=== PATIENT | male | born 1925 | race American Indian/Alaskan Native ===

== ENCOUNTER 2016-07-21 11:30 | Emergency (ER) | payer MEDICARE, OTHER ==
[2016-07-21 11:40] VITALS: BMI 17.3
[2016-07-21] MEDS ORDERED: Sodium Chloride 0.9% 500 ML IV STA (11:55)
[2016-07-21 11:59] VITALS: TEMP 97.5; O2SAT 100
[2016-07-21 12:26] LABS: ADD MANUAL DIFF? NO
[2016-07-21 12:43] LABS: INR 1.06 (0.93-1.08); PARTIAL THROMBOPLASTIN TIME 19.7 Seconds (23.7-30.8)
--- NOTE | 2016-07-21 13:00 | ED PDOC ---
Arrival/HPI - General Chief Complaint: Abdominal Pain Time Seen by Provider: 07/21/16 11:44 Historian: Patient - History of Present Illness Narrative History of Present Illness (Text): 07/21/16 12:32 A 89 year old male, whose past medical history includes hypertension, CHF, cholecystectomy, GI bleed, Hep C, and Renal insufficiency, presents to the emergency room with complaints of periumbilical pain for 2 weeks. Patient notes that this pain is similar to previous episodes in the past. Patient denies any nausea, vomiting, diarrhea, blood in stool, chest pain, shortness of breath, dyspnea on exertion, or any other complaints. Patient states that he has seen his PMD and [employer] for these symptoms. PMD: Dr. Roth Time/Duration: < month (2 weeks) Symptom Onset: Sudden Symptom Course: Unchanged Quality: Other ("Pain") Activities at Onset: Light Context: Home Past Medical History - Provider Review Nursing Documentation Reviewed: Yes - Infectious Disease Hx of Infectious Diseases: None - Tetanus Immunization Tetanus Immunization: Unknown - Cardiac Hx Cardiac Disorders: Yes Hx Hypertension: Yes - Pulmonary Hx Chronic Obstructive Pulmonary Disease (COPD): Yes - Neurological HX Cerebrovascular Accident: Yes - HEENT Hx HEENT Disorder: Yes (Wears glasses.) Hx Cataracts: Yes (Hx of bilateral cataract extractions.) - Renal Hx Renal Failure: Yes - Endocrine/Metabolic Hx Diabetes Mellitus Type 2: Yes - Hematological/Oncological Hx Blood Disorders: Yes Hx Anemia: Yes Hx Hepatitis C: Yes - Integumentary Hx Dermatological Disorder: No - Musculoskeletal/Rheumatological Hx Arthritis: Yes - Gastrointestinal Hx Gastrointestinal Disorders: Yes (GI BLEED) Hx Pancreatitis: Yes - Genitourinary/Gynecological Hx Genitourinary Disorders: Yes (RENAL INSUFFICIENCY,H/O URINARY RETENTION) Hx Reproductive Disorders: Yes (BPH) - Psychiatric Hx Psychophysiologic Disorder: No Hx Substance Use: No - Past Surgical History Past Surgical History: No Previous - Surgical History Hx Joint Replacement: Yes (Hx of Left Hip Replacement; Right Knee Replacement.) Hx Orthopedic Surgery: Yes - Anesthesia Hx Anesthesia: Yes Hx Anesthesia Reactions: No Hx Malignant Hyperthermia: No - Suicidal Assessment Feels Threatened In Home Enviroment: No Family/Social History - Physician Review Nursing Documentation Reviewed: Yes Family/Social History: No Known Family HX Smoking Status: Former Smoker Hx Alcohol Use: No Hx Substance Use: No Hx Substance Use Treatment: No Allergies/Home Meds Allergies/Adverse Reactions: Allergies No Known Allergies Allergy (Verified 07/21/16 11:40) Home Medications: Home Meds Medication Instructions Recorded Confirmed Finasteride 5 mg PO DAILY 07/27/11 07/21/16 Hydrochlorothiazide [HCTZ] 25 mg PO DAILY 10/25/13 07/21/16 Furosemide [Lasix] 40 mg PO DAILY 06/04/15 07/21/16 Lisinopril [Zestril] 5 mg PO DAILY 06/04/15 07/21/16 Physical Exam - Physical Exam Narrative Physical Exam (Text): 07/21/16 13:01 - Review of Systems Constitutional: Normal. absent: Fatigue, Weight Change, Fevers Eyes: Normal ENT: Normal Respiratory: Normal absent: SOB, Cough, Sputum Cardiovascular: Normal absent: Chest pain, Palpitations, Syncope Gastrointestinal: Periumbilical pain. absent: Diarrhea, Nausea, Vomiting Genitourinary: Normal. absent: Dysuria, Frequency, Hematuria Musculoskeletal: Normal. absent: Arthralgias, Back Pain, Neck Pain Skin: Normal Neurological: Normal absent: Focal Weakness Endocrine: Normal Hemo/Lymphatic: Normal Psychiatric: Normal - Physical exam Patient appears age appropriate, speaking full sentences without difficulty - Systems Exam Head: Present: Atraumatic, Normocephalic Pupils: Present: PERRL Extraocular Muscles: Present: EOMI Conjunctiva: Present: Normal Mouth: Present: Moist Mucous Membranes Neck: Present: Normal Range of Motion. No: MIDLINE TENDERNESS, Paraspinal Tenderness Respiratory/Chest: Present: Clear to Auscultation, Good Air Exchange. No: Respiratory Distress, Accessory Muscle Use, Tachypneic Cardiovascular: Present: Regular Rate and Rhythm, Normal S1, S2, Peripheral Pulses Present. No: Murmurs Abdomen: Present: Normal Bowel Sounds, No: Tenderness, Peritoneal Signs, Rebound, Guarding, Distention Back: Present: Normal Inspection. No: Midline Tenderness, Paraspinal Tenderness Upper Extremity: Present: Normal Inspection. No: Cyanosis, Edema Lower Extremity: Present: Normal Inspection. No: Edema Neurological: Present: GCS=15, Speech Normal, cranial nerves II through XII fully intact with no cerebellar abnormality, neuro-sensory fully intact. No focal neurological deficits. Skin: Present: Warm, Dry, Normal Color. No: Rashes Lymphatic: Present: OX3, NI, NC Psychiatric: Present: Alert, Oriented x 3, Normal Insight, Normal Concentration Vital Signs Reviewed: Yes Vital Signs Temp Pulse Resp BP Pulse Ox 07/21/16 13:46 67 17 143/92 H 100 07/21/16 11:30 97.5 F L 60 16 138/80 100 Temperature: Afebrile Blood Pressure: Normal Pulse: Regular Respiratory Rate: Normal Appearance: Positive for: Well-Appearing, Non-Toxic, Comfortable Pain Distress: None Mental Status: Positive for: Alert and Oriented X 3 Medical Decision Making ED Course and Treatment: 07/21/16 13:06 Impression: A 89 year old male with periumbilical pain. No acute findings on examination. Differential Diagnosis included but are not limited to: Dehydration vs. Non- specific abdominal pain vs. Gastritis Plan: -- Abdomen & Pelvis CT -- EKG -- Chest X-ray -- Labs/Urinalysis -- Protonix -- Reassess and disposition Prior Visits: Notes and results from previous visits were reviewed. Patient was in the Emergency department on 05/31/16 for abdominal pain. Patient was discharged home after negative CT scan. Progress Notes: EKG ED physician ordered, reviewed, and independently interpreted the EKG. Rate: 63 BPM Rhythm: NSR Interpretation: No ST elevations, normal axis, normal intervals. Comparison: No changes vs previous EKG on 05/31/16. 07/21/16 14:36 CXR Impression: As read by Dr. Menard, no active disease. Abdomen & Pelvis CT Impression: As read by Dr. Cadena; Markedly limited study due to lack of oral and IV contrast as well as paucity of intra-abdominal and intrapelvic fat Urinary bladder is distended. Mild hydronephrosis bilaterally. Innumerable bilateral renal cysts. Cholecystectomy. Left hip arthroplasty. Ill-defined sclerotic region involving the right femoral head ; avascular necrosis is not excluded. There is decreased mineralization of the bones, most likely representing osteoporosis. Rarely, underlying metabolic bone disease or infiltrative lesions can also have this appearance. This decreases the sensitivity for detection of acute fracture lines, and if this is of clinical concern, MRI should be considered. 07/21/16 15:[address] read noted and relayed to Dr. Roth. Pt denies any LE or hip pain. pt informed of hematuria and importance of f/u with PMD for further w/u On reevaluation, patient reports that she feels much better and would like to be discharged home. Patient's repeat abdominal exam is soft, nontender, non distended with positive bowel sounds in all 4 quadrants and no peritoneal signs. Patient is tolerating PO without any difficulty. Pt states he understands to return to the ER right away for new or worsening symptoms or for inability to f/u with PMD or specialist as instructed. Patient states that he fully agrees with and understands discharge instructions. States that he agrees with the plan and disposition. Verbalized and repeated discharge instructions and plan. I have given the patient opportunity to ask any additional questions. - Lab Interpretations Lab Results: 07/21/16 12:00 07/21/16 13:40 Lab Results 07/21/16 13:40: Urine Color Yellow, Urine Appearance Clear, Urine pH 6.5, Ur Specific [place] 1.010, Urine Protein Negative, Urine Glucose (UA) Negative, Urine Ketones Negative, Urine Blood Trace-lysed H, Urine Nitrate Negative, Urine Bilirubin Negative, Urine Urobilinogen 0.2, Ur Leukocyte Esterase Negative , Urine RBC 1 - 3, Urine WBC 1 - 3, Ur Epithelial Cells 3 - 4, Urine Bacteria Few 07/21/16 13:40: Sodium 139, Potassium 4.0, Chloride 107, Carbon Dioxide 22, Anion Gap 14, BUN 32 H, Creatinine 2.2 H, Est GFR ( Amer) 34, Est GFR ( Non-Af Amer) 28, Random Glucose 100, Calcium 11.0 H, Total Bilirubin 0.5, AST 27 , ALT 35, Alkaline Phosphatase 115, Lactate Dehydrogenase 579, Total Creatine Kinase 124, Troponin I 0.02 D, Total Protein 7.0, Albumin 3.6, Globulin 3.4, Albumin/Globulin Ratio 1.1, Lipase 219 07/21/16 12:00: PT 11.4, INR 1.06, APTT 19.7 L 07/21/16 12:00: WBC 2.4 L* D, RBC 4.30, Hgb 10.9 L, Hct 34.0 L, MCV 79.1 L, MCH 25.3, MCHC 32.1, RDW 18.8 H, Plt Count 181, MPV 10.8, Gran % 67.2, Lymph % (Auto ) 23.0, [place] % (Auto) 8.5 H, Eos % (Auto) 0.4 L, Baso % (Auto) 0.9, Gran # 1.58 , Lymph # 0.5 L, [place] # 0.2, Eos # 0.0, Baso # 0.02 - RAD Interpretation Radiology Orders: 07/21/16 11:55 ABD & PELVIS W/O PO OR IV CONT [CT] Stat CHEST PORTABLE [RAD] Stat - Medication Orders Current Medication Orders: Discontinued Medications Sodium Chloride (Sodium Chloride 0.9%) 500 mls @ 1,000 mls/hr IV .Q30M STA Stop: 07/21/16 12:24 Last Admin: 07/21/16 12:25 Dose: 1,000 mls/hr Pantoprazole Sodium (Protonix Inj) 40 mg IVP STAT STA Stop: 07/21/16 11:56 Last Admin: 07/21/16 12:25 Dose: 40 mg - Scribe Statement The provider has reviewed the documentation as recorded by the Priyank Barrett Provider Scribe Attestation: All medical record entries made by the Priyank were at my direction and personally dictated by me. I have reviewed the chart and agree that the record accurately reflects my personal performance of the history, physical exam, medical decision making, and the department course for this patient. I have also personally directed, reviewed, and agree with the discharge instructions and disposition. Disposition/Present on Arrival - Present on Arrival Any Indicators Present on Arrival: No History of DVT/PE: No History of Uncontrolled Diabetes: No Urinary Catheter: No History of Decub. Ulcer: No History Surgical Site Infection Following: None - Disposition Have Diagnosis and Disposition been Completed?: Yes Diagnosis: Abdominal pain Disposition: HOME/ ROUTINE Disposition Time: 15:18 Patient Plan: Discharge Condition: GOOD Discharge Instructions (ExitCare): Abdominal Pain (ED) Additional Instructions: PLEASE RETURN TO THE EMERGENCY DEPARTMENT FOR NEW OR WORSENING SYMPTOMS. RETURN RIGHT AWAY IF YOU CANNOT FOLLOW UP WITH YOUR PRIMARY CARE DOCTOR, CLINIC, OR SPECIALIST IN 1-2 DAYS. Referrals: Rickey Roth JD, MD [Primary Care Provider] - Follow up with primary
[2016-07-21 13:53] LABS: BASO # 0.02 K/mm3 (0.0-2.0); BASO % 0.9 % (0.0-3.0); EOS % 0.4 % (1.5-5.0); GRAN # 1.58 (1.4-6.5); GRAN % 67.2 % (50.0-68.0); LYMPH # 0.5 (1.2-3.4); MEAN CELL VOLUME 79.1 fL (80.0-105.0); MEAN CORPUSCULAR HEMOGLOBIN 25.3 pg (25.0-35.0); MEAN CORPUSCULAR HGB CONC 32.1 g/dl (31.0-37.0); MEAN PLATELET VOLUME 10.8 fl (7.0-11.0); MONO # 0.2 (0.1-0.6); MONO % 8.5 % (1.0-6.0); PLATELET COUNT 181 10^3/uL (120.0-450.0); RED CELL DISTRIBUTION WIDTH 18.8 % (11.5-14.5)
[2016-07-21 13:53] LABS: PH,URINE 6.5 (4.7-8.0); URINE BILIRUBIN NEGATIVE (NEGATIVE); URINE BLOOD TRACE-LYSED (NEGATIVE); URINE GLUCOSE (UA) NEGATIVE (NEGATIVE); URINE KETONE NEGATIVE (NEGATIVE); URINE LEUKOCYTE ESTERASE NEGATIVE Leu/uL (NEGATIVE); URINE PROTEIN NEGATIVE mg/dL (<30 mg/dL); URINE UROBILINOGEN 0.2 E.U./dL (<1 E.U./dL)
--- NOTE | 2016-07-21 13:53 | RAD ---
HISTORY: cough COMPARISON: 06/04/2015 FINDINGS: LUNGS: No active pulmonary disease. PLEURA: No significant pleural effusion identified, no pneumothorax apparent. CARDIOVASCULAR: Normal. OSSEOUS STRUCTURES: No significant abnormalities. VISUALIZED UPPER ABDOMEN: Normal. OTHER FINDINGS: None. IMPRESSION: No active disease.
[2016-07-21 13:58] LABS: URINE APPEARANCE CLEAR (CLEAR); URINE COLOR YELLOW (YELLOW)
[2016-07-21 14:02] LABS: ALB/GLOB RATIO 1.1 (1.1-1.8); BILIRUBIN,TOTAL 0.5 mg/dL (0.2-1.3)
[2016-07-21 14:02] LABS: WHITE BLOOD COUNT 2.4 10^3/ul (4.5-11.0)
--- NOTE | 2016-07-21 14:08 | CT ---
PROCEDURE: CT Abdomen and Pelvis without Oral or IV contrast. HISTORY: abd pain COMPARISON: CT abdomen and pelvis without IV contrast performed 05/31/16 TECHNIQUE: Contiguous axial images of the abdomen and pelvis. No oral or IV contrast administered. Coronal and Sagittal reformats generated. Radiation dose: Total exam DLP = 183.64 mGy-cm. This CT exam was performed using one or more of the following dose reduction techniques: Automated exposure control, adjustment of the mA and/or kV according to patient size, and/or use of iterative reconstruction technique. FINDINGS: Examination markedly limited due to paucity of intra-abdominal and intrapelvic fat as well as lack of oral or IV contrast. LOWER THORAX: Mild bibasilar atelectasis. There is no visible pleural effusion or pneumothorax. LIVER: Grossly unremarkable unenhanced appearance. GALLBLADDER AND BILE DUCTS: Cholecystectomy. PANCREAS: Not well-visualized; grossly unremarkable. SPLEEN: Unremarkable unenhanced appearance. ADRENALS: Not well-visualized. KIDNEYS AND URETERS: Mild bilateral hydronephrosis. No obstructing renal calculus. Innumerable low-density lesions bilaterally presumably cysts. BLADDER: Distended urinary bladder appears otherwise unremarkable. REPRODUCTIVE: Enlarged heterogeneous prostate gland partially obscured by streak artifact from hip arthroplasty. APPENDIX: Not definitively identified. No secondary signs of acute appendicitis identified. BOWEL: The stomach is nondistended ; evidence of partial gastrectomy. Lack of oral contrast limits evaluation for bowel pathology. No evidence of bowel obstruction. PERITONEUM: No significant free fluid. No definite free air. LYMPH NODES: No bulky lymphadenopathy identified. VASCULATURE: Extensive dense vascular calcifications. BONES: Left hip arthroplasty. Ill-defined sclerotic region involving the right femoral head ; a avascular necrosis is not excluded. There is decreased mineralization of the bones, most likely representing osteoporosis. Rarely, underlying metabolic bone disease or infiltrative lesions can also have this appearance. This decreases the sensitivity for detection of acute fracture lines, and if this is of clinical concern, MRI should be considered. OTHER FINDINGS: None. IMPRESSION: Markedly limited study due to lack of oral and IV contrast as well as paucity of intra-abdominal and intrapelvic fat Urinary bladder is distended. Mild hydronephrosis bilaterally. Innumerable bilateral renal cysts. Cholecystectomy. Left hip arthroplasty. Ill-defined sclerotic region involving the right femoral head ; avascular necrosis is not excluded. There is decreased mineralization of the bones, most likely representing osteoporosis. Rarely, underlying metabolic bone disease or infiltrative lesions can also have this appearance. This decreases the sensitivity for detection of acute fracture lines, and if this is of clinical concern, MRI should be considered. Additional findings as above.
[2016-07-21 14:13] LABS: TROPONIN I 0.02 ng/mL
[2016-07-21 14:27] LABS: URINE BACTERIA FEW (NEG)
--- NOTE | 2016-07-21 14:59 | CARD ---
APPROVED REPORT EKG Measurement Heart [id number] ME [id number] <Conclusion> Normal sinus rhythm Somatic Tremors/Artifact.
[2016-07-21 16:23] VITALS: BP 163/80; PULSE 79; RESP 16
== END 2016-07-21 16:27 | disposition home or self-care (01) ==
LOC: ED 11:30
DX: R10.9 Unspecified abdominal pain (principal)
CPT/HCPCS: 71010; 74176; 80053; 81001; 82550; 83615; 83690; 84484; 85025; 85610; 85730; 87040; 87086; 93005; 96374; 99284; C9113; J7040

== ENCOUNTER 2016-07-25 14:17 | Inpatient (IN) | payer MEDICARE, OTHER ==
[2016-07-25] MEDS ORDERED: Sodium Chloride 0.9% 500 ML IV STA (14:56)
--- NOTE | 2016-07-25 14:57 | ED PDOC ---
Arrival/HPI - General Chief Complaint: Abdominal Pain Time Seen by Provider: 07/25/16 14:19 Historian: Patient - History of Present Illness Narrative History of Present Illness (Text): 07/25/16 15:01 An 89 year old male, whose past medical history includes CHF, hypertension and cholecystectomy, presents to the emergency department complaining of periumbilical pain for the past two weeks. Patient reports similar pain in the past. Patient denies any other complaints at this time. Time/Duration: Other (2 weeks) Symptom Onset: Sudden Symptom Course: Unchanged Quality: Other (pain) Activities at Onset: Rest Context: Home Associated Symptoms (Text): none Past Medical History - Provider Review Nursing Documentation Reviewed: Yes - Infectious Disease Hx of Infectious Diseases: None - Tetanus Immunization Tetanus Immunization: Unknown - Cardiac Hx Cardiac Disorders: Yes Hx Hypertension: Yes - Pulmonary Hx Chronic Obstructive Pulmonary Disease (COPD): Yes - Neurological HX Cerebrovascular Accident: Yes - HEENT Hx HEENT Disorder: Yes (Wears glasses.) Hx Cataracts: Yes (Hx of bilateral cataract extractions.) - Renal Hx Renal Failure: Yes - Endocrine/Metabolic Hx Diabetes Mellitus Type 2: Yes - Hematological/Oncological Hx Blood Disorders: Yes Hx Anemia: Yes Hx Hepatitis C: Yes - Integumentary Hx Dermatological Disorder: No - Musculoskeletal/Rheumatological Hx Arthritis: Yes - Gastrointestinal Hx Gastrointestinal Disorders: Yes (GI BLEED) Hx Pancreatitis: Yes - Genitourinary/Gynecological Hx Genitourinary Disorders: Yes (RENAL INSUFFICIENCY,H/O URINARY RETENTION) Hx Reproductive Disorders: Yes (BPH) - Psychiatric Hx Psychophysiologic Disorder: No Hx Substance Use: No - Past Surgical History Past Surgical History: No Previous - Surgical History Hx Joint Replacement: Yes (Hx of Left Hip Replacement; Right Knee Replacement.) Hx Orthopedic Surgery: Yes - Anesthesia Hx Anesthesia: Yes Hx Anesthesia Reactions: No Hx Malignant Hyperthermia: No - Suicidal Assessment Feels Threatened In Home Enviroment: No Family/Social History - Physician Review Nursing Documentation Reviewed: Yes Family/Social History: No Known Family HX Smoking Status: Former Smoker Hx Alcohol Use: No Hx Substance Use: No Hx Substance Use Treatment: No Allergies/Home Meds Allergies/Adverse Reactions: Allergies No Known Allergies Allergy (Verified 07/25/16 14:37) Home Medications: Home Meds Medication Instructions Recorded Confirmed Finasteride 5 mg PO DAILY 07/27/11 07/21/16 Hydrochlorothiazide [HCTZ] 25 mg PO DAILY 10/25/13 07/21/16 Furosemide [Lasix] 40 mg PO DAILY 06/04/15 07/21/16 Lisinopril [Zestril] 5 mg PO DAILY 06/04/15 07/21/16 Review of Systems - Physician Review All systems were reviewed & negative as marked: Yes Physical Exam - Physical Exam Narrative Physical Exam (Text): 07/25/16 15:03- Review of Systems Constitutional: Normal. absent: Fatigue, Weight Change, Fevers Eyes: Normal ENT: Normal Respiratory: Normal absent: SOB, Cough, Sputum Cardiovascular: Normal absent: Chest pain, Palpitations, Syncope Gastrointestinal: Normal absent: Abdominal pain, Diarrhea, Nausea, Vomiting Genitourinary: Present: periumbilical pain absent: Dysuria, Frequency, Hematuria Musculoskeletal: Normal. absent: Arthralgias, Back Pain, Neck Pain Skin: Normal Neurological: Normal absent: Focal Weakness Endocrine: Normal Hemo/Lymphatic: Normal Psychiatric: Normal - Physical exam Patient appears age appropriate, speaking full sentences without difficulty - Systems Exam Head: Present: Atraumatic, Normocephalic Pupils: Present: PERRL Extraocular Muscles: Present: EOMI Conjunctiva: Present: Normal Mouth: Present: Moist Mucous Membranes Neck: Present: Normal Range of Motion. No: MIDLINE TENDERNESS, Paraspinal Tenderness Respiratory/Chest: Present: Clear to Auscultation, Good Air Exchange. No: Respiratory Distress, Accessory Muscle Use, Tachypneic Cardiovascular: Present: Regular Rate and Rhythm, Normal S1, S2, Peripheral Pulses Present. No: Murmurs Abdomen: Present: Normal Bowel Sounds, No: Tenderness, Peritoneal Signs, Rebound, Guarding, Distention Back: Present: Normal Inspection. No: Midline Tenderness, Paraspinal Tenderness Upper Extremity: Present: Normal Inspection. No: Cyanosis, Edema Lower Extremity: Present: Normal Inspection. No: Edema Neurological: Present: GCS=15, Speech Normal, cranial nerves II through XII fully intact with no cerebellar abnormality, neuro-sensory fully intact. No focal neurological deficits. Skin: Present: Warm, Dry, Normal Color. No: Rashes Lymphatic: Present: OX3, NI, NC Psychiatric: Present: Alert, Oriented x 3, Normal Insight, Normal Concentration Vital Signs Reviewed: Yes Vital Signs Temp Pulse Resp BP Pulse Ox 07/25/16 15:56 69 18 128/71 98 07/25/16 14:29 98.2 F 74 18 130/75 98 Temperature: Afebrile Blood Pressure: Normal Pulse: Regular Respiratory Rate: Normal Appearance: Positive for: Well-Appearing, Non-Toxic, Comfortable Pain Distress: None Mental Status: Positive for: Alert and Oriented X 3 Medical Decision Making ED Course and Treatment: Impression: An 89 year old male with periumbilical pain. On physical exam, patient had no acute findings. Differential Diagnosis include but are not limited to: nonspecific abdominal pain vs. gastritis vs. pancreatitis Plan: -- EKG -- chest xray -- labs -- Urinalysis -- Reassess and disposition Prior Visits: Notes and results from previous visits were reviewed. Patient was last seen in the emergency department on 07/21/16 for evaluation of similar periumbilical pain. Patient was stable and requested to be discharged home. Progress Notes: EKG: Ordered, reviewed, and independently interpreted the EKG. Rate : BPM Rhythm : NSR Interpretation : No ST-segment elevations or depressions, no T-wave inversions, normal intervals. Comparison : No previous EKG for comparison. Chest xray interpreted by ED physician shows no pneumothorax, no cardiomegaly, no infiltrates 07/25/16 16:[address] Rickey Roth in detail, he agrees to admit patient for acute pancreatitis and further workup. Patient aware of and agrees with plan. - Lab Interpretations Lab Results: 07/25/16 15:00 07/25/16 15:00 Lab Results 07/25/16 15:00: pO2 56 H, VBG pH 7.30 L, VBG pCO2 53.0, VBG HCO3 26.1, VBG Total CO2 27.7, VBG O2 Sat (Calc) 92.0 H, VBG Base Excess -1.1 L, VBG Potassium 5.4 H, Sodium 143.0, Chloride 113.0 H, Glucose 113 H, Lactate 2.0, FiO2 21.0, Venous Blood Potassium 5.4 H 07/25/16 15:00: Sodium 141, Chloride 105, Potassium 5.4 H, Carbon Dioxide 26, Anion Gap 15, BUN 45 H, Creatinine 2.7 H, Est GFR ( Amer) 27, Est GFR ( Non-Af Amer) 22, Random Glucose 101, Calcium 12.0 H, Total Bilirubin 0.8, AST 28 , ALT 39, Alkaline Phosphatase 102, Lactate Dehydrogenase 813 H, Total Creatine Kinase 140, Troponin I 0.03 D, Total Protein 7.7, Albumin 4.1, Globulin 3.6, Albumin/Globulin Ratio 1.1, Lipase 380 H 07/25/16 15:00: PT 11.3, INR 1.05, APTT 22.5 L 07/25/16 15:00: WBC 2.8 L*, RBC 4.78, Hgb 12.2 L, Hct 38.2 L, MCV 79.9 L, MCH 25.5, MCHC 31.9, RDW 18.9 H, Plt Count 222, MPV 10.8, Gran % 57.7, Lymph % (Auto ) 32.4, [place] % (Auto) 8.1 H, Eos % (Auto) 1.1 L, Baso % (Auto) 0.7, Gran # 1.64 , Lymph # 0.9 L, [place] # 0.2, Eos # 0.0, Baso # 0.02 I have reviewed the lab results: Yes - RAD Interpretation Radiology Orders: 07/25/16 14:55 CHEST PORTABLE [RAD] Stat - EKG Interpretation Interpreted by ED Physician: Yes Type: 12 lead EKG - Medication Orders Current Medication Orders: Discontinued Medications Sodium Chloride (Sodium Chloride 0.9%) 500 mls @ 1,000 mls/hr IV .Q30M STA Stop: 07/25/16 15:25 Last Admin: 07/25/16 15:15 Dose: 1,000 mls/hr Pantoprazole Sodium (Protonix Inj) 40 mg IVP STAT STA Stop: 07/25/16 14:57 Last Admin: 07/25/16 15:15 Dose: 40 mg - [place] Statement The provider has reviewed the documentation as recorded by the Priyank Wolff All medical record entries made by the Priyank were at my direction and personally dictated by me. I have reviewed the chart and agree that the record accurately reflects my personal performance of the history, physical exam, medical decision making, and the department course for this patient. I have also personally directed, reviewed, and agree with the discharge instructions and disposition. Disposition/Present on Arrival - Present on Arrival Any Indicators Present on Arrival: No History of DVT/PE: No History of Uncontrolled Diabetes: No Urinary Catheter: No History of Decub. Ulcer: No History Surgical Site Infection Following: None - Disposition Have Diagnosis and Disposition been Completed?: Yes Diagnosis: Acute pancreatitis Disposition: HOSPITALIZED Disposition Time: 16:04 Patient Plan: Admission Condition: FAIR
[2016-07-25 15:17] LABS: ADD MANUAL DIFF? NO
[2016-07-25 15:22] LABS: BASO # 0.02 [, K/mm3] (0.0-2.0); BASO % 0.7 % (0.0-3.0); EOS % 1.1 % (1.5-5.0); GRAN # 1.64 (1.4-6.5); GRAN % 57.7 % (50.0-68.0); HEMATOCRIT 38.2 % (42.0-52.0); LYMPH # 0.9 (1.2-3.4); LYMPH % 32.4 % (22.0-35.0); MEAN CELL VOLUME 79.9 fL (80.0-105.0); MEAN CORPUSCULAR HEMOGLOBIN 25.5 pg (25.0-35.0); MEAN CORPUSCULAR HGB CONC 31.9 g/dl (31.0-37.0); MEAN PLATELET VOLUME 10.8 fl (7.0-11.0); MONO # 0.2 (0.1-0.6); MONO % 8.1 % (1.0-6.0); PLATELET COUNT 222 [, 10^3/uL] (120.0-450.0); RED CELL DISTRIBUTION WIDTH 18.9 % (11.5-14.5)
[2016-07-25 15:30] LABS: VENOUS BLOOD GAS BASE EXCESS -1.1 mmol/L (0.0-2.0)
[2016-07-25 15:41] LABS: ALB/GLOB RATIO 1.1 (1.1-1.8); BILIRUBIN,TOTAL 0.8 mg/dL (0.2-1.3); TOTAL PROTEIN 7.7 g/dL (5.8-8.3)
[2016-07-25 15:42] LABS: POTASSIUM 5.4 mmol/L (3.6-5.0)
[2016-07-25 15:47] LABS: INR 1.05 (0.93-1.08); PARTIAL THROMBOPLASTIN TIME 22.5 Seconds (23.7-30.8)
[2016-07-25 15:52] LABS: TROPONIN I 0.03 ng/mL
[2016-07-25 15:53] LABS: WHITE BLOOD COUNT 2.8 [, 10^3/ul] (4.5-11.0)
[2016-07-25] MEDS ORDERED: Morphine 2 mg/ml ISec IVP STA (16:06)
[2016-07-25] MEDS: Sodium Chloride 0.9% 1,000 ML IV SCH (17:00)
[2016-07-25 20:19] LABS: VENOUS BLOOD PH 7.43 (7.32-7.43)
--- NOTE | 2016-07-25 20:54 | CARD ---
APPROVED REPORT EKG Measurement Heart [id number] <Conclusion> Sinus rhythm with premature atrial complexes Otherwise normal ECG
--- NOTE | 2016-07-26 10:28 | RAD ---
HISTORY: cough COMPARISON: 07/21/2016 FINDINGS: LUNGS: No active pulmonary disease. PLEURA: No significant pleural effusion identified, no pneumothorax apparent. CARDIOVASCULAR: Normal. OSSEOUS STRUCTURES: No significant abnormalities. VISUALIZED UPPER ABDOMEN: Normal. OTHER FINDINGS: None. IMPRESSION: No active disease.
--- NOTE | 2016-07-26 16:18 | HP ---
HISTORY OF PRESENT ILLNESS: The patient is an 89-year-old male admitted through the Emergency Room c omplaining of 1-2 days of increasing abdominal pain. No nausea, no vomiting, no diarrhea, no jaundic e, no fever, no chills, no dysuria. The patient has a history of recurrent pancreatitis in the past and was found to have an elevation of his lipase level at 380 and is admitted for further evaluation and treatment. 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 PAST SURGICAL HISTORY: Includes benign prostatic hypertrophy. CURRENT MEDICATIONS: Include finasteride 5 mg daily, Imdur 30 mg daily, Protonix 40 mg daily and Michael aLax p.r.n. He is also on hydrochlorothiazide 25 mg, Lasix 40 mg daily, and lisinopril 5 mg daily. ALLERGIES: The patient has no known drug allergies. SOCIAL HISTORY: The patient lives alone. He is independent with ADLs and needs some assistance with IADLs. He has a greater than 24-donj-lsct history of tobacco use. There is no history of alcohol u se. REVIEW OF SYSTEMS: Essentially negative other than above. The patient denies any chest pain or shor tness of breath. 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 He has had significant weight loss over the past several months. PHYSICAL EXAMINATION: GENERAL: The patient is a somewhat cachectic male in no acute distress. VITAL SIGNS: Blood pressure 130/82, pulse 59, temperature 97.5, respiratory rate 18. HEENT: Head is normocephalic, atraumatic. Pupils equal, round and reactive to light. Extraocular m ovements intact. NECK: Supple, with no thyromegaly, no carotid bruit. LUNGS: Clear. HEART: Regular rate and rhythm. ABDOMEN: Soft with mild epigastric tenderness to palpation with no guarding, no rebound. Bowel soun ds are normoactive. EXTREMITIES: Without cyanosis, clubbing or edema. There is some clubbing and generalized muscular a trophy of all 4 extremities bilaterally. NEUROLOGIC: The patient is awake and oriented x 3 without focal sensory or motor deficits. SKIN: Warm and dry. LABORATORY DATA: WBC is 2.8, hemoglobin 12.2, hematocrit 38.2. Sodium 141, potassium 5.4, chloride 105, CO2 of 26, BUN 45, creatinine 2.7. Calcium is slightly elevated at 12.0. LDH is 813. Lipase e levated at 380. IMPRESSION: 1. Acute pancreatitis. 2. Hyperkalemia, possibly secondary to angiotensin converting enzyme inhibitors. 3. Chronic obstructive pulmonary disease. 4. Hypertension. 5. Coronary artery disease. 6. Benign prostatic hypertrophy. PLAN: Will hold DAVID inhibitors, monitor blood pressure. Will obtain GI consult from Dr. Leon alvarado possible MRCP. Will maintain patient on liquid diet, n.p.o. except for meds and clear liquid diet. Monitor electrolytes and calcium level. Rickey L Gonzalez BOYKIN MD cc: 353 TT: 07/26/2016 16:17:17 mn
--- NOTE | 2016-07-26 18:24 | PN ---
DATE: 07/26/2016 Seen and examined at the bedside earlier today. He does complain of abdominal discomfort. No nausea or vomiting. Rates the pain at 10/10. He is on a full liquid diet and tolerated half of it. No reports of any fever, chills, shortness of breath or chest pain. VITAL SIGNS: Temperature is 97.5, blood pressure 130/82, pulse 59, respirations 18, 100% on room air. LABORATORY DATA: No new labs are noted for today. PHYSICAL EXAMINATION: HEENT: Sclerae anicteric. NECK: Supple. CARDIAC: S1, S2. LUNGS: Decreased breath sounds but good air entry. ABDOMEN: With bowel sounds. It is soft. He does have some tenderness, but no rebound or guarding. EXTREMITIES: No edema. NEUROLOGIC: Awake, alert, and oriented. ASSESSMENT: This is an 89-year-old male with a history of CHF, hypertension, cholecystectomy, complaining of periumbilical pain x 2 weeks. The patient is here with acute pancreatitis, history of coronary artery disease and diabetes mellitus. The patient with hyperkalemia, may be secondary to DAVID inhibitor. PLAN: I spoke with the patient, he agrees to have MRCP for further evaluation of the pancreas. This is going to be done without contrast. Keep him on a liquid diet. Monitor LFTs and enzymes. He is going to have repeat labs, monitor the potassium, continue IV fluids for hydration. The patient was seen and case discussed with Dr. Quintero. Nancy CASTANON cc: 451 TT: 07/26/2016 18:23:13 Confirmation # [id number] Dictation # [id number] nanci BAKER
[2016-07-26] MEDS: Sodium Chloride 0.9% 1,000 ML IV SCH (19:39)
[2016-07-27] MEDS ORDERED: Magnesium Hydroxide Susp 30 ml UD PO ONE (00:33)
--- NOTE | 2016-07-27 01:25 | CP.PCM.PN ---
Subjective - Date & Time of Evaluation Date of Evaluation: 07/27/16 Time of Evaluation: 01:24 - Subjective Subjective: S:Patient was seen at bedside . Complained of having no bowel movement in 2 days. States that he takes dulcolax at home sometimes. Has no other complaints. Pertinent medical record was reviewed. O:VSS. Not in distress. ABD:Soft , non tender. Bowel sounds + A:Constipation. P:MOM 30 CC PO stat. Objective - Vital Signs/Intake and Output Vital Signs (last 24 hours): Temp Pulse Resp BP Pulse Ox 97.6 F 60 18 120/80 100 07/26/16 16:00 07/26/16 16:00 07/26/16 16:00 07/26/16 16:00 07/26/16 16:00 Intake and Output: 07/26/16 07/27/16 18:59 06:59 Intake Total 120 420 Output Total 300 150 Balance -180 270 - Medications Medications: Current Medications Sodium Chloride (Sodium Chloride 0.9%) 1,000 mls @ 60 mls/hr IV .[id number] DENNIS Last Admin: 07/26/16 19:39 Dose: 60 mls/hr - Labs Labs: PT 11.3 Seconds (9.9-11.8) 07/25/16 15:00 INR 1.05 (0.93-1.08) 07/25/16 15:00 APTT 22.5 Seconds (23.7-30.8) L 07/25/16 15:00
[2016-07-27 07:16] LABS: ADD MANUAL DIFF? NO
[2016-07-27 07:19] LABS: BASO # 0.02 [, K/mm3] (0.0-2.0); BASO % 0.7 % (0.0-3.0); EOS # 0.1 (0.0-0.7); EOS % 3.7 % (1.5-5.0); GRAN # 1.65 (1.4-6.5); GRAN % 55.5 % (50.0-68.0); HEMATOCRIT 37.1 % (42.0-52.0); LYMPH # 0.9 (1.2-3.4); MEAN CELL VOLUME 79.4 fL (80.0-105.0); MEAN CORPUSCULAR HEMOGLOBIN 25.1 pg (25.0-35.0); MEAN CORPUSCULAR HGB CONC 31.5 g/dl (31.0-37.0); MEAN PLATELET VOLUME 11.4 fl (7.0-11.0); MONO # 0.3 (0.1-0.6); MONO % 9.1 % (1.0-6.0); PLATELET COUNT 227 [, 10^3/uL] (120.0-450.0); RED CELL DISTRIBUTION WIDTH 18.7 % (11.5-14.5)
[2016-07-27 07:52] LABS: BILIRUBIN,TOTAL 0.7 mg/dL (0.2-1.3); CALCIUM 11.2 mg/dL (8.4-10.5); POTASSIUM 5.2 mmol/L (3.6-5.0); TOTAL PROTEIN 6.8 g/dL (5.8-8.3)
--- NOTE | 2016-07-27 14:06 | MRI ---
PROCEDURE: Magnetic Resonance Cholangiopancreatography HISTORY: Acute pancreatitis COMPARISON: None available. TECHNIQUE: Multiplanar, multisequence MR images of the abdomen were obtained, including heavily T2 weighted MRCP images of the biliary system. Rotating maximum intensity projection images of the biliary system were generated. FINDINGS: MRCP: The gallbladder has been removed. There is secondary enlargement of the common bile duct which measures 10 mm in diameter. There is also tortuosity of the common duct. There are no intraductal stones. LIVER: Several liver lesions are still seen which are high in signal intensity and well-circumscribed. These probably represent cysts or hemangiomas. GALLBLADDER: Unremarkable. SPLEEN: Unremarkable. PANCREAS: There is dilatation of a portion of the pancreatic duct in the head of the pancreas. This probably represents a pancreatic divisum. The pancreatic duct in the body and tail of the pancreas is normal in caliber. Findings are best appreciated on axial image 13 series 3. There is no pancreatic swelling or edema ADRENALS: Unremarkable. KIDNEYS: Multiple simple cysts are seen in the kidneys. AORTA: No aneurysm. ASCITES: None. OTHER FINDINGS: The report concurs with the preliminary [facility] report IMPRESSION: Mildly dilated common bile duct most likely secondary to previous cholecystectomy. No evidence of common duct stone. Probable variation of pancreatic ducts. Pancreatic two-views Um. Dilated pancreatic duct in the pancreatic head Well-circumscribed lesions in the liver most likely cysts or hemangiomas
[2016-07-27] MEDS: Sodium Chloride 0.9% 1,000 ML IV SCH (14:45)
--- NOTE | 2016-07-27 15:18 | PN ---
DATE: 07/27/2016 SUBJECTIVE: The patient is lying in bed in no acute distress. He complains of some epigastric disco mfort. There is no nausea, no vomiting, no diarrhea, no jaundice, no chest pain or shortness of rodolfo th. PHYSICAL EXAMINATION: VITAL SIGNS: Blood pressure 146/87, temperature 97.5, pulse 59, respiratory rate 19. LUNGS: Clear. HEART: Regular rate and rhythm. ABDOMEN: Soft. There is mild epigastric tenderness with no guarding, no rebound. Bowel sounds are normoactive. EXTREMITIES: Without cyanosis, clubbing, or edema. NEUROLOGIC: The patient is awake and oriented x 3 without focal sensory or motor deficits. SKIN: Warm and dry. LABORATORY DATA: WBC is 3.0, hemoglobin 11.7, hematocrit 37.1. Sodium 143, potassium 5.2, chloride 109, CO2 of 29, BUN 28, creatinine 1.8, glucose 84. Calcium is elevated at 11.2. Amylase is 327. IMPRESSION: 1. Acute pancreatitis. 2. Hyperkalemia, possibly secondary to angiotensin-converting enzyme inhibitors, improving. 3. Hypercalcemia, rule out hyperparathyroidism versus secondary to occult malignancy. 4. Chronic obstructive pulmonary disease. 5. Hypertension. 6. Coronary artery disease. 7. Benign prostatic hypertrophy. PLAN: Await results of MRCP. Continue GI followup with Dr. Quintero. Continue liquid diet. Monito r electrolytes, calcium level. Check parathyroid hormone level as well as magnesium and phosphate. Continue GI followup with Dr. Quintero. Rickey Roth JD, MD cc: 353 TT: 07/27/2016 15:17:13 Confirmation # [id number] Dictation # [id number] sn
--- NOTE | 2016-07-27 16:12 | PN ---
DATE: 07/27/2016 Seen and examined at the bedside earlier today. This afternoon, the patient still has abdominal pain , but no acute distress. Denies any nausea or vomiting. He had a Dulcolax suppository. He has not had a bowel movement. So far, he is tolerating the clear liquids. He went for an MRCP yesterday and this shows a mildly dilated common bile duct, most likely secondary to previous cholecystectomy. No evidence of CBD stone. Pancreas shows a probable variation of pancreatic ducts. May represent a pa ncreatic divisum. The pancreatic duct and the body and tail of the pancreas is normal in caliber. N o pancreatic swelling or edema. He is noted to have simple cysts in the right kidney. There are wel l-circumcised lesions in the liver, mostly likely cysts or hemangiomas. PHYSICAL EXAMINATION: HEENT: Sclera is anicteric. NECK: Supple. CARDIAC: S1, S2. LUNGS: Sounds are clear. ABDOMEN: With bowel sounds, soft. He does have some mid epigastric tenderness. No rebound or guard ing. EXTREMITIES: No edema. NEUROLOGIC: He is awake, alert, and oriented. ASSESSMENT: The patient with abdominal pain, likely secondary to the acute pancreatitis. He has his tory of a cholecystectomy. The patient went for an MRCP, ____ dilation of pancreatic duct in the hea d of the pancreas, may likely be a pancreatic divisum. He is also noted to have liver lesions, repor ting that it could be cysts or hemangiomas. The patient in the past, back in 2014, had a liver biops y that was benign vascular proliferation consistent with hemangioma, constipation. PLAN: Continue a full liquid diet for now. If the patient's pain improves, maybe we can consider st arting on solid. We will start him on some MiraLax and continue the IV fluids for hydration. We kenzie l put him on some gastrointestinal prophylaxis as well. The patient was seen and case discussed with Dr. Quintero. Nancy Harrison LG cc: 451 TT: 07/27/2016 16:11:51 Confirmation # [id number] Dictation # [id number] sn
[2016-07-27 16:18] LABS: MAGNESIUM 2.5 mg/dL (1.7-2.2); PHOSPHOROUS 2.9 mg/dL (2.5-4.5)
[2016-07-27] MEDS: POLYETHYLENE GLYCOL 3350 17 GM/Dose PACKET PO SCH (16:51)
--- NOTE | 2016-07-28 09:31 | PN ---
DATE: 07/27/2016 This is an addendum to the GI progress report dictated by Nancy Harrison NP. The patient was seen and evaluated earlier. This 89-year-old patient admitted with pancreatitis, history of weight loss. The patient did have an MRCP which was reviewed. Status post cholecystectomy, no CBD stone. The patient has a renal insuff iciency. The MRI was done without a contrast. The patient had small lesions in the liver which were biopsied before, determined to be hemangioma. The MRI suggestive of variant pancreatic duct/head ar ea. We will review with the radiologist again with the previous studies. The common bile duct size of 8 mm in a patient with status post cholecystectomy and an 89-year-old may be ____. There is some mild tenderness on examination noticed in the epigastric area. His lipase level is near normalized. Amylase is mildly elevated still, 327. His other comorbidities include hypercalcemia, weight loss, chronic obstructive pulmonary disease, co ronary artery disease, chronic kidney disease and hyperkalemia. Thank you very much for allowing us to participate in the care of the patient. The etiology for this hypercalcemia is unclear. Rule out occult malignancy to be considered. Dedrick Quintero MD cc: [id number] TT: 07/28/2016 08:30:04 Confirmation # [id number] Dictation # [id number] ma 07/28/2016 08:30:01
[2016-07-28] MEDS: POLYETHYLENE GLYCOL 3350 17 GM/Dose PACKET PO SCH ×2 (09:34→17:39)
[2016-07-28 11:59] LABS: ADD MANUAL DIFF? NO
[2016-07-28 12:12] LABS: ALB/GLOB RATIO 0.9 (1.1-1.8); BASO # 0.01 [, K/mm3] (0.0-2.0); BASO % 0.3 % (0.0-3.0); BILIRUBIN,TOTAL 0.5 mg/dL (0.2-1.3); CALCIUM 10.9 mg/dL (8.4-10.5); EOS # 0.1 (0.0-0.7); GRAN # 1.84 (1.4-6.5); GRAN % 60.3 % (50.0-68.0); HEMATOCRIT 38.6 % (42.0-52.0); LYMPH # 0.8 (1.2-3.4); LYMPH % 27.2 % (22.0-35.0); MEAN CELL VOLUME 79.4 fL (80.0-105.0); MEAN CORPUSCULAR HEMOGLOBIN 25.3 pg (25.0-35.0); MEAN CORPUSCULAR HGB CONC 31.9 g/dl (31.0-37.0); MONO # 0.3 (0.1-0.6); MONO % 9.2 % (1.0-6.0); PLATELET COUNT 211 [, 10^3/uL] (120.0-450.0); POTASSIUM 4.6 mmol/L (3.6-5.0); RED CELL DISTRIBUTION WIDTH 18.6 % (11.5-14.5); TOTAL PROTEIN 6.8 g/dL (5.8-8.3); WHITE BLOOD COUNT 3.1 [, 10^3/ul] (4.5-11.0)
--- NOTE | 2016-07-28 14:29 | PN ---
DATE: 07/28/2016 SUBJECTIVE: The patient is lying in bed in no acute distress. He complains of some epigastric/abdom inal discomfort. There is no nausea, no vomiting, no diarrhea, no jaundice, no chest pain or shortne ss of breath. OBJECTIVE: VITAL SIGNS: Blood pressure 139/87, pulse 69, temperature 97.9, respiratory rate 18. LUNGS: Clear. HEART: Regular rate and rhythm. ABDOMEN: Soft. There is mild epigastric tenderness to palpation with no guarding, no rebound. Rui l sounds are normoactive. EXTREMITIES: Without cyanosis or edema. NEUROLOGIC: The patient is awake and oriented x 3 without focal sensory or motor deficits. SKIN: Warm and dry. LABORATORY DATA: WBC is 3.1, hemoglobin 12.3, hematocrit 38.6. Sodium 138, potassium 4.6, chloride 105, CO2 27, BUN 19, creatinine 1.4, glucose 84. Lipase is elevated at 409. Calcium remains slightl y elevated at 10.9. Parathyroid hormone is pending. IMPRESSION: 1. Acute pancreatitis, probably secondary to pancreatic divisum. 2. Hyperkalemia, resolved. 3. Mild hypercalcemia, rule out hyperparathyroidism. 4. Chronic obstructive pulmonary disease. 5. Hypertension. 6. Coronary artery disease. 7. Benign prostatic hypertrophy. PSA is within normal limits. PLAN: MRCP showed dilated common bile duct, most likely secondary to previous cholecystectomy with n o evidence of stones with a probable variation of the pancreatic ducts. No pancreatic tumor was demo nstrated. Continue GI followup with Dr. Quintero. Continue liquid diet. Monitor electrolytes, calc ium level and lipase. Parathyroid hormone level is pending. Physical therapy and social work for kody ha planning. Rickey Roth JD, MD cc: 353 TT: 07/28/2016 14:28:52 Confirmation # [id number] Dictation # [id number] marce
--- NOTE | 2016-07-28 16:18 | PN ---
DATE: 07/28/2016 HISTORY OF PRESENT ILLNESS: Seen and examined at the bedside earlier today. The patient is still grissom ving abdominal pain in the epigastric area. No reports of nausea or vomiting. The patient still not had a bowel movement, but he is passing flatus. No reports of shortness of breath or chest pain. VITAL SIGNS: Temperature is 97.9, blood pressure 139/87, pulse 69, respirations 18, 98 on room air. LABORATORY DATA: Sodium is 138, potassium 4.6, BUN is 19, creatinine is 1.4. LFTs are within normal limits. The lipase is 409. This is actually elevated compared to last lipase level at 264. WBC is 3.1, H is 12.3 and 38.6, platelets of 211. PHYSICAL EXAMINATION: HEENT: Sclera is anicteric. NECK: Supple. CARDIAC: S1, S2. LUNGS: Decreased breath sounds, no rales or wheeze. ABDOMEN: With bowel sounds, soft, with positive epigastric discomfort. No rebound, guarding, or org anomegaly. EXTREMITIES: No edema noted. NEUROLOGIC: Awake, alert, and oriented. ASSESSMENT: Acute pancreatitis, status post magnetic resonance cholangiopancreatography, report panc reatic divisum, improved, hyperkalemia, constipation, chronic obstructive pulmonary disease, coronary artery disease. The patient also has history of cholecystectomy. PLAN: The patient is on a full liquid diet. We will continue that for now, but request for, make solorio re it is low fat. Monitor his lipase levels. The patient will increase the MiraLAX from daily to b. i.d. The patient is on IV fluids of normal saline at 60. Continue GI prophylaxis. He is on Pepcid 20 IV daily. The patient also with hypercalcemia, which is slowly improving, and improve hyperkalemi a. The patient was seen and case discussed with Dr. Quintero. Nancy Harrison LG cc: 451 TT: 07/28/2016 16:18:01 Confirmation # [id number] Dictation # [id number] dn
[2016-07-29 07:51] LABS: ADD MANUAL DIFF? NO
[2016-07-29 08:00] LABS: BASO # 0.03 [, K/mm3] (0.0-2.0); BASO % 0.8 % (0.0-3.0); EOS # 0.1 (0.0-0.7); EOS % 3.1 % (1.5-5.0); GRAN % 52.9 % (50.0-68.0); HEMATOCRIT 37.1 % (42.0-52.0); LYMPH # 1.3 (1.2-3.4); LYMPH % 35.7 % (22.0-35.0); MEAN CELL VOLUME 78.9 fL (80.0-105.0); MEAN CORPUSCULAR HEMOGLOBIN 25.3 pg (25.0-35.0); MEAN CORPUSCULAR HGB CONC 32.1 g/dl (31.0-37.0); MEAN PLATELET VOLUME 10.8 fl (7.0-11.0); MONO # 0.3 (0.1-0.6); MONO % 7.5 % (1.0-6.0); PLATELET COUNT 192 [, 10^3/uL] (120.0-450.0); RED CELL DISTRIBUTION WIDTH 18.5 % (11.5-14.5); WHITE BLOOD COUNT 3.6 [, 10^3/ul] (4.5-11.0)
[2016-07-29 08:17] LABS: ALB/GLOB RATIO 0.9 (1.1-1.8); ALKALINE PHOSPHATASE 89 U/L (38-133); ALT/SGPT 33 U/L (7-56); AST/SGOT 28 U/L (15-59); BILIRUBIN,TOTAL 0.7 mg/dL (0.2-1.3); BLOOD UREA NITROGEN 16 mg/dL (7-21); CALCIUM 10.7 mg/dL (8.4-10.5); CARBON DIOXIDE 24 mmol/L (21-33); CHLORIDE 105 mmol/L (98-107); GFR AFRICAN-AMERICAN > 60; GLUCOSE,RANDOM 71 mg/dL (70-110); LIPASE 387 U/L (23-300); POTASSIUM 5.2 mmol/L (3.6-5.0); SODIUM 135 mmol/L (132-148); TOTAL PROTEIN 6.5 g/dL (5.8-8.3)
[2016-07-29] MEDS: POLYETHYLENE GLYCOL 3350 17 GM/Dose PACKET PO SCH ×2 (09:54→17:17)
--- NOTE | 2016-07-29 12:46 | PN ---
DATE: 07/29/2016 SUBJECTIVE: The patient is lying in bed in no acute distress. His epigastric/abdominal discomfort h as diminished. There is no nausea, no vomiting, no diarrhea, no jaundice, no chest pain or shortness of breath. OBJECTIVE: VITAL SIGNS: Blood pressure 131/85, temperature 98.3, pulse 70, respiratory rate 19. LUNGS: Clear. HEART: Regular rate and rhythm. ABDOMEN: Soft, mild epigastric tenderness to palpation. No guarding, no rebound. Bowel sounds are normoactive. EXTREMITIES: Without cyanosis or edema. NEUROLOGIC: The patient is awake and oriented x 3 without focal sensory or motor deficits. SKIN: Warm and dry. LABORATORY DATA: WBC is 3.6, hemoglobin 11.9, hematocrit 37.1, sodium 135, potassium 5.2, chloride 1 05, CO2 24, BUN 16, creatinine 1.3, glucose 71. Calcium slightly elevated at 10.7. Lipase is elevat ed at 387. IMPRESSION: 1. Acute pancreatitis, probably secondary to pancreatic divisum, status post MRCP. 2. Mild hyperkalemia. 3. Mild hypercalcemia, rule out hyperparathyroidism. PTH is pending. 4. Chronic obstructive pulmonary disease. 5. Hypertension. 6. Coronary artery disease. 7. Benign prostatic hypertrophy. PLAN: The patient has no IV access at the present time. Will hold IV fluids. We will monitor lipas e levels and clinical symptoms as well as serum calcium level. Will obtain a PICC line and restart I V fluids if patient does not improve. Physical therapy and social work for discharge planning. Rickey Roth JD, MD cc: 353 TT: 07/29/2016 12:45:56 Confirmation # [id number] Dictation # [id number] marce
[2016-07-30] MEDS: POLYETHYLENE GLYCOL 3350 17 GM/Dose PACKET PO SCH ×2 (09:31→17:02)
--- NOTE | 2016-07-30 13:33 | PN ---
DATE: 07/30/2016 SUBJECTIVE: The patient is lying in bed, in no acute distress. He is tolerating a regular diet. He has no abdominal pain. There is no nausea, no vomiting, no diarrhea or jaundice. He denies chest p ain or shortness of breath. OBJECTIVE: VITAL SIGNS: Blood pressure 123/76, temperature 98.7, pulse 72, respiratory rate 18. LUNGS: Clear. HEART: Regular rate and rhythm. ABDOMEN: Soft, nontender, bowel sounds are normoactive. No guarding, no rebound. EXTREMITIES: Without cyanosis or edema. NEUROLOGIC: The patient is awake and oriented x 3 without focal, sensory or motor deficits. SKIN: Warm and dry. IMPRESSION: 1. Acute pancreatitis, probably secondary to pancreatic divisum, status post magnetic resonance chol angiopancreatography. 2. Mild hyperkalemia. 3. Mild hypercalcemia, possibly secondary to hyperparathyroidism. 4. Chronic obstructive pulmonary disease. 5. Hypertension. 6. Coronary artery disease. 7. Benign prostatic hypertrophy. PLAN: Check labs, lipase, calcium level in a.m. Continue GI followup with Dr. Quintero. Physical t herapy and social work for discharge planning. Rickey Roth JD, MD cc: 353 TT: 07/30/2016 13:32:47 Confirmation # [id number] Dictation # [id number] en
--- NOTE | 2016-07-30 18:09 | PN ---
DATE: 07/30/2016 SUBJECTIVE: This patient was seen and evaluated earlier. This 89-year-old patient was admitted with abdominal pain, probably secondary to pancreatitis. Suspected pancreas divisum. Status post MRCP done, which was reviewed. On examination, the patient is still complaining of pain in the epigastric area and a history of loss of weight. The MRI was slightly limited with motion artifact. The MRI reported as mildly dilated CBD and pancreatic duct. The patient's previous records reviewed, has a cyst in the pancreas, uncinate process. The patient also had multiple lesions of the liver, suspected of a cyst or a hemangioma on exam. The patient's concern is he is still losing weight and epigastric pain, history of ulcerated gastric polyps in the past, which pathology was hyperplastic polyp. The reasonable thing is to consider upper GI endoscopy to further evaluate. Will continue to closely follow up his care and suggest further management based on the clinical course. Dedrick Quintero MD cc: 416 TT: 07/30/2016 18:08:36 Confirmation # [id number] Dictation # [id number] corona BAKER
--- NOTE | 2016-07-30 18:51 | PN ---
DATE: 07/30/2016 SUBJECTIVE: This patient was seen and evaluated earlier today. The patient still complains of some discomfort in the epigastric area. PHYSICAL EXAMINATION: VITAL SIGNS: Temperature is 98.7, pulse 72, blood pressure is 123/76, respirations 18. HEENT: Atraumatic, anicteric. NECK: Supple. HEART: S1, S2 heard. LUNGS: Bilateral air entry present. ABDOMEN: Soft. There is tenderness present in the epigastric area. EXTREMITIES: No edema. No cyanosis. LABORATORY DATA: Lipase yesterday was 387. The patient has hypercalcemia 10.7 . IMPRESSION/PLAN: This 89-year-old patient is admitted with abdominal pain, has hypercalcemia, history of dilated pancreatic duct and cystic lesions in the pancreas. 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 History of gastric polyps in the past. It is reasonable to consider upper GI endoscopy to further evaluate. Thank you very much for allowing us to participate in the care of the patient. Dedrick Quintero MD cc: 416 TT: 07/30/2016 18:50:15 Confirmation # [id number] Dictation # [id number] nanci BAKER
[2016-07-31 07:43] LABS: BASO # 0.01 [, K/mm3] (0.0-2.0); BASO % 0.4 % (0.0-3.0); EOS # 0.1 (0.0-0.7); EOS % 3.3 % (1.5-5.0); GRAN # 1.42 (1.4-6.5); GRAN % 51.3 % (50.0-68.0); HEMATOCRIT 36.4 % (42.0-52.0); LYMPH # 0.9 (1.2-3.4); LYMPH % 34.1 % (22.0-35.0); MEAN CORPUSCULAR HEMOGLOBIN 25.6 pg (25.0-35.0); MEAN CORPUSCULAR HGB CONC 32.4 g/dl (31.0-37.0); MEAN PLATELET VOLUME 10.7 fl (7.0-11.0); MONO # 0.3 (0.1-0.6); MONO % 10.9 % (1.0-6.0); PLATELET COUNT 194 [, 10^3/uL] (120.0-450.0); RED CELL DISTRIBUTION WIDTH 18.6 % (11.5-14.5)
[2016-07-31 07:47] LABS: ALB/GLOB RATIO 0.9 (1.1-1.8); BILIRUBIN,TOTAL 0.4 mg/dL (0.2-1.3); CALCIUM 10.7 mg/dL (8.4-10.5); POTASSIUM 4.5 mmol/L (3.6-5.0); TOTAL PROTEIN 6.4 g/dL (5.8-8.3)
[2016-07-31 08:30] LABS: ADD MANUAL DIFF? NO; WHITE BLOOD COUNT 2.8 [, 10^3/ul] (4.5-11.0)
[2016-07-31] MEDS: POLYETHYLENE GLYCOL 3350 17 GM/Dose PACKET PO SCH ×2 (09:06→18:38)
[2016-07-31] MEDS ORDERED: Midazolam 2 MG/2 ML VIAL ONE (17:20)
[2016-07-31] MEDS ORDERED: Lidocaine 2% Inj (20ml) ONE (17:28)
[2016-07-31] MEDS ORDERED: Phenylephrine 10 mg/ml Inj ONE (17:40)
[2016-07-31] MEDS ORDERED: Lactated Ringer's 1,000 ML IV SCH (18:03)
[2016-07-31 18:10] VITALS: TEMP 98.1; O2SAT 95
[2016-07-31 18:23] VITALS: RESP 18
--- NOTE | 2016-07-31 20:06 | DS ---
HOSPITAL COURSE: The patient is an 89-year-old male admitted through the Emergency Department on 04/2016 with abdominal pain. He was found to have an elevated lipase level of 388 and was admitted f or further evaluation and treatment. He was started on a clear liquid diet with IV fluids. He also was noted to have hypercalcemia with a calcium level of 12.0. The patient was seen in consultation jesus MORFIN, Dr. Quintero. An MRCP was performed on 07/26/2016 which was consistent with pancreatic divisum . The patient's abdominal pain has abated. There is no nausea, no vomiting, no diarrhea, no jaundic e. The lipase level remains slightly elevated; however, the patient is medically stable for discharg e and wishes to go home at the present time. There is no fever, no chills, no melena, no bright red blood per rectum. PHYSICAL EXAMINATION: VITAL SIGNS: Blood pressure 127/78, temperature 97.8, pulse 62, respiratory rate 18. LUNGS: Clear. HEART: Regular rate and rhythm. ABDOMEN: Soft, nontender, bowel sounds are normoactive. EXTREMITIES: Without cyanosis or edema. NEUROLOGIC: The patient is awake and oriented x 3 without focal sensory or motor deficits. SKIN: Warm and dry. IMPRESSION: 1. 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 2. Mild hypercalcemia probably secondary to hyperparathyroidism. 3. Chronic obstructive pulmonary disease. 4. Hypertension. 5. Coronary artery disease. 6. Benign prostatic hypertrophy, on finasteride. PLAN: The patient will be discharged to home in stable condition on the following medications: Zant ac 150 mg twice daily and Proscar 5 mg daily. He will be maintained on a regular diet, activities ad libitum. He will be seen as an outpatient in the office in the next 1-2 weeks and will follow up [facility], Dr. Quintero, for continued GI workup. Rickey Roth JD, MD cc: 353 TT: 07/31/2016 20:05:34 nanci
[2016-07-31 20:26] VITALS: BP 122/69; PULSE 66
--- NOTE | 2016-07-31 21:00 | PN ---
DATE: 07/31/2016 ADDENDUM This is an addendum to the GI progress report. This patient was seen and evaluated earlier. The patient still continues to complain of some epigastric discomfort. PHYSICAL EXAMINATION: VITAL SIGNS: Stable. ABDOMEN: Soft. There is no mass palpable. IMPRESSION: This 89-year-old patient was admitted with epigastric pain, mildly elevated pancreatic enzymes. MRI was suggestive of pancreatic divisum. Ct scan was reviewed, suggestive of possible IPMN. The reasonable thing to do for this patient would to do a repeat EGD to further evaluate. The patient is scheduled for discharge today. I have discussed with Dr. Roth. An informed consent was obtained from the patient and proceeded with EGD/EUSexamination. PROCEDURE FINDINGS: This patient had an upper GI endoscopy up with the use of endoscopic ultrasound examination done today. Per the endoscopy there was Billroth II partial gastrectomy with significant erythema diffuse in the stomach component. Anastomosis appears otherwise patent and no ulcerations noticed. A biopsy was taken from the gastric mucosa. The patient then proceeded with the endoscopic ultrasound. Endoscopic ultrasound revealed a dilated proximal pancreatic duct in the genu extending to the neck genu, extending to the head up to 6 mm. Unfortunately, the evaluation in the ampullary area was incomplete because of the Billroth II gastrectomy. The common bile duct could not be evaluated for the same reason. In the body of the pancreatic duct also was dilated measuring up to 4 mm. Clearly, endoscopic appearance is more suggestive of IPMN because of the diffuse dilated; however, we cannot rule out any ampullary lesions in that area. No obvious lesions noticed in the MRI evaluation. However, the MRI was slightly limited with the motion artifact. Clinically, this is not suggestive of pancreatic divisum, more suggestive of an IPMN type. However, there is limitation of the study because of the Billroth II gastrectomy. The reasonable approach for this patient is to manage conservatively. Thank you very much for allowing us to participate in the care of the patient. Dedrick Quintero MD cc: [id number] TT: 07/31/2016 20:59:48 Confirmation # [id number] Dictation # [id number] [facility]
== END 2016-07-31 20:15 | disposition home or self-care (01) | DRG 439 ==
LOC: ED 14:17 → ERH 16:04 → 3RNO 18:47
PROVIDERS: ADMIT Internal Medicine; ATTEND Internal Medicine
PROC: BF47ZZZ Ultrasonography of Pancreas (ICD-10-PCS; 2016-07-31)
PROC: 0DB68ZX Excision of Stomach, Via Natural or Artificial Opening Endoscopic, Diagnostic (ICD-10-PCS; principal; 2016-07-31 15:15)
PROC: BF4CZZZ Ultrasonography of Hepatobiliary System, All (ICD-10-PCS; 2016-07-31 15:15)
DX: K85.90 Acute pancreatitis without necrosis or infection, unspecified (principal); I13.0 Hypertensive heart and chronic kidney disease with heart failure and stage 1 through stage 4 chronic kidney disease, or unspecified chronic kidney disease; E11.22 Type 2 diabetes mellitus with diabetic chronic kidney disease; I50.9 Heart failure, unspecified; K83.8 Other specified diseases of biliary tract; E87.5 Hyperkalemia; T46.4X5A Adverse effect of angiotensin-converting-enzyme inhibitors, initial encounter; J44.9 Chronic obstructive pulmonary disease, unspecified; I25.10 Atherosclerotic heart disease of native coronary artery without angina pectoris; E21.3 Hyperparathyroidism, unspecified; N40.0 Benign prostatic hyperplasia without lower urinary tract symptoms; K86.1 Other chronic pancreatitis; N18.9 Chronic kidney disease, unspecified; K59.00 Constipation, unspecified; D18.03 Hemangioma of intra-abdominal structures; N28.1 Cyst of kidney, acquired; M19.90 Unspecified osteoarthritis, unspecified site; E78.00 Pure hypercholesterolemia, unspecified; K86.89 Other specified diseases of pancreas; Z90.49 Acquired absence of other specified parts of digestive tract; Z87.891 Personal history of nicotine dependence; Z90.3 Acquired absence of stomach [part of]; Z98.41 Cataract extraction status, right eye; Z98.42 Cataract extraction status, left eye

== ENCOUNTER 2016-08-12 14:10 | Observation (INO) | payer MEDICARE, OTHER ==
--- NOTE | 2016-08-12 14:40 | ED PDOC ---
Arrival/HPI - General Chief Complaint: Chest Pain Time Seen by Provider: 08/12/16 14:12 Historian: Patient - History of Present Illness Narrative History of Present Illness (Text): 08/12/16 14:34 A 89 year old male presents to the emergency department complaining of constant left sided chest pain since this morning approximately at 6:00. Patient describes the pain as a sharp sensation and denies any relieving or exacerbating factors. Patient denies any fever, chills, nausea, vomiting, diarrhea, abdominal pain, urinary symptoms, shortness of breath or any other complaints. PMD: Dr. Rickey Roth Time/Duration: Other (This morning at 06:00) Symptom Course: Unchanged Quality: Other Context: Other Past Medical History - Provider Review Nursing Documentation Reviewed: Yes - Infectious Disease Hx of Infectious Diseases: None - Tetanus Immunization Tetanus Immunization: Unknown - Cardiac Hx Cardiac Disorders: Yes Hx Hypertension: Yes - Pulmonary Hx Chronic Obstructive Pulmonary Disease (COPD): Yes - Neurological Hx Seizures: Yes - HEENT Hx Cataracts: Yes - Renal Hx Renal Failure: Yes - Endocrine/Metabolic Hx Diabetes Mellitus Type 2: Yes - Hematological/Oncological Hx Blood Transfusions: No Hx Blood Transfusion Reaction: No - Integumentary Hx Dermatological Disorder: No - Musculoskeletal/Rheumatological Hx Arthritis: Yes - Gastrointestinal Hx Pancreatitis: Yes - Genitourinary/Gynecological Hx Prostate Problems: Yes - Psychiatric Hx Psychophysiologic Disorder: No Hx Substance Use: No - Past Surgical History Past Surgical History: No Previous - Surgical History Hx Cholecystectomy: Yes - Anesthesia Hx Anesthesia Reactions: No Hx Malignant Hyperthermia: No - Suicidal Assessment Feels Threatened In Home Enviroment: No Family/Social History - Physician Review Nursing Documentation Reviewed: Yes Family/Social History: No Known Family HX Smoking Status: Former Smoker Hx Alcohol Use: No Hx Substance Use: No Hx Substance Use Treatment: No Allergies/Home Meds Allergies/Adverse Reactions: Allergies No Known Allergies Allergy (Verified 08/12/16 14:28) Review of Systems - Physician Review All systems were reviewed & negative as marked: Yes - Review of Systems Constitutional: absent: Fevers, Night Sweats Respiratory: absent: SOB Cardiovascular: Chest Pain Gastrointestinal: absent: Abdominal Pain, Diarrhea, Nausea, Vomiting Genitourinary Male: absent: Dysuria, Frequency, Hematuria, Urinary Output Changes Physical Exam - Physical Exam Narrative Physical Exam (Text): Constitutional: No acute distress. Elderly, thin male. Head: Normocephalic. Atraumatic. Eyes: PERRL. ENT: Moist mucous membranes. Neck: Supple. Cardiovascular: Regular rate. Chest: No tenderness. No reproducible chest tenderness. Respiratory: Clear to auscultation bilaterally. GI: Soft. Nontender. Nondistended. Back: No CVA tenderness. Musculoskeletal: No tenderness of extremities. Bilateral lower extremity pitting edema, left greater than right. Skin: No rash. Neurologic: Alert, no focal deficit. Vital Signs Reviewed: Yes Vital Signs Temp Pulse Resp BP Pulse Ox 08/12/16 16:30 79 16 144/79 100 08/12/16 14:13 97.9 F 60 16 143/89 100 Temperature: Afebrile Blood Pressure: Normal Pulse: Regular Respiratory Rate: Normal Appearance: Positive for: Well-Appearing, Non-Toxic, Comfortable Pain Distress: None Mental Status: Positive for: Alert and Oriented X 3 Finger Stick Blood Glucose: 120 Medical Decision Making ED Course and Treatment: 08/12/16 14:34 Impression: A 89 year old male with left sided chest pain. Patient denies any nausea, vomiting or shortness of breath. Bilateral pitting edema and no chest tenderness on exam. Plan: -- Chest xray -- Duplex lower extremity ultrasound -- Labs -- Aspirin -- Reassess and disposition Progress Notes: EKG shows NSR at [address]/T wave changes. Interpreted by me. 08/12/16 16:34 Doppler negative for DVT. 08/12/16 16:40 CXR no acute disease. Dr. Roth accepts patient to his service for tele observation. - Lab Interpretations Lab Results: 08/12/16 14:45 08/12/16 14:45 Lab Results 08/12/16 14:45: Amylase 408 H, Lipase 491 H 08/12/16 14:45: Sodium 134, Potassium 4.4, Chloride 105, Carbon Dioxide 21, Anion Gap 12, BUN 19, Creatinine 1.5 H, Est GFR ( Amer) 53, Est GFR (Non- Af Amer) 44, Random Glucose 88, Calcium 11.3 H, Total Bilirubin 0.5, AST 28, ALT 37, Alkaline Phosphatase 106, Total Creatine Kinase 112, Troponin I 0.01 D , Total Protein 7.2, Albumin 3.8, Globulin 3.5, Albumin/Globulin Ratio 1.1 08/12/16 14:45: PT 11.2, INR 1.04, APTT 21.0 L 08/12/16 14:45: WBC 3.2 L, RBC 3.98, Hgb 10.3 L, Hct 31.5 L, MCV 79.1 L, MCH 25.9, MCHC 32.7, RDW 18.6 H, Plt Count 278, MPV 9.6, Gran % 64.4, Lymph % (Auto ) 25.6, Christian % (Auto) 8.5 H, Eos % (Auto) 0.9 L, Baso % (Auto) 0.6, Gran # 2.03 , Lymph # 0.8 L, Christian # 0.3, Eos # 0.0, Baso # 0.02 I have reviewed the lab results: Yes - RAD Interpretation Radiology Orders: 08/12/16 14:34 CHEST ONE VIEW [RAD] Stat DUPLEX LOWER EXTRM VEIN BILAT [US] Stat - Medication Orders Current Medication Orders: Discontinued Medications Aspirin (Aspirin) 325 mg PO STAT STA Stop: 08/12/16 14:35 Last Admin: 08/12/16 14:40 Dose: 325 mg - Scribe Statement The provider has reviewed the documentation as recorded by the Priyank Bales Provider Scribe Attestation: All medical record entries made by the Chichiibabby were at my direction and personally dictated by me. I have reviewed the chart and agree that the record accurately reflects my personal performance of the history, physical exam, medical decision making, and the department course for this patient. I have also personally directed, reviewed, and agree with the discharge instructions and disposition. Disposition/Present on Arrival - Present on Arrival Any Indicators Present on Arrival: Yes History of DVT/PE: No History of Uncontrolled Diabetes: Yes Urinary Catheter: No History of Decub. Ulcer: No History Surgical Site Infection Following: None - Disposition Have Diagnosis and Disposition been Completed?: Yes Diagnosis: Chest pain Disposition: HOSPITALIZED Disposition Time: 16:40 Patient Plan: Observation, Telemetry Condition: FAIR
[2016-08-12 15:09] LABS: ADD MANUAL DIFF? NO
[2016-08-12 15:13] LABS: BASO # 0.02 K/mm3 (0.0-2.0); BASO % 0.6 % (0.0-3.0); EOS % 0.9 % (1.5-5.0); GRAN # 2.03 (1.4-6.5); GRAN % 64.4 % (50.0-68.0); HEMATOCRIT 31.5 % (42.0-52.0); LYMPH # 0.8 (1.2-3.4); LYMPH % 25.6 % (22.0-35.0); MEAN CELL VOLUME 79.1 fL (80.0-105.0); MEAN CORPUSCULAR HEMOGLOBIN 25.9 pg (25.0-35.0); MEAN CORPUSCULAR HGB CONC 32.7 g/dl (31.0-37.0); MEAN PLATELET VOLUME 9.6 fl (7.0-11.0); MONO # 0.3 (0.1-0.6); MONO % 8.5 % (1.0-6.0); PLATELET COUNT 278 10^3/uL (120.0-450.0); RED CELL DISTRIBUTION WIDTH 18.6 % (11.5-14.5); WHITE BLOOD COUNT 3.2 10^3/ul (4.5-11.0)
[2016-08-12 15:44] LABS: INR 1.04 (0.93-1.08)
[2016-08-12 16:07] LABS: ALB/GLOB RATIO 1.1 (1.1-1.8); BILIRUBIN,TOTAL 0.5 mg/dL (0.2-1.3); CALCIUM 11.3 mg/dL (8.4-10.5); TOTAL PROTEIN 7.2 g/dL (5.8-8.3)
[2016-08-12 16:14] LABS: POTASSIUM 4.4 mmol/L (3.6-5.0)
[2016-08-12 16:19] LABS: TROPONIN I 0.01 ng/mL
--- NOTE | 2016-08-12 17:23 | RAD ---
PROCEDURE: CHEST RADIOGRAPH, 1 VIEW HISTORY: chest pain COMPARISON: 07/25/2016 FINDINGS: LUNGS: Clear. PLEURA: No pneumothorax or pleural fluid seen. CARDIOVASCULAR: Normal. OSSEOUS STRUCTURES: No significant abnormalities. VISUALIZED UPPER ABDOMEN: Normal. OTHER FINDINGS: None. IMPRESSION: No active disease.
[2016-08-12 17:35] LABS: AMYLASE 408 U/L (35-125); LIPASE 491 U/L (23-300)
[2016-08-12 18:13] VITALS: BMI 19.5
[2016-08-12] MEDS ORDERED: Pneumococcal 23-Valent Vaccine IM ONE (18:14)
--- NOTE | 2016-08-13 13:30 | US ---
HISTORY: Leg pain and swelling. Evaluate for DVT PHYSICIAN(S): Dustin Matute MD. TECHNIQUE: Duplex sonography and color-flow Doppler with graded compression were used to evaluate the deep venous systems of both lower extremities. FINDINGS: The visualized deep venous systems of both lower extremities are sonographically normal and compressible. Normal wave forms and augmentation are seen. There is no sonographic evidence for deep venous thrombosis in the visualized segments of both lower extremities. IMPRESSION: No sonographic evidence for deep venous thrombosis in the visualized segments of both lower extremities.
--- NOTE | 2016-08-13 15:56 | HP ---
HISTORY OF PRESENT ILLNESS: The patient is an 89-year-old male who presents to the Emergency Room co mplaining of epigastric and substernal chest discomfort of 1-2 days' duration. There is no nausea, n o vomiting, no diaphoresis, no fever, no chills. The patient has had recurrent admissions for pancre atitis and was found to have an elevated amylase of 408 and lipase of 491, and is admitted for [facility] evaluation and treatment. 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 PAST SURGICAL HISTORY: Includes benign prostatic hypertrophy. CURRENT MEDICATIONS: Include finasteride 5 mg daily, Imdur 30 mg daily, Protonix 40 mg daily, MiraLa x p.r.n. ALLERGIES: The patient has no known drug allergies. SOCIAL HISTORY: The patient lives alone. He is independent with ADLs. Needs some assistance with I ADLs. He has a greater than [id number] history of tobacco use. There is no history of alcohol use . REVIEW OF SYSTEMS: Essentially negative other than above. The patient has no jaundice, no diarrhea, no melena, no bright red blood per rectum, no rash. PHYSICAL EXAMINATION: GENERAL: The patient is a somewhat cachectic male, in no acute distress. VITAL SIGNS: Blood pressure 148/85, temperature 97.9, pulse 69, respiratory rate 20. HEENT: Head is normocephalic, atraumatic. Pupils equal, round and reactive to light. Extraocular m ovements intact. NECK: Supple, with no thyromegaly, no carotid bruit. LUNGS: Clear. HEART: Regular rate and rhythm. ABDOMEN: Soft with mild epigastric tenderness to palpation with no guarding, no rebound. Bowel soun ds are normoactive. EXTREMITIES: Without cyanosis or edema. There is some clubbing of the fingernails. There is genera lized muscular wasting and atrophy of all 4 extremities bilaterally, which is mild to moderate. NEUROLOGIC: The patient is awake and oriented x 3 without focal, sensory or motor deficits. SKIN: Warm and dry. LABORATORY DATA: WBCs 3.2, hemoglobin 10.3, hematocrit 31.5, platelets 278. Sodium 134, potassium 4 .4, chloride 105, CO2 21, BUN 19, creatinine 1.5, glucose 88, calcium level is 11.3, amylase is 408, lipase is 491. IMPRESSION: 1. 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 2. Hypercalcemia, probable hyperparathyroidism, secondary to vitamin D deficiency. 3. Chronic obstructive pulmonary disease. 4. Hypertension. 5. Coronary artery disease. 6. Benign prostatic hypertrophy. PLAN: The patient is admitted to the telemetry unit. Troponin is negative at less than 0.01. We wi ll start IV fluids, clear liquid diet. Obtain GI consult with Dr. Quintero. Start vitamin D supplem entation, monitor calcium levels and amylase, lipase and electrolytes. Rickey Roth JD, MD cc: [id number] TT: 08/13/2016 15:55:37 en
[2016-08-13] MEDS ORDERED: POLYETHYLENE GLYCOL 3350 17 GM/Dose PACKET PO ONE (20:27)
--- NOTE | 2016-08-13 23:38 | CON ---
DATE: 08/13/2016 REASON FOR CONSULTATION: Pancreatitis. HISTORY OF PRESENT ILLNESS: This 89-year-old patient was recently in the hospital with the pancreatitis, discharged home. Was readmitted, presented to the Emergency Room again with complaining of left-sided chest pain and also some mild epigastric discomfort. The patient was found to have elevated liver enzymes, elevated pancreatic enzymes. GI consult was requested to further evaluate. The patient was recently in the hospital. At that time, patient did have an extensive workup done including MRI, CT and also endoscopic ultrasound done. The CAT scan done initially was unremarkable. Status post cholecystectomy. The patient did have an MRCP done on 07/26/2016. At that time, the MRCP show mildly dilated common bile duct, probably thought to be secondary to the previous cholecystectomy and also the questionable dilated pancreatic duct, suspected pancreatic divisum. The patient was also found to have a dilated pancreatic duct. Underwent an EGD on 08/02. It reported gastrectomy with diffuse gastritis, esophagus was normal. Pancreatic duct appeared to be dilated. The body was also mildly prominent. The head of the pancreas could not be optimally visualized because of the partial gastrectomy. The patient was tolerating diet and was discharged home. The patient was doing well until he had another episode atypical chest pain, epigastric pain and chest pain. The patient came back to the Emergency Room. PAST MEDICAL HISTORY: Other past medical history positive as above. COPD, dyslipidemia, type 2 diabetes. ALLERGIES: No known drug allergies. SOCIAL HISTORY: History of smoking before. Denies alcohol use. REVIEW OF SYSTEMS: Positive as above. Other systems reviewed and negative. PHYSICAL EXAMINATION: GENERAL: The patient is lying on the bed, not in acute distress. VITAL SIGNS: Pulse 69, temperature is 97.7, blood pressure 148/85, respirations 20. HEENT: Atraumatic, anicteric. NECK: Supple. HEART: S1, S2 heard. LUNGS: Bilateral air entry present. ABDOMEN: Soft. There is a mild tenderness in the epigastric area EXTREMITIES: No edema. No cyanosis. LABORATORY DATA: Hemoglobin 10.3, hematocrit 31.5, WBC 3.2, platelets 278. Chemistry: LFTs essentially unremarkable. Creatinine 1.5. The patient's calcium is elevated to 11.3. Amylase 408. Lipase is 491. IMPRESSION: This 89-year-old patient with status post Billroth II gastrectomy, recent hospitalization. Was admitted again with complaints of epigastric and left-sided chest pain, appeared to have mildly elevated pancreatic enzymes. The EUS suggested possible divisum but however, the CAT scan suggested possible ____; however, the ____ did not mention ____. Lipase level was 491. Amylase 408. This 89-year-old patient now with Billroth II gastrectomy, admitted with abdominal pain, atypical chest pain, appeared to have elevated pancreatic enzymes. Questionable divisum, dilated common pancreatic duct. The differential diagnosis intraductal papillary mucinous neoplasm also. The patient had hypercalcemia. Other comorbidities including chronic obstructive pulmonary disease, hypertension, prostate hypertrophy, chronic kidney disease. Would recommend: 1. The patient does have status post Billroth II gastrectomy. The differential diagnosis of pancreatitis should include intraductal papillary mucinous neoplasm. Pancreatic neoplasm also should be considered though it is not obvious in the previous imaging study clearly, but the EUS was limited because of the Billroth II gastrectomy and patient's kidney function is chronic kidney disease. Creatinine was 1.4. We will defer doing a pancreatic protocol CT for him at the present time. The patient's hyperkalemia also partially could contribute to the pancreatitis. We will continue to closely follow up her care and suggest further management based on the clinical course. We will continue to closely follow up his care and suggest further management based on the clinical course. Dedrick Quintero MD cc: [id number] TT: 08/13/2016 17:27:17 Confirmation # [id number] Dictation # [id number] BAKER
--- NOTE | 2016-08-14 01:40 | CARD ---
APPROVED REPORT EKG Measurement Heart [id number] IN [id number] [id number] <Conclusion> Normal sinus rhythm Normal ECG
--- NOTE | 2016-08-14 12:07 | PN ---
DATE: 08/14/2016 SUBJECTIVE: The patient is lying in bed in no acute distress. He complains of some abdominal discom fort, decreased from previous. There is no nausea, no vomiting, no diarrhea, no jaundice. OBJECTIVE: VITAL SIGNS: Blood pressure 134/70, temperature 97.9, pulse 71, respiratory rate 20. LUNGS: Clear. HEART: Regular rate and rhythm. ABDOMEN: Soft. There is mild epigastric tenderness to palpation with no guarding, no rebound. Rui l sounds are normoactive. EXTREMITIES: Without cyanosis or edema. NEUROLOGIC: The patient is awake and oriented x 3 without focal sensory or motor deficits. SKIN: Warm and dry. IMPRESSION: 1. 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 2. Hypercalcemia, probably secondary to hyperparathyroidism due to vitamin D deficiency. Rule out o ccult malignancy. 3. Chronic obstructive pulmonary disease. 4. Hypertension. 5. Coronary artery disease. 6. Benign prostatic hypertrophy. PLAN: Continue IV fluids, liquid diet, GI followup with Dr. Quintero, vitamin D supplementation. Mo nitor electrolytes and calcium levels and lipase. Social work for discharge planning. Rickey Roth JD, MD cc: [id number] TT: 08/14/2016 11:41:46 Confirmation # [id number] Dictation # [id number] mn
--- NOTE | 2016-08-14 12:17 | PN ---
DATE: 08/14/2016 Seen and examined at the bedside earlier this morning. Denies any nausea, vomiting. Not much abdomi nal pain. No reports of acute overnight events. VITAL SIGNS: Temperature is 97.9, blood pressure 134/76, pulse 71, respirations 20, 100% on room air . LABORATORY DATA: No new labs are noted for today. PHYSICAL EXAMINATION: HEENT: Sclerae are anicteric. NECK: Supple. CARDIAC: S1, S2. CHEST: Lung sounds are clear. ABDOMEN: With bowel sounds. Soft. Mild epigastric tenderness. No rebound or guarding. EXTREMITIES: No edema. NEUROLOGIC: Awake, alert, and oriented. ASSESSMENT: An 89-year-old male with history of Billroth II gastrectomy admitted with epigastric dis comfort and left-sided chest pain. The patient is noted to have elevated pancreatic enzymes, history of pancreatitis in the past. He did have status post esophagogastroduodenoscopy/endoscopic ultrasou nd a few weeks ago and head of the pancreas could not be optimally visualized because of the partial gastrectomy. Questionable divisum with dilated pancreatic duct. Differential diagnosis intraductal papillary mucinous neoplasm. History of hypertension, chronic kidney disease, and chronic obstructiv e pulmonary disease. The patient also with hypercalcemia. PLAN: We will request for CMP this morning and lipase. Currently on clear liquids. May consider ad vancing the diet to low fat puree. Will check after the labs. The patient is on IV fluids with pota ssium at 70 mL an hour. Consider repeating CAT scan with thin sections of the pancreas. The patient was seen and case discussed with Dr. Quintero. Nancy CASTANON cc: [id number] TT: 08/14/2016 12:16:25 Confirmation # [id number] Dictation # [id number] mn
[2016-08-14 12:42] LABS: ALKALINE PHOSPHATASE 89 U/L (38-133); ALT/SGPT 34 U/L (7-56); AST/SGOT 21 U/L (15-59); BILIRUBIN,TOTAL 0.4 mg/dL (0.2-1.3); BLOOD UREA NITROGEN 11 mg/dL (7-21); CALCIUM 10.5 mg/dL (8.4-10.5); CARBON DIOXIDE 26 mmol/L (21-33); CHLORIDE 104 mmol/L (95-110); GFR AFRICAN-AMERICAN > 60; GLUCOSE,RANDOM 84 mg/dL (70-110); LIPASE 207 U/L (23-300); POTASSIUM 5.1 mmol/L (3.6-5.0); SODIUM 135 mmol/L (132-148); TOTAL PROTEIN 5.9 g/dL (5.8-8.3)
[2016-08-14] MEDS: POLYETHYLENE GLYCOL 3350 17 GM/Dose PACKET PO SCH (17:13)
--- NOTE | 2016-08-15 00:32 | PN ---
DATE: 08/14/2016 SUBJECTIVE: This patient was seen and evaluated earlier today. LABORATORY DATA: Imaging studies were all reviewed with Dr. Menard, radiologist. The patient does h ave mild tenderness on deep palpation in the epigastric area. LFTs showing a downward trend. The pa tient does have dilated pancreatic duct. The limited study of the pancreatic head was limited becaus e of the gas buildup due to gastric surgery. PLAN: The reasonable thing is now to consider repeating the CT with oral contrast. The patient does have chronic kidney disease. Dedrick Quintero MD cc: [id number] TT: 08/15/2016 00:31:31 Confirmation # [id number] Dictation # [id number] mn
[2016-08-15 07:41] LABS: ADD MANUAL DIFF? NO
[2016-08-15 07:44] LABS: BASO # 0.02 K/mm3 (0.0-2.0); BASO % 0.7 % (0.0-3.0); EOS # 0.1 (0.0-0.7); EOS % 2.4 % (1.5-5.0); GRAN % 47.1 % (50.0-68.0); HEMATOCRIT 36.9 % (42.0-52.0); LYMPH # 1.1 (1.2-3.4); LYMPH % 35.7 % (22.0-35.0); MEAN CELL VOLUME 78.8 fL (80.0-105.0); MEAN CORPUSCULAR HEMOGLOBIN 25.4 pg (25.0-35.0); MEAN CORPUSCULAR HGB CONC 32.2 g/dl (31.0-37.0); MEAN PLATELET VOLUME 9.6 fl (7.0-11.0); MONO # 0.4 (0.1-0.6); MONO % 14.1 % (1.0-6.0); PLATELET COUNT 285 10^3/uL (120.0-450.0); RED CELL DISTRIBUTION WIDTH 18.3 % (11.5-14.5)
[2016-08-15 07:54] LABS: ALKALINE PHOSPHATASE 91 U/L (38-133); ALT/SGPT 31 U/L (7-56); AST/SGOT 24 U/L (15-59); BILIRUBIN,TOTAL 0.6 mg/dL (0.2-1.3); BLOOD UREA NITROGEN 10 mg/dL (7-21); CALCIUM 10.3 mg/dL (8.4-10.5); CARBON DIOXIDE 22 mmol/L (21-33); CHLORIDE 106 mmol/L (95-110); GFR AFRICAN-AMERICAN > 60; GLUCOSE,RANDOM 72 mg/dL (70-110); LIPASE 246 U/L (23-300); POTASSIUM 4.8 mmol/L (3.6-5.0); SODIUM 132 mmol/L (132-148)
[2016-08-15 08:16] VITALS: RESP 20
[2016-08-15] MEDS: POLYETHYLENE GLYCOL 3350 17 GM/Dose PACKET PO SCH ×2 (09:36→17:46)
--- NOTE | 2016-08-15 13:05 | PN ---
DATE: 08/15/2016 Seen and examined at the bedside this afternoon. He is tolerating his diet. No nausea, vomiting. Denies abdominal pain. He reported having a bowel movement. No reports of any bleeding that he is aware of. VITAL SIGNS: Temperature is 97.8, blood pressure 141/85, pulse 58, respirations 20, 97% room air. LABORATORIES: WBC is 3.0, H and H is 11.9 and 36.9, platelets of 285. Sodium 132, K 4.8, BUN is 10, creatinine is 1.1. LFTs are within normal limits. Lipase is 246. PHYSICAL EXAMINATION: HEENT: Sclera is anicteric. NECK: Supple. CARDIAC: S1, S2. LUNG SOUNDS: Clear. ABDOMEN: With bowel sounds, soft, not tender. No rebound, guarding. ASSESSMENT: An 89-year-old with history of Billroth II gastrectomy, came with epigastric discomfort and left-sided chest pain. This is improved. No more abdominal pain. He does have history of pancreatitis in the past, underwent an endoscopic ultrasound and head of the pancreas could not be optimally visualized secondary to partial gastrectomy, question of divisum with dilated pancreatic duct. Also, consider intraductal papillary mucinous neoplasm. The patient also with hypercalcemia, chronic obstructive pulmonary disease, hypertension. PLAN: Continue low fat pureed diet. He is on stool softeners, on MiraLax. Monitor for any diarrhea. May repeat radiological studies with a CT scan with oral contrast. The patient was seen and case discussed with Dr. Quintero. Nancy CASTANON cc: 451 TT: 08/15/2016 13:05:27 Confirmation # [id number] Dictation # [id number] MTDD
--- NOTE | 2016-08-15 14:58 | PN ---
DATE: 08/15/2016 SUBJECTIVE: The patient is lying in bed in no acute distress. He denies abdominal pain. There is n o nausea, no vomiting, no diarrhea. PHYSICAL EXAMINATION: VITAL SIGNS: Blood pressure 141/85, temperature 97.8, pulse 58, respiratory rate 20. LUNGS: Clear. HEART: Regular rate and rhythm. ABDOMEN: Soft, nontender. Bowel sounds are normoactive. EXTREMITIES: Without cyanosis or edema. NEUROLOGIC: The patient is awake and oriented x 3 without focal sensory or motor deficits. SKIN: Warm and dry. LABORATORY DATA: WBC is 3.0, hemoglobin 11.9, hematocrit 36.9. Sodium 132, potassium 4.8, chloride 106, CO2 of 22, BUN 10, creatinine 1.1, glucose 72. Calcium is 10.3, lipase 246. IMPRESSION: 1. 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 2. Hypercalcemia secondary to hyperparathyroidism from vitamin D deficiency, improved. 3. Chronic obstructive pulmonary disease. 4. Hypertension. 5. Coronary artery disease. 6. Benign prostatic hypertrophy. PLAN: Continue IV fluids, advance diet as tolerated. GI followup with Dr. Quintero, vitamin D suppl ementation. Monitor electrolytes, calcium levels, and lipase. Social work for discharge planning. Rickey Roth JD, MD cc: [id number] TT: 08/15/2016 14:57:30 Confirmation # [id number] Dictation # [id number]
[2016-08-15 17:47] VITALS: O2SAT 98
--- NOTE | 2016-08-16 08:46 | PN ---
DATE: 08/15/2016 ADDENDUM This patient was seen and evaluated earlier today. This is an addendum to the GI progress report dictated by Nancy Harrison NP. The patient admitted with recurrent pancreatitis. 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 Duct was close to 6 mm dilated. The concern is the head of the pancreas could not be optimally visualized. The patient's previous MRI and CAT scans were reviewed with the radiologist, Dr. Menard. PHYSICAL EXAMINATION: GENERAL: The patient is feeling better, discomfort has significantly improved. The reasonable thing at this point is to do a repeat CT with oral contrast. We are concerned about getting IV contrast in view of the patient's renal function. Even though patient's BUN and creatinine are normal, his initial creatinine was 1.5 when he came in. We will discuss with Dr. Roth regarding the CAT scan with pancreatic protocol IV and then we can consider his IV hydration. That is one option to get a pancreatic protocol CT to further evaluate the pancreas. The patient would also benefit from tertiary care evaluation. Meanwhile, we will continue the IV hydration. Thank you very much for allowing us to participate in the care of the patient. Dedrick Quintero MD cc: [id number] TT: 08/16/2016 08:45:23 Confirmation # [id number] Dictation # [id number] en MTDD
[2016-08-16 09:10] VITALS: BP 140/79; PULSE 59; TEMP 98
[2016-08-16] MEDS: POLYETHYLENE GLYCOL 3350 17 GM/Dose PACKET PO SCH (09:28)
--- NOTE | 2016-08-16 10:47 | PN ---
DATE: 08/16/2016 Seen and examined at the bedside this morning. Tolerating oral intake. He did complain of some disc omfort in the epigastric area this morning. No acute distress. Denies any fever, chills. No shortn ess of breath or chest pains. VITAL SIGNS: Temperature is 98, his blood pressure is 140/79, pulse rate 59, respirations 20, 98% on room air. No new labs are noted for today. PHYSICAL EXAMINATION: HEENT: Sclera is anicteric. NECK: Supple. CARDIAC: S1, S2. LUNG SOUNDS: With decreased breath sounds, but good air entry, no rales or wheeze. ABDOMEN: With bowel sounds, soft, positive epigastric tenderness. No rebound, guarding, or organome mt. EXTREMITIES: No edema. ASSESSMENT: Recurrent pancreatitis, history of Billroth II gastric surgery. The patient has a dilat ed pancreatic body and duct, history of chronic obstructive pulmonary disease, hypertension, hypercal cemia. PLAN: Detailed discussion with patient regarding repeating CT scan of abdomen and pelvis with pancre at protocol and getting evaluated at [facility]. The patient was unsure regarding transportation t o [facility]. We did discuss that it may be reasonable to repeat the CT scan with pancreatic protoco l since his renal functions are within normal limits. He is currently receiving IV hydration. We wo uld recommend to continue that if CT scan is going to be done, if Dr. Roth is agreeable. The patient was seen and case discussed with Dr. Quintero. Nancy CASTANON cc: [id number] TT: 08/16/2016 10:46:20 Confirmation # [id number] Dictation # [id number] en
--- NOTE | 2016-08-16 13:03 | DS ---
HOSPITAL COURSE: The patient is an 89-year-old male admitted through the Emergency Department on 07/25 with abdominal pain, found to have an elevated amylase and lipase consistent with recurrent pa ncreatitis. The patient was placed on clear liquids and given IV fluids with improvement of his symp toms. The patient at the present time denies any abdominal pain. There is no nausea, no vomiting, n o diarrhea, no jaundice, no melena, no bright red blood per rectum. The patient is medically stable for discharge. The patient was seen in consultation by GI, Dr. Quintero. It was felt that due to e patient's anatomy, status post Billroth surgery in the remote past, that an EGD and possible cholan giography would not be possible and the patient will be referred to a tertiary care center for contin ued evaluation. PHYSICAL EXAMINATION: VITAL SIGNS: Blood pressure 140/79, pulse 59, temperature 98, respiratory rate 20. LUNGS: Clear. HEART: Regular rate and rhythm. ABDOMEN: Soft, nontender, bowel sounds are normoactive. EXTREMITIES: Without cyanosis, clubbing, or edema. NEUROLOGIC: The patient is awake and oriented x 3 without focal sensory or motor deficits. SKIN: Warm and dry. IMPRESSION: 1. 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 2. Hypercalcemia secondary to hyperparathyroidism from vitamin D deficiency, improved. 3. Chronic obstructive pulmonary disease. 4. Hypertension. 5. Coronary artery disease. 6. Benign prostatic hypertrophy. PLAN: The patient will be discharged to home in stable condition on the following medications: Finas teride 5 mg daily and ranitidine 150 mg daily. He will be maintained on a heart-healthy diet, activi ties ad libitum. He will be seen in the office within the next 1-2 weeks and will be followed as an outpatient by [facility], Dr. Quintero, for referral to a tertiary care center that can perform possible ramirez scutaneous endoscopy and cholangiography. Rickey Roth JD, MD cc: [id number] TT: 08/16/2016 13:03:00 marce
== END 2016-08-16 17:41 | disposition home health service (06) ==
LOC: ED 14:10 → ERH 16:46 → 2RSO 18:56 → INTOOBSV 08-14 11:32 → OBSVTOIN 08-14 11:32 → 5RSO 08-14 17:03
PROVIDERS: ADMIT Internal Medicine; ATTEND Internal Medicine
DX: K86.1 Other chronic pancreatitis (principal); K86.89 Other specified diseases of pancreas; I12.9 Hypertensive chronic kidney disease with stage 1 through stage 4 chronic kidney disease, or unspecified chronic kidney disease; E11.22 Type 2 diabetes mellitus with diabetic chronic kidney disease; N18.9 Chronic kidney disease, unspecified; E87.5 Hyperkalemia; J44.9 Chronic obstructive pulmonary disease, unspecified; E21.1 Secondary hyperparathyroidism, not elsewhere classified; E55.9 Vitamin D deficiency, unspecified; I25.10 Atherosclerotic heart disease of native coronary artery without angina pectoris; N40.0 Benign prostatic hyperplasia without lower urinary tract symptoms; E78.00 Pure hypercholesterolemia, unspecified; M19.90 Unspecified osteoarthritis, unspecified site; F17.210 Nicotine dependence, cigarettes, uncomplicated; Z90.3 Acquired absence of stomach [part of]
CPT/HCPCS: 36415; 71010; 80053; 82150; 82550; 82948; 83690; 84484; 85025; 85610; 85730; 93005; 93970; 99285; G0378; J7040

== ENCOUNTER 2016-08-18 11:46 | Inpatient (IN) | payer MEDICARE, OTHER ==
[2016-08-18 11:55] VITALS: BMI 16.0
--- NOTE | 2016-08-18 12:44 | ED PDOC ---
Arrival/HPI - General Chief Complaint: Altered Mental Status Time Seen by Provider: 08/18/16 12:19 Historian: EMS - History of Present Illness Narrative History of Present Illness (Text): 08/18/16 12:41 89 year old male presents to the emergency department for hypoglycemia as per EMS prior to arrival. EMS states they were called for altered mental status and patient was found with blood sugar of 30. Patient was given oral glucose and arrived in the ED with blood sugar of 120. Currently patient denies any complaints. Time/Duration: Prior to Arrival Symptom Onset: Sudden Symptom Course: Unchanged Context: Home Associated Symptoms (Text): None Past Medical History - Provider Review Nursing Documentation Reviewed: Yes - Infectious Disease Hx of Infectious Diseases: None - Tetanus Immunization Tetanus Immunization: Unknown - Cardiac Hx Cardiac Disorders: Yes (chest pain/cad) Hx Hypertension: Yes Hx Peripheral Edema: Yes (ble and feet) - Pulmonary Hx Asthma: Yes Hx Bronchitis: Yes Hx Chronic Obstructive Pulmonary Disease (COPD): Yes - Neurological Hx Seizures: Yes - HEENT Hx HEENT Disorder: Yes (eyeglases) Hx Cataracts: Yes (r eye sx) - Renal Hx Renal Disorder: Yes (retention) Hx Renal Failure: Yes - Endocrine/Metabolic Hx Diabetes Mellitus Type 2: Yes - Hematological/Oncological Hx Anemia: Yes Hx Hepatitis C: Yes - Integumentary Hx Dermatological Disorder: Yes - Musculoskeletal/Rheumatological Hx Falls: No - Gastrointestinal Hx Gastrointestinal Disorders: Yes (gi bleed) Hx Gastroesophageal Reflux: Yes Hx Pancreatitis: Yes - Genitourinary/Gynecological Hx Prostate Problems: Yes - Psychiatric Hx Psychophysiologic Disorder: No Hx Substance Use: No - Past Surgical History Past Surgical History: No Previous - Surgical History Hx Cholecystectomy: Yes - Anesthesia Hx Anesthesia Reactions: No Hx Malignant Hyperthermia: No - Suicidal Assessment Feels Threatened In Home Enviroment: No Family/Social History - Physician Review Nursing Documentation Reviewed: Yes Family/Social History: Unknown Family HX Smoking Status: Former Smoker Hx Alcohol Use: No Hx Substance Use: No Hx Substance Use Treatment: No Allergies/Home Meds Allergies/Adverse Reactions: Allergies No Known Allergies Allergy (Verified 08/12/16 14:28) Review of Systems - Physician Review All systems were reviewed & negative as marked: Yes - Review of Systems Respiratory: absent: SOB Cardiovascular: absent: Chest Pain Gastrointestinal: absent: Abdominal Pain Physical Exam - Physical Exam Narrative Physical Exam (Text): Constitutional: No acute distress. Head: Normocephalic. Atraumatic. Eyes: PERRL. ENT: Moist mucous membranes. Neck: Supple. Cardiovascular: Regular rate. Chest: No tenderness. Respiratory: Clear to auscultation bilaterally. GI: Soft. Nontender. Nondistended. Back: No CVA tenderness. Musculoskeletal: No tenderness or swelling of extremities. Skin: No rash. Neurologic: Alert, no focal deficit. Oriented x 3. Vital Signs Reviewed: Yes Vital Signs Temp Pulse Resp BP 08/18/16 15:19 97.6 F 74 08/18/16 12:03 93.2 F L 76 16 137/81 Temperature: Hypothermic Blood Pressure: Normal Pulse: Regular Respiratory Rate: Normal Appearance: Positive for: Non-Toxic, Comfortable, Other (Elderly thin gentleman) Pain Distress: None Mental Status: Positive for: Alert and Oriented X 3 Finger Stick Blood Glucose: 126 Medical Decision Making ED Course and Treatment: Impression: 89 year old male presents to the emergency department for hypoglycemia as per EMS prior to arrival. Differential Diagnosis included but are not limited to: Plan: -- Chest X-ray -- Labs -- Reassess and disposition Prior Visits: Notes and results from previous visits were reviewed. Patient last seen in the ED on 08/14/16 for chest pain and admitted for chest pain. Progress Notes: EKG shows sinus rhythm at [address] elevations or depressions. Poor baseline. Interpreted by me. Chest X-ray Account General Manager: Catarino Washburn MD IMPRESSION: No active disease Patient rewarmed with bairhugger, with improvement of temperature. Patient with bicarb of 18, sodium 130, hypoglycemia without known cause. Dr. Roth accepts patient to his service for further evaluation, hydration. - Lab Interpretations Lab Results: 08/18/16 12:30 08/18/16 12:30 Lab Results 08/18/16 13:20: Urine Color Yellow, Urine Appearance Clear, Urine pH 6.0, Ur Specific [place] 1.020, Urine Protein 30 H, Urine Glucose (UA) Negative, Urine Ketones Trace H, Urine Blood Moderate H, Urine Nitrate Negative, Urine Bilirubin Negative, Urine Urobilinogen 0.2, Ur Leukocyte Esterase Negative, Urine RBC 0 - 2, Urine WBC 0 - 2, Urine Bacteria Small 08/18/16 12:30: Sodium 130 L, Potassium 4.0, Chloride 101, Carbon Dioxide 18 L, Anion Gap 15, BUN 35 H, Creatinine 1.4, Est GFR ( Amer) 58, Est GFR (Non- Af Amer) 48, Random Glucose 110, Calcium 10.7 H, Total Bilirubin 0.8, AST 385 H , ALT 116 H, Alkaline Phosphatase 100, Total Protein 5.9, Albumin 3.0, Globulin 2.8, Albumin/Globulin Ratio 1.1, Lipase 15 L 08/18/16 12:30: WBC 4.6 D, RBC 4.08, Hgb 10.5 L, Hct 30.8 L, MCV 75.5 L, MCH 25.7, MCHC 34.1, RDW 17.3 H, Plt Count 253, MPV 9.5, Gran % 86.7 H, Lymph % ( Auto) 6.3 L, [place] % (Auto) 7.0 H, Eos % (Auto) 0.0 L, Baso % (Auto) 0.0, Gran # 3.98, Lymph # 0.3 L, [place] # 0.3, Eos # 0.0, Baso # 0.00 - RAD Interpretation Radiology Orders: 08/18/16 12:41 CHEST PORTABLE [RAD] Stat Hall Manager: Radiologist - Scribe Statement The provider has reviewed the documentation as recorded by the Priyank Au Provider Scribe Attestation: All medical record entries made by the Scribe were at my direction and personally dictated by me. I have reviewed the chart and agree that the record accurately reflects my personal performance of the history, physical exam, medical decision making, and the department course for this patient. I have also personally directed, reviewed, and agree with the discharge instructions and disposition. Disposition/Present on Arrival - Present on Arrival Any Indicators Present on Arrival: No History of DVT/PE: No History of Uncontrolled Diabetes: No Urinary Catheter: No History of Decub. Ulcer: No History Surgical Site Infection Following: None - Disposition Have Diagnosis and Disposition been Completed?: Yes Diagnosis: Hypoglycemia, Failure to thrive Disposition: HOSPITALIZED Disposition Time: 14:40 Patient Plan: Admission Condition: GUARDED Referrals: [facility], [Primary Care Provider] - Follow up with primary
[2016-08-18 12:47] LABS: ADD MANUAL DIFF? NO
[2016-08-18 12:50] LABS: GRAN # 3.98 (1.4-6.5); GRAN % 86.7 % (50.0-68.0); HEMATOCRIT 30.8 % (42.0-52.0); LYMPH # 0.3 (1.2-3.4); LYMPH % 6.3 % (22.0-35.0); MEAN CELL VOLUME 75.5 fL (80.0-105.0); MEAN CORPUSCULAR HEMOGLOBIN 25.7 pg (25.0-35.0); MEAN CORPUSCULAR HGB CONC 34.1 g/dl (31.0-37.0); MEAN PLATELET VOLUME 9.5 fl (7.0-11.0); MONO # 0.3 (0.1-0.6); PLATELET COUNT 253 10^3/uL (120.0-450.0); RED CELL DISTRIBUTION WIDTH 17.3 % (11.5-14.5); WHITE BLOOD COUNT 4.6 10^3/ul (4.5-11.0)
[2016-08-18 13:00] LABS: ALB/GLOB RATIO 1.1 (1.1-1.8); BILIRUBIN,TOTAL 0.8 mg/dL (0.2-1.3); CALCIUM 10.7 mg/dL (8.4-10.5); TOTAL PROTEIN 5.9 g/dL (5.8-8.3)
--- NOTE | 2016-08-18 13:19 | RAD ---
HISTORY: hypoglycemia COMPARISON: 08/12/2016 FINDINGS: LUNGS: No active pulmonary disease. PLEURA: No significant pleural effusion identified, no pneumothorax apparent. CARDIOVASCULAR: Normal. OSSEOUS STRUCTURES: No significant abnormalities. VISUALIZED UPPER ABDOMEN: Normal. OTHER FINDINGS: None. IMPRESSION: No active disease.
[2016-08-18 13:32] LABS: URINE BILIRUBIN NEGATIVE (NEGATIVE); URINE BLOOD MODERATE (NEGATIVE); URINE GLUCOSE (UA) NEGATIVE (NEGATIVE); URINE KETONE TRACE mg/dL (NEGATIVE); URINE LEUKOCYTE ESTERASE NEGATIVE Leu/uL (NEGATIVE); URINE PROTEIN 30 mg/dL (<30 mg/dL); URINE UROBILINOGEN 0.2 E.U./dL (<1 E.U./dL)
[2016-08-18 13:38] LABS: URINE APPEARANCE CLEAR (CLEAR); URINE COLOR YELLOW (YELLOW)
[2016-08-18 13:46] LABS: URINE BACTERIA SMALL (NEG); URINE RBC 0 - 2 /hpf (0-2); URINE WBC 0 - 2 /hpf (0-6)
--- NOTE | 2016-08-18 15:13 | CARD ---
APPROVED REPORT EKG Measurement Heart [id number] <Conclusion> NSR, base line artefact. Pl repeat ECG
[2016-08-18 19:20] LABS: TROPONIN I 0.05 ng/mL
--- NOTE | 2016-08-18 21:36 | HP ---
HISTORY OF PRESENT ILLNESS: The patient is an 89-year-old male who presents to the Emergency Departm ent for an episode of hypoglycemia. He was found at home with altered mental status and was found to have a blood sugar of 30. He was administered glucose in the field with improvement of his symptoms . He is now admitted to the hospital for further evaluation and management. PAST MEDICAL HISTORY: The patient was recently admitted for recurrent pancreatitis, presumed seconda ry to pancreatic divisum. 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 PAST SURGICAL HISTORY: Includes benign prostatic hypertrophy. The patient may have had Billroth II gastric surgery in the remote past for peptic ulcer disease. CURRENT MEDICATIONS: Include finasteride 5 mg daily, Imdur 30 mg daily, Protonix 40 mg daily and Michael aLax p.r.n. ALLERGIES: The patient has no known drug allergies. SOCIAL HISTORY: The patient lives alone. He is independent with ADLs and needs some assistance with IADLs. He has a greater than 16-mbfg-wnac history of tobacco use. There is no history of alcohol u se. REVIEW OF SYSTEMS: Essentially negative other than above. The patient denies any chest pain, no jaime rtness of breath, no abdominal pain, no nausea, no vomiting, no melena, no bright red blood per rectu m, no fever, no chills. PHYSICAL EXAMINATION: GENERAL: The patient is a cachectic male in no acute distress. VITAL SIGNS: Blood pressure 116/48, temperature 97.9, pulse 78, respiratory rate 20. HEENT: Head is normocephalic, atraumatic. Pupils equal, round, reactive to light. Extraocular move ments are intact. There is some bilateral temporal wasting. NECK: Supple, with no thyromegaly and no carotid bruit. LUNGS: Clear. HEART: Regular rate and rhythm. ABDOMEN: Soft, nontender. Bowel sounds are normoactive. EXTREMITIES: Without cyanosis or edema. There is some clubbing of the fingernails. There is genera lized muscular wasting and atrophy of all 4 extremities bilaterally. NEUROLOGIC: The patient is awake, slightly lethargic and confused without focal sensory or motor def icits. SKIN: Warm and dry. LABORATORY DATA: WBC is 4.6, hemoglobin 10.5, hematocrit 30.8. Sodium 130, potassium 4.0, chloride 101, CO2 of 18, BUN 35, creatinine 1.4, calcium is 10.7. AST is 385, ALT 116, lipase is 15. IMPRESSION: 1. Acute hypoglycemia. 2. Failure to thrive syndrome. 3. Recurrent pancreatitis, possibly secondary to pancreatic divisum, rule out pancreatic head tumor. 4. Coronary artery disease. 5. History of type 2 diabetes mellitus. 6. Benign prostatic hypertrophy. 7. Chronic obstructive pulmonary disease. 8. Degenerative disk disease. PLAN: The patient will be admitted. Will give IV fluids, obtain a GI consult with Dr. Quintero, soc ial work for discharge planning. The patient appears to be unable to take care of himself at home. According to shipping clerk packing his apartment is in disarray and he is probably unable to take care of himself. So cial work for possible placement. Rickey Roth JD, MD cc: [id number] TT: 08/18/2016 21:35:46 corona
[2016-08-18] MEDS ORDERED: Pneumococcal 23-Valent Vaccine IM ONE (22:20)
--- NOTE | 2016-08-19 07:28 | CON ---
DATE: 08/18/2016 This 89-year-old patient was recently discharged from the hospital, presented to the Emergency Room with complaints of hypoglycemia, altered mental status. The patient has a history of recent admission for pancreatitis. The patient did have a dilated pancreatic duct. There is no obvious mass or lesion. However, the study was limited because of the history of previous Billroth II gastric surgery. The head of the pancreas could not be evaluated. The CAT scan done without contrast was a limited study. The patient did have a chronic kidney disease. The patient did have a mildly elevated creatinine and also BUN at the time of previous admission. Chronic kidney disease. The CT with IV contrast was deferred at that time. OTHER PAST MEDICAL HISTORY: Significant for Q5aauhlac, prostatic hypertrophy. COPD, recurrent pancreatitis, questionable divisum, but the CT was reviewed with radiology. The MR was reviewed, noncontributory. ALLERGIES: No known drug allergy. SOCIAL HISTORY: Positive for smoking before. Denies alcohol use. REVIEW OF SYSTEMS: Positive as above. All other systems reviewed and negative. PHYSICAL EXAMINATION: GENERAL: The patient is lying on the bed, not in acute distress. VITAL SIGNS: Pulse 97-78 blood pressure 116/48, respirations 16, O2 sat is 95, temperature is 97.9. HEENT: Atraumatic, anicteric. NECK: Supple. HEART: S1, S2 heard. LUNGS: Bilateral air entry present. ABDOMEN: Soft. There is a mild tenderness on deep palpation in the epigastric region. EXTREMITIES: No edema. No cyanosis. NEUROLOGIC: Alert at this time, oriented. LABORATORY DATA: Hemoglobin 10.5, hematocrit 30.8, WBC 4.6, platelets 256. BUN 35, creatinine 1.4, GFR calculated is 58. Total creatine kinase is elevated at 9276. IMPRESSION: This 89-year-old patient is admitted with altered mental status, hypoglycemia. The patient is found to have rhabdomyolysis with increased total creatine kinase of 9276 the patient's creatinine is also 1.4. The patient does have a history of recurrent pancreatitis with a dilated pancreatic duct. Limited evaluation of the pancreatic head could be done only. Would recommend at this point IV hydration to optimize renal function and if the prerenal function is completely recovered and improved, we will consider CT with pancreatic protocol, but will discuss with Dr. Roth regarding the renal evaluation to optimize the function. Thank you very much for allowing us to participate in the care of the patient. Dedrick Quintero MD cc: [id number] TT: 08/19/2016 07:28:03 Confirmation # [id number] Dictation # [id number] tn MTDDenae
[2016-08-19 07:38] LABS: ADD MANUAL DIFF? NO
[2016-08-19 07:48] LABS: GRAN # 3.56 (1.4-6.5); HEMATOCRIT 27.9 % (42.0-52.0); LYMPH # 0.4 (1.2-3.4); LYMPH % 8.3 % (22.0-35.0); MEAN CELL VOLUME 75.4 fL (80.0-105.0); MEAN CORPUSCULAR HEMOGLOBIN 25.7 pg (25.0-35.0); MEAN CORPUSCULAR HGB CONC 34.1 g/dl (31.0-37.0); MEAN PLATELET VOLUME 9.7 fl (7.0-11.0); MONO # 0.5 (0.1-0.6); MONO % 11.7 % (1.0-6.0); PLATELET COUNT 243 10^3/uL (120.0-450.0); RED CELL DISTRIBUTION WIDTH 17.7 % (11.5-14.5); WHITE BLOOD COUNT 4.5 10^3/ul (4.5-11.0)
[2016-08-19 08:23] LABS: BILIRUBIN,TOTAL 0.6 mg/dL (0.2-1.3); CALCIUM 10.1 mg/dL (8.4-10.5); POTASSIUM 4.1 mmol/L (3.6-5.0); TOTAL PROTEIN 5.2 g/dL (5.8-8.3)
--- NOTE | 2016-08-19 13:48 | PN ---
DATE: 08/19/2016 SUBJECTIVE: The patient is lying in bed in no acute distress. He denies chest pain or shortness of breath. OBJECTIVE: VITAL SIGNS: Blood pressure 136/64, temperature 98.8, pulse 60, respiratory rate 20. LUNGS: Clear. HEART: Regular rate and rhythm. ABDOMEN: Soft, nontender, bowel sounds are normoactive. EXTREMITIES: Without cyanosis, clubbing, or edema. NEUROLOGIC: The patient is awake and oriented x 3 without focal sensory or motor deficits. SKIN: Warm and dry. LABORATORY DATA: WBC is 4.5, hemoglobin 9.5, hematocrit 27.9. Sodium 133, potassium 4.5, chloride 1 07, CO2 20, BUN 37, creatinine 1.4, glucose 78. CPK is markedly elevated at 9276. IMPRESSION: 1. Acute rhabdomyolysis of undetermined etiology. 2. Status post acute hypoglycemia. 3. Failure to thrive syndrome, rule out occult malignancy. 4. 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 5. Coronary artery disease. 6. Type 2 diabetes mellitus. 7. Benign prostatic hypertrophy. 8. Chronic obstructive pulmonary disease. 9. Degenerative disk disease. PLAN: Continue IV fluids. We will add bicarbonate to the infusion to alkalinize the urine in light of the elevated CPK. GI consult, Dr. Quintero, is appreciated. Monitor electrolytes, CPK level and g lucose levels. Social work for discharge planning. Rickey Roth JD, MD cc: [id number] TT: 08/19/2016 13:47:30 Confirmation # [id number] Dictation # [id number] marce
[2016-08-20 07:51] LABS: ADD MANUAL DIFF? NO
[2016-08-20 08:02] LABS: EOS # 0.1 (0.0-0.7); EOS % 1.2 % (1.5-5.0); GRAN # 2.72 (1.4-6.5); GRAN % 67.8 % (50.0-68.0); HEMATOCRIT 27.7 % (42.0-52.0); LYMPH # 0.8 (1.2-3.4); LYMPH % 20.6 % (22.0-35.0); MEAN CELL VOLUME 75.3 fL (80.0-105.0); MEAN CORPUSCULAR HEMOGLOBIN 25.5 pg (25.0-35.0); MEAN CORPUSCULAR HGB CONC 33.9 g/dl (31.0-37.0); MEAN PLATELET VOLUME 9.9 fl (7.0-11.0); MONO # 0.4 (0.1-0.6); MONO % 10.4 % (1.0-6.0); PLATELET COUNT 236 10^3/uL (120.0-450.0); RED CELL DISTRIBUTION WIDTH 17.8 % (11.5-14.5)
[2016-08-20 08:19] LABS: ALKALINE PHOSPHATASE 80 U/L (38-133); ALT/SGPT 99 U/L (7-56); AST/SGOT 163 U/L (15-59); BILIRUBIN,TOTAL 0.6 mg/dL (0.2-1.3); BLOOD UREA NITROGEN 25 mg/dL (7-21); CALCIUM 9.8 mg/dL (8.4-10.5); CARBON DIOXIDE 25 mmol/L (21-33); CHLORIDE 105 mmol/L (98-107); GFR AFRICAN-AMERICAN > 60; GLUCOSE,RANDOM 74 mg/dL (70-110); POTASSIUM 3.2 mmol/L (3.6-5.0); SODIUM 134 mmol/L (132-148); TOTAL PROTEIN 5.1 g/dL (5.8-8.3)
[2016-08-20] MEDS ORDERED: Potassium Chloride 20 mEq ER Tab PO ONE (08:55)
--- NOTE | 2016-08-20 14:04 | CP.PCM.PN ---
<Johny Calzada - Last Filed: 08/20/16 13:58> Subjective - Date & Time of Evaluation Date of Evaluation: 08/20/16 Time of Evaluation: 13:59 - Subjective Subjective: GI for Dr. Quintero Pt s&e w attending. NAEON. [place] resting. Tolerating po. Denies F/C/N/V/D/CP/SOB/ weakness/dizzienss. AAO x3. Objective - Vital Signs/Intake and Output Vital Signs (last 24 hours): Temp Pulse Resp BP Pulse Ox 98 F 78 18 126/80 95 08/20/16 11:25 08/20/16 13:47 08/20/16 11:25 08/20/16 11:25 08/20/16 06:00 Intake and Output: 08/20/16 08/20/16 06:59 18:59 Intake Total 240 Balance 240 - Medications Medications: Current Medications Cholecalciferol (Vitamin D) 2,000 iu PO DAILY [facility] Last Admin: 08/20/16 09:01 Dose: 2,000 iu Sodium Bicarbonate 50 ml/ (Sodium Chloride) 1,050 mls @ 125 mls/hr IV .[id number] [facility] Last Admin: 08/20/16 09:09 Dose: 125 mls/hr - Labs Labs: 08/20/16 07:30 08/20/16 07:30 - Constitutional Appears: No Acute Distress - Head Exam Head Exam: ATRAUMATIC, NORMAL INSPECTION, NORMOCEPHALIC - Eye Exam Eye Exam: EOMI, Normal appearance, PERRL Pupil Exam: NORMAL ACCOMODATION, PERRL - ENT Exam ENT Exam: Mucous Membranes Moist, Normal Exam - Neck Exam Neck Exam: Full ROM, Normal Inspection. absent: Lymphadenopathy - Respiratory Exam Respiratory Exam: Clear to Ausculation Bilateral, NORMAL BREATHING PATTERN - Cardiovascular Exam Cardiovascular Exam: REGULAR RHYTHM, +S1, +S2. absent: Murmur - GI/Abdominal Exam GI & Abdominal Exam: Soft, Normal Bowel Sounds. absent: Distended, Tenderness - Extremities Exam Extremities Exam: Full ROM, Normal Capillary Refill, Normal Inspection. absent : Joint Swelling, Pedal Edema - Back Exam Back Exam: NORMAL INSPECTION - Neurological Exam Neurological Exam: Alert, Awake, CN II-XII Intact, Normal Gait, Oriented x3 - Psychiatric Exam Psychiatric exam: Normal Affect, Normal Mood - Skin Skin Exam: Dry, Intact, Normal Color, Warm Assessment and Plan - Assessment and Plan (Free Text) Assessment: 89 w [facility] of recurrent pancreatitis , billroth II came w rhabdomyolysis and AMS: improving BUN, Cr: wnl CK: trending down -Possible CT pancreatic protocol w contrast -MOnitor kidney function/labs DW Dr. Quintero <Leon,Kovil V - Last Filed: 10/05/16 17:22> Objective - Vital Signs/Intake and Output Vital Signs (last 24 hours): Temp Pulse Resp BP Pulse Ox 99.3 F 107 H 20 150/83 100 08/25/16 16:00 08/25/16 16:00 08/25/16 16:00 08/25/16 16:00 08/25/16 16:49 - Labs Labs: 08/23/16 07:50 08/23/16 07:50 - GI/Abdominal Exam GI & Abdominal Exam: Soft, Normal Bowel Sounds Additional comments: nontender Assessment and Plan - Assessment and Plan (Free Text) Assessment: This is an addendum to the dictation note of Dr. Calzada. Patient was seen and examined, chart was reviewed and agree with the assessment and plan.
--- NOTE | 2016-08-20 14:16 | PN ---
DATE: 08/20/2016 SUBJECTIVE: The patient is lying in bed, in no acute distress. He denies chest pain or shortness of breath. OBJECTIVE: VITAL SIGNS: Blood pressure 126/80, temperature 98, pulse 70, respiratory rate 18. LUNGS: Clear. HEART: Regular rate and rhythm. ABDOMEN: Soft, nontender, bowel sounds are normoactive. EXTREMITIES: Without cyanosis or edema. NEUROLOGIC: The patient is awake and oriented x 3 without focal, sensory or motor deficits. SKIN: Warm and dry. LABORATORY DATA: WBCs 4.0, hemoglobin 9.4, hematocrit 27.7. Sodium 134, potassium 3.2, chloride 105 , CO2 25, BUN 25, creatinine 1.1, glucose 160. CPK is 1524. Calcium level is 9.8. IMPRESSION: 1. Acute rhabdomyolysis of undetermined etiology. 2. Status post acute hypoglycemia. 3. Failure to thrive syndrome, rule out occult malignancy. 4. 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 5. Coronary artery disease. 6. Type 2 diabetes mellitus. 7. Benign prostatic hypertrophy. 8. Chronic obstructive pulmonary disease. 9. Degenerative joint disease. PLAN: Continue IV fluids. Monitor CPK. We will check troponin levels. Continue GI followup with Denae Quintero. Physical therapy and social work for discharge planning. Rickey Roth JD, MD cc: [id number] TT: 08/20/2016 14:15:49 Confirmation # [id number] Dictation # [id number] en
[2016-08-21 07:53] LABS: ADD MANUAL DIFF? NO
[2016-08-21 08:01] LABS: BASO # 0.01 K/mm3 (0.0-2.0); BASO % 0.2 % (0.0-3.0); EOS # 0.1 (0.0-0.7); EOS % 1.6 % (1.5-5.0); GRAN # 3.09 (1.4-6.5); HEMATOCRIT 30.8 % (42.0-52.0); LYMPH # 0.7 (1.2-3.4); LYMPH % 15.9 % (22.0-35.0); MEAN CELL VOLUME 76.4 fL (80.0-105.0); MEAN CORPUSCULAR HEMOGLOBIN 25.3 pg (25.0-35.0); MEAN CORPUSCULAR HGB CONC 33.1 g/dl (31.0-37.0); MEAN PLATELET VOLUME 9.5 fl (7.0-11.0); MONO # 0.5 (0.1-0.6); MONO % 11.3 % (1.0-6.0); PLATELET COUNT 203 10^3/uL (120.0-450.0); RED CELL DISTRIBUTION WIDTH 17.9 % (11.5-14.5); WHITE BLOOD COUNT 4.4 10^3/ul (4.5-11.0)
[2016-08-21 08:16] LABS: ALB/GLOB RATIO 0.9 (1.1-1.8); ALKALINE PHOSPHATASE 80 U/L (38-133); ALT/SGPT 95 U/L (7-56); AST/SGOT 122 U/L (15-59); BILIRUBIN,TOTAL 0.6 mg/dL (0.2-1.3); BLOOD UREA NITROGEN 19 mg/dL (7-21); CALCIUM 9.6 mg/dL (8.4-10.5); CARBON DIOXIDE 30 mmol/L (21-33); CHLORIDE 101 mmol/L (98-107); GFR AFRICAN-AMERICAN > 60; GLUCOSE,RANDOM 78 mg/dL (70-110); LIPASE 170 U/L (23-300); POTASSIUM 3.7 mmol/L (3.6-5.0); SODIUM 133 mmol/L (132-148); TOTAL PROTEIN 5.4 g/dL (5.8-8.3)
[2016-08-21 08:20] LABS: TROPONIN I 0.05 ng/mL
--- NOTE | 2016-08-21 15:31 | PN ---
DATE: 08/21/2016 SUBJECTIVE: The patient is lying in bed, in no acute distress. He denies chest pain or shortness of breath. Nursing staff reports some intermittent tachycardia when the patient is ambulated. He derik es chest pain, shortness of breath or palpitations. PHYSICAL EXAMINATION: VITAL SIGNS: Blood pressure 153/84, temperature 97, pulse 109, respiratory rate 20. LUNGS: Clear. HEART: Regular rate and rhythm. ABDOMEN: Soft, nontender, bowel sounds are normoactive. EXTREMITIES: Without cyanosis, clubbing, or edema. NEUROLOGIC: The patient is awake and oriented x 3 without focal, sensory or motor deficits. SKIN: Warm and dry. LABORATORY DATA: WBCs 4.4, hemoglobin 10.2, hematocrit 30.8. Sodium 133, potassium 3.7, chloride 10 1, CO2 30, BUN 19, creatinine 0.9, glucose 78. CPK is 892. Lipase 170. IMPRESSION: 1. Acute rhabdomyolysis of undetermined etiology. 2. Status post hypoglycemia. 3. Failure to thrive syndrome, rule out occult malignancy. 4. 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 5. Coronary artery disease. 6. Type 2 diabetes mellitus. 7. Benign prostatic hypertrophy. 8. Chronic obstructive pulmonary disease. 9. Degenerative joint disease. PLAN: Continue IV fluids. Monitor electrolytes and CPK. Continue GI followup with Dr. Quintero. P hysical therapy and social work for discharge planning. Rickey Roth JD, MD cc: [id number] TT: 08/21/2016 15:30:37 Confirmation # [id number] Dictation # [id number] en
--- NOTE | 2016-08-21 23:59 | PN ---
DATE: 08/21/2016 SUBJECTIVE: This patient was seen and evaluated. Not in acute distress, tolerating diet. PHYSICAL EXAMINATION: VITAL SIGNS: Temperature is 98.1, pulse 91, blood pressure is 135/86. HEENT: Atraumatic, anicteric. NECK: Supple. HEART: S1, S2 heard. LUNGS: Bilateral air entry present. ABDOMEN: Soft. There is no mass palpable. No tenderness. EXTREMITIES: No edema. No cyanosis. GENERAL: The patient overall appears very cachectic. LABORATORY DATA: Hemoglobin 10.2, hematocrit 30.8, WBC is 4.4, platelets 201. BUN 19, creatinine 0. 9. IMPRESSION: This 89-year-old patient admitted in the past with acute recurrent pancreatitis. Etiolo gy is unclear. The patient had some mildly dilated pancreatic duct. Further of the head of th e pancreas is unclear. One of the options was a CT with IV contrast. However, the patient is now ad mitted with rhabdomyolysis, but he is improving. His renal function has significantly improved. The options to be considered is repeating a CT with IV contrast to evaluate the pancreas. In view of th e recent rhabdomyolysis, the concern is to consider risking the balance of the risks and benefits. T his was explained to the patient at length in the past and also the patient's son who was visiting [facility] from [place]. I will discuss with Dr. Roth again regarding this patient. Thank you very much for allowing us to participate in the care of the patient. Dedrick Quintero MD cc: [id number] TT: 08/21/2016 23:59:06 Confirmation # [id number] Dictation # [id number] corona
--- NOTE | 2016-08-22 08:39 | PN ---
DATE: 08/19/2016 This patient was seen and evaluated earlier today. The patient's son was at bedside, who has come from [place]. PHYSICAL EXAMINATION: VITAL SIGNS: Temperature 98.7, blood pressure 124/74, respirations 18. HEENT: Atraumatic, anicteric. NECK: Supple. HEART: S1, S2 heard. LUNGS: Bilateral air entry present. ABDOMEN: Soft. There is no tenderness. Mild tenderness in the epigastric area on deep palpation, otherwise unremarkable. LABORATORY DATA: Hemoglobin 9.5, hematocrit 27.5, WBCs 4.5, platelets 243. BUN 37, creatinine . Lipase is 44. IMPRESSION: This 89-year-old patient admitted with following hypoglycemia and unresponsiveness. The patient has a history of recurrent pancreatitis. The patient has chronic kidney disease. IV contrast could not be done. The previous MRI, CT and ultrasound done. Could not evaluate well the head of the pancreas area. PLAN: I did have a detailed discussion. Other comorbidities of the patient include diabetes mellitus, enlarged prostate, chronic obstructive pulmonary disease, recurrent pancreatitis, rhabdomyolysis, acute kidney injury on the top of chronic kidney disease. RECOMMENDATIONS: Continue the IV hydration and close followup of the patient. 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 I did discuss with the patient 's son at length. He was very concerned, his father living alone. He wanted psychiatric social worker to be looked into that. Meanwhile, I did explain to him that the patient has gastric sugery, Bilroth and there were limitations on the previous workup and will consider the CAT scan with contrast once the renal function improves. He does not want his father to undergo any major decision making. Reasonable thing is to consider the IV hydration, optimize the renal function. The patient also followed by psychiatric social worker to review son concerns about living alone. Thank you very much for allowing us to participate in the care of the patient. Dedrick Quintero MD cc: [id number] TT: 08/20/2016 09:13:01 Confirmation # [id number] Dictation # [id number] en MTDD
--- NOTE | 2016-08-22 10:18 | PN ---
DATE: 08/22/2016 SUBJECTIVE: The patient is lying in bed in no acute distress. There is no chest pain, no shortness of breath, no abdominal pain. PHYSICAL EXAMINATION: VITAL SIGNS: Blood pressure 146/94, pulse 102, temperature 98.6, respiratory rate 19. LUNGS: Clear. HEART: Regular rate and rhythm. ABDOMEN: Soft, nontender, bowel sounds are normoactive. EXTREMITIES: Without cyanosis, clubbing, or edema. NEUROLOGIC: The patient is awake and oriented x 3 without focal sensory or motor deficits. SKIN: Warm and dry. IMPRESSION: 1. Acute rhabdomyolysis, probably secondary to immobility. 2. Status post hypoglycemia. 3. Failure to thrive syndrome, rule out occult malignancy. 4. Recurrent pancreatitis, possibly secondary to pancreatic divisum, rule out pancreatic head tumor. 5. Coronary artery disease. 6. Type 2 diabetes mellitus. 7. Benign prostatic hypertrophy. 8. Chronic obstructive pulmonary disease. 9. Degenerative joint disease. PLAN: We will discontinue IV fluids. The patient appears to be taking p.o. well. Monitor electroly xochilt and CPK. Continue GI followup with Dr. Quintero, physical therapy and social work for discharge planning. Rickey Roth JD, MD cc: [id number] TT: 08/22/2016 10:17:49 Confirmation # [id number] Dictation # [id number] marce
--- NOTE | 2016-08-22 12:56 | CP.PCM.PN ---
Subjective - Date & Time of Evaluation Date of Evaluation: 08/22/16 Time of Evaluation: 12:45 - Subjective Subjective: Seen and examined at bedside this afternoon, no abdominal pain, N/V, having BM, no acute overnight events. Objective - Vital Signs/Intake and Output Vital Signs (last 24 hours): Temp Pulse Resp BP Pulse Ox 98.6 F 98 H 19 146/94 H 99 08/22/16 05:48 08/22/16 10:00 08/22/16 05:48 08/22/16 05:48 08/22/16 05:48 Intake and Output: 08/22/16 08/22/16 06:59 18:59 Intake Total 1640 100 Output Total 575 575 Balance 1065 -475 - Medications Medications: Current Medications Cholecalciferol (Vitamin D) 2,000 iu PO DAILY [facility] Last Admin: 08/22/16 09:42 Dose: 2,000 iu - Labs Labs: 08/21/16 06:30 08/21/16 06:30 - Constitutional Appears: No Acute Distress - Head Exam Head Exam: NORMAL INSPECTION - Eye Exam Eye Exam: Normal appearance. absent: Scleral icterus - ENT Exam ENT Exam: Mucous Membranes Moist - Neck Exam Neck Exam: Normal Inspection - Respiratory Exam Respiratory Exam: Clear to Ausculation Bilateral. absent: Respiratory Distress , NORMAL BREATHING PATTERN - Cardiovascular Exam Cardiovascular Exam: +S1, +S2 - GI/Abdominal Exam GI & Abdominal Exam: Soft, Normal Bowel Sounds. absent: Guarding, Tenderness, Organomegaly, Rebound - Extremities Exam Extremities Exam: absent: Calf Tenderness, Pedal Edema - Neurological Exam Neurological Exam: Alert, Awake, Oriented x3 - Skin Skin Exam: Dry, Warm Assessment and Plan - Assessment and Plan (Free Text) Assessment: ASSESSMENT: Syncope Rhabdomyelosis Recurrent Pancreatitis, pancreatic dilation, unknown etiolgy h/o Bilroth II gastrectomy DM Type II Hypoglycemia PLAN: diet as tolerated Ct scan with pancreatic protocol when optimal as per neurology Seen and discussed with Dr. Quintero.
[2016-08-22] MEDS: Insulin Reg-LOW-Coverage SC SCH (21:48)
[2016-08-23] MEDS: Insulin Reg-LOW-Coverage SC SCH ×4 (07:40→21:52)
--- NOTE | 2016-08-23 08:05 | PN ---
DATE: 08/22/2016 ADDENDUM This patient was seen and evaluated earlier. This is an addendum to the GI progress report dictated by Nancy Harrison APN. The patient is . The patient's renal function has improved. The patient admitted with hypoglycemia. The patient also found to be in rhabdomyolysis with acute kidney injury on the top of chronic kidney disease. The patient has been well-hydrated with an improvement of the liver function, renal function. PHYSICAL EXAMINATION: ABDOMEN: Soft. There is no tenderness. This patient was admitted a few times with recurrent pancreatitis. His etiology is unclear. The CT MRI done without contrast in the previous admission was reviewed with the radiologist. The exact etiology of this pancreatitis is unclear. Differential diagnosis should include pancreatic mass lesion. There was no obvious mass identified; however, the view of the pancreatic head was limited. Would recommend at this point, considering the CT with pancreatic protocol, both IV and contrast p.o. contrast. In view of the recent acute kidney injury and rhabdomyolysis, we will wait for a few more days for this scan to be done. I did discuss with the patient's son in the past, who is fully aware of the diagnosis and concern regarding the pancreas; however, he also prefers the patient to have the CT scan done at a later date. The risk of kidney injury has also been explained, benefits explained. The patient is also waiting for placement and the exact timing of the CAT scan can be determined after the clinical course, after following up. The timing will be based on the clinical course. At this time, we will hold off repeating the pancreatic protocol CT in view of this rhabdomyolysis and acute kidney injury. Thank you very much for allowing me to participate in the care of the patient. Dedrick Quintero MD cc: [id number] TT: 08/23/2016 03:57:33 Confirmation # [id number] Dictation # [id number] dara BAKER
[2016-08-23 08:11] LABS: ADD MANUAL DIFF? NO
[2016-08-23 08:17] LABS: BASO # 0.01 K/mm3 (0.0-2.0); BASO % 0.1 % (0.0-3.0); EOS # 0.1 (0.0-0.7); EOS % 0.7 % (1.5-5.0); GRAN # 5.31 (1.4-6.5); GRAN % 77.6 % (50.0-68.0); HEMATOCRIT 27.8 % (42.0-52.0); LYMPH # 0.6 (1.2-3.4); LYMPH % 9.2 % (22.0-35.0); MEAN CORPUSCULAR HEMOGLOBIN 25.5 pg (25.0-35.0); MEAN CORPUSCULAR HGB CONC 33.1 g/dl (31.0-37.0); MONO # 0.9 (0.1-0.6); MONO % 12.4 % (1.0-6.0); PLATELET COUNT 204 10^3/uL (120.0-450.0); RED CELL DISTRIBUTION WIDTH 17.6 % (11.5-14.5); WHITE BLOOD COUNT 6.9 10^3/ul (4.5-11.0)
[2016-08-23 08:23] LABS: ALB/GLOB RATIO 0.9 (1.1-1.8); ALKALINE PHOSPHATASE 76 U/L (38-133); ALT/SGPT 75 U/L (7-56); AST/SGOT 58 U/L (15-59); BILIRUBIN,TOTAL 0.6 mg/dL (0.2-1.3); BLOOD UREA NITROGEN 18 mg/dL (7-21); CALCIUM 9.8 mg/dL (8.4-10.5); CARBON DIOXIDE 31 mmol/L (21-33); CHLORIDE 100 mmol/L (98-107); GFR AFRICAN-AMERICAN > 60; GLUCOSE,RANDOM 81 mg/dL (70-110); LIPASE 127 U/L (23-300); POTASSIUM 3.6 mmol/L (3.6-5.0); SODIUM 132 mmol/L (132-148); TOTAL PROTEIN 5.6 g/dL (5.8-8.3)
--- NOTE | 2016-08-23 13:23 | CP.PCM.PN ---
<Johny Calzada - Last Filed: 08/23/16 13:20> Subjective - Date & Time of Evaluation Date of Evaluation: 08/23/16 Time of Evaluation: 13:21 - Subjective Subjective: GI for Dr. Quintero Pt s&e. Pt is ambulating with help. DOing fine. Denies abd pain/f/c/v/n/d/cp/ sob. Tolerating diet. Objective - Vital Signs/Intake and Output Vital Signs (last 24 hours): Temp Pulse Resp BP Pulse Ox 98.5 F 98 H 16 136/75 100 08/23/16 12:00 08/23/16 12:00 08/23/16 12:00 08/23/16 12:00 08/23/16 05:38 Intake and Output: 08/23/16 08/23/16 06:59 18:59 Intake Total 743 Output Total 750 Balance -7 - Medications Medications: Current Medications Cholecalciferol (Vitamin D) 2,000 iu PO DAILY [facility] Last Admin: 08/23/16 09:51 Dose: 2,000 iu Insulin Human Regular (Humulin R Low) 0 units SC ACHS [facility] PRN Reason: Protocol Last Admin: 08/23/16 07:40 Dose: Not Given - Labs Labs: 08/23/16 07:50 08/23/16 07:50 - Constitutional Appears: No Acute Distress - Head Exam Head Exam: ATRAUMATIC, NORMAL INSPECTION, NORMOCEPHALIC - Eye Exam Eye Exam: EOMI, Normal appearance, PERRL Pupil Exam: NORMAL ACCOMODATION, PERRL - ENT Exam ENT Exam: Mucous Membranes Moist, Normal Exam - Neck Exam Neck Exam: Full ROM, Normal Inspection. absent: Lymphadenopathy - Respiratory Exam Respiratory Exam: Clear to Ausculation Bilateral, NORMAL BREATHING PATTERN - Cardiovascular Exam Cardiovascular Exam: REGULAR RHYTHM, +S1, +S2. absent: Murmur - GI/Abdominal Exam GI & Abdominal Exam: Soft, Normal Bowel Sounds. absent: Distended, Tenderness - Extremities Exam Extremities Exam: Full ROM, Normal Capillary Refill, Normal Inspection. absent : Joint Swelling, Pedal Edema - Neurological Exam Neurological Exam: Alert, Awake, CN II-XII Intact, Normal Gait, Oriented x3 - Psychiatric Exam Psychiatric exam: Normal Affect, Normal Mood - Skin Skin Exam: Dry, Intact, Normal Color, Warm Assessment and Plan - Assessment and Plan (Free Text) Assessment: Syncope Rhabdomyelosis Recurrent Pancreatitis, pancreatic dilation, unknown etiolgy h/o Bilroth II gastrectomy DM Type II Hypoglycemia PLAN: diet as tolerated Ct scan with pancreatic protocol when optimal as per neurology Glucose control Will D with Dr. Quintero. <Dedrick Quintero V - Last Filed: 10/05/16 21:27> Objective - Vital Signs/Intake and Output Vital Signs (last 24 hours): Temp Pulse Resp BP Pulse Ox 99.3 F 107 H 20 150/83 100 08/25/16 16:00 08/25/16 16:00 08/25/16 16:00 08/25/16 16:00 08/25/16 16:49 - Labs Labs: 08/23/16 07:50 08/23/16 07:50 Assessment and Plan - Assessment and Plan (Free Text) Assessment: Addendum to the GI progress note of Dr. Calzada. Patient was seen, examined, and chart reviewed, agree with, consider ct scan w/ pancreatic protocol when optimal , history of recurrent pancreatitis.
--- NOTE | 2016-08-23 17:20 | PN ---
DATE: 08/23/2016 SUBJECTIVE: The patient is lying in bed in no acute distress. She denies chest pain or shortness of breath. There is no abdominal pain. OBJECTIVE: VITAL SIGNS: Blood pressure 136/75, temperature 98.5, pulse 98, respiratory rate 16. LUNGS: Clear. HEART: Regular rate and rhythm. ABDOMEN: Soft, nontender, bowel sounds are normoactive. EXTREMITIES: Without cyanosis, clubbing, or edema. NEUROLOGIC: The patient is awake and oriented x 3 without focal sensory or motor deficits. SKIN: Warm and dry. IMPRESSION: 1. Acute rhabdomyolysis, probably secondary to immobility, clinically improved. 2. Status post hypoglycemia. 3. Failure to thrive syndrome, rule out occult malignancy. 4. 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 5. Coronary artery disease. 6. Type 2 diabetes mellitus. 7. Benign prostatic hypertrophy. 8. Chronic obstructive pulmonary disease. 9. Degenerative joint disease. PLAN: Continue to monitor the patient. Continue GI followup with Dr. Quintero. Physical therapy an d social work for discharge planning. Rickey Roth JD, MD cc: [id number] TT: 08/23/2016 17:20:09 Confirmation # [id number] Dictation # [id number] mn
[2016-08-23 20:09] VITALS: RESP 20
[2016-08-24] MEDS: Insulin Reg-LOW-Coverage SC SCH ×4 (08:16→21:52)
--- NOTE | 2016-08-24 12:11 | PN ---
DATE: 08/24/2016 Seen and examined at the bedside earlier today. The patient denies any abdominal pain, nausea or vom iting. He is moving his bowels. No reports of any bleeding. VITAL SIGNS: Temperature is 98.1, blood pressure 147/77, pulse 78, respirations 20, 99% on room air. No new labs are noted for today. PHYSICAL EXAMINATION: HEENT: Sclera is anicteric. NECK: Supple. CARDIAC: S1, S2. LUNG SOUNDS: With decreased breath sounds, but good air entry. ABDOMEN: With bowel sounds, soft, nontender. No rebound or guarding. EXTREMITIES: No edema. ASSESSMENT: Syncope, status post rhabdomyolysis, history of recurrent pancreatitis with pancreatic d ilatation of unknown etiology. He has history of a Billroth II gastrectomy, diabetes type 2 and came with hypoglycemia, which is resolved. PLAN: The patient may benefit from doing a CT scan with pancreatic protocol which required IV and or al contrast, but in view of recent acute kidney injury and rhabdomyolysis, we are holding off now. W abby discussed this with Dr. Roth this morning. The patient is improving. We will consider this at a later date, make sure patient's renal functions are stable. It is better. Continue current treatmen t. The patient was seen and this was discussed with the patient. Also, patient was seen and case di scussed with PMD. Nancy CASTANON cc: [id number] TT: 08/24/2016 12:11:17 Confirmation # [id number] Dictation # [id number] en
--- NOTE | 2016-08-24 13:31 | PN ---
DATE: 08/24/2016 SUBJECTIVE: The patient is lying in bed, in no acute distress. He denies chest pain or shortness br eath. There is no abdominal pain. OBJECTIVE: VITAL SIGNS: Blood pressure 139/82, pulse 92, temperature 98.5, respiratory rate 20. LUNGS: Clear. HEART: Regular rate and rhythm. ABDOMEN: Soft, nontender, bowel sounds are normoactive. EXTREMITIES: Without cyanosis, clubbing, or edema. NEUROLOGIC: The patient is awake and oriented x 3 without focal, sensory or motor deficits. SKIN: Warm and dry. IMPRESSION: 1. Acute rhabdomyolysis, secondary to immobility, clinically improved. 2. Status post hypoglycemia. 3. Failure to thrive syndrome, rule out occult malignancy. 4. History of recurrent pancreatitis, secondary to pancreatic divisum, rule out pancreatic head tumo r. 5. Coronary artery disease. 6. Type 2 diabetes mellitus. 7. Benign prostatic hypertrophy. 8. Chronic obstructive pulmonary disease. 9. Degenerative joint disease. PLAN: Continue physical therapy and social work for discharge planning. The patient will need eithe r long-term placement or referral to subacute rehab as he is unsafe for discharge to home at the pres ent time due to ADL and IADL dependence. He requires 24-hour supervision. Rickey Roth JD, MD cc: 353 TT: 08/24/2016 13:30:15 Confirmation # [id number] Dictation # [id number] en
[2016-08-25] MEDS: Insulin Reg-LOW-Coverage SC SCH ×3 (08:00→17:03)
--- NOTE | 2016-08-25 11:00 | PN ---
DATE: 08/25/2016 SUBJECTIVE: The patient is lying in bed in no acute distress. He denies chest pain or shortness of breath. There is no abdominal pain. OBJECTIVE: VITAL SIGNS: Blood pressure 130/85, temperature 98.3, pulse 94, respiratory rate 20. LUNGS: Clear. HEART: Regular rate and rhythm. ABDOMEN: Soft, nontender, bowel sounds are normoactive. EXTREMITIES: Without cyanosis, clubbing, or edema. NEUROLOGIC: The patient is awake and oriented x 3 without focal sensory or motor deficits. SKIN: Warm and dry. IMPRESSION: 1. Acute rhabdomyolysis secondary to immobility, clinically improved. 2. Status post acute hypoglycemia. 3. Failure to thrive syndrome, rule out occult malignancy. 4. History of recurrent pancreatitis secondary pancreatic divisum, rule out pancreatic head tumor. 5. Coronary artery disease. 6. Type 2 diabetes mellitus. 7. Benign prostatic hypertrophy. 8. Chronic obstructive pulmonary disease. 9. Degenerative joint disease. PLAN: Continue physical therapy, and social work for discharge planning. Rickey Roth JD, MD cc: 353 TT: 08/25/2016 10:59:38 Confirmation # [id number] Dictation # [id number] nanci
--- NOTE | 2016-08-25 14:14 | PN ---
DATE: 08/25/2016 Seen and examined at the bedside earlier today. The patient denies any nausea, vomiting, or abdomina l pain. He had a bowel movement yesterday. No reports of any overt GI bleeding. No complaints of a bdominal pain and tolerating oral intake. VITAL SIGNS: Temperature is 98.3, blood pressure is 130/83, pulse is 94, respirations 20, 98 on room air. No new labs are noted for today. PHYSICAL EXAMINATION: HEENT: Sclerae are anicteric. NECK: Supple. CARDIAC: S1, S2. LUNGS: Sounds are clear. ABDOMEN: With bowel sounds, soft, not distended, no tenderness on palpation. No organomegaly. EXTREMITIES: No edema. NEUROLOGIC: Awake, alert, and oriented. ASSESSMENT: The patient is status post hypoglycemic event. He came in with rhabdomyolysis, which is improving. He has history of recurrent pancreatitis and noted to have a pancreatic divisum, history of diabetes mellitus type 2, chronic obstructive pulmonary disease. PLAN: Continue current medical regimen. Continue with current medical treatment. CT scan with panc reatic protocol on hold now, which requires IV and oral contrast in view of acute kidney injury and r habdomyolysis. The patient was seen and case discussed with Dr. Quintero. Nancy CASTANON cc: [id number] TT: 08/25/2016 14:13:59 Confirmation # [id number] Dictation # [id number] marce
[2016-08-25 16:43] VITALS: BP 150/83; PULSE 107; TEMP 99.3; O2SAT 100
--- NOTE | 2016-08-27 13:44 | DS ---
HOSPITAL COURSE: The patient is an 89-year-old male admitted through the Emergency Department on 07/25 with acute hypoglycemia. The patient was found to be in acute rhabdomyolysis, was treated wit h IV fluids. He has had an uneventful hospital course and was discharged to the transitional care it on 08/25/2016 for further rehabilitation and discharge planning. Physical examination including vit al signs on discharge are documented on the progress note of 08/25/2016. The patient was discharged to the transitional care unit on finasteride 5 mg daily and vitamin D 2000 units daily. He was trans ferred on a heart healthy diet. Activity: Per the rehabilitation unit. IMPRESSION: 1. Status post acute rhabdomyolysis, clinically improved. 2. Status post hypoglycemia. 3. Failure to thrive syndrome, rule out occult malignancy. Rickey Roth JD, MD cc: 353 TT: 08/27/2016 13:43:47 fl
== END 2016-08-25 19:48 | DRG 558 ==
LOC: ED 11:46 → ERH 15:33 → 2RSO 17:48 → 5RSO 08-24 14:42
PROVIDERS: ADMIT Internal Medicine; ATTEND Internal Medicine
DX: M62.82 Rhabdomyolysis (principal); N17.9 Acute kidney failure, unspecified; E11.649 Type 2 diabetes mellitus with hypoglycemia without coma; E11.22 Type 2 diabetes mellitus with diabetic chronic kidney disease; N18.9 Chronic kidney disease, unspecified; R62.7 Adult failure to thrive; K86.1 Other chronic pancreatitis; J44.9 Chronic obstructive pulmonary disease, unspecified; I25.10 Atherosclerotic heart disease of native coronary artery without angina pectoris; E78.00 Pure hypercholesterolemia, unspecified; N40.0 Benign prostatic hyperplasia without lower urinary tract symptoms; M19.90 Unspecified osteoarthritis, unspecified site; Z87.891 Personal history of nicotine dependence

== ENCOUNTER 2016-08-25 19:48 | Inpatient (IN) | payer MEDICARE, OTHER ==
[2016-08-25 20:16] VITALS: BMI 21.6
[2016-08-25] MEDS ORDERED: Pneumococcal 23-Valent Vaccine IM ONE (22:04)
[2016-08-25] MEDS: Insulin Reg-LOW-Coverage SC SCH (22:07)
[2016-08-26] MEDS: Insulin Reg-LOW-Coverage SC SCH ×4 (08:36→21:38)
--- NOTE | 2016-08-26 14:47 | HP ---
HISTORY OF PRESENT ILLNESS: The patient is an 89-year-old male who was transferred to the transition [place]n care unit for rehabilitation status post hospital admission for acute rhabdomyolysis. The patient received IV hydration with improvement and is medically stable. He denies any chest pain or shortne ss of breath. There is no abdominal pain, no nausea, no vomiting, no fever, no chills. PAST MEDICAL HISTORY: Includes a recent admission for hypoglycemia where he was found at home unresp onsive. He has a history of type 2 diabetes mellitus, which is essentially diet controlled. 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 PAST SURGICAL HISTORY: Includes BPH. The patient may have had a Billroth II gastric surgery in the remote past for peptic ulcer disease. CURRENT MEDICATIONS: Include vitamin D 2000 units daily. He is on regular insulin coverage, low dos e protocol. ALLERGIES: The patient has no known drug allergies. SOCIAL HISTORY: The patient lives alone. He was previously independent with ADLs and required some assistance with IADLs, but now has some ADL dependence. He needs assistance with transferring. He i s dependent with IADLs. REVIEW OF SYSTEMS: Essentially negative. PHYSICAL EXAMINATION: GENERAL: The patient is a well-developed, slightly cachectic male in no acute distress. VITAL SIGNS: Blood pressure 131/76, temperature 97, pulse 97, respiratory rate 16. HEENT: Head is normocephalic, atraumatic. Pupils equal, round, reactive to light. Extraocular move ments intact. There is some bilateral temporal wasting. NECK: Supple, with no thyromegaly, no carotid bruit. LUNGS: Clear. HEART: Regular rate and rhythm. ABDOMEN: Soft, nontender, bowel sounds are normoactive. EXTREMITIES: Without cyanosis or edema. There is some clubbing of the fingernails bilaterally. The re is generalized muscle wasting and atrophy of all 4 extremities. NEUROLOGIC: The patient is awake and alert without focal, sensory or motor deficits. SKIN: Warm and dry. IMPRESSION: 1. Status post acute rhabdomyolysis, probably secondary to immobility. 2. Status post acute hypoglycemia. 3. Failure to thrive syndrome, rule out underlying occult malignancy. 4. History of recurrent pancreatitis, possibly secondary to pancreatic divisum. Rule out pancreatic head tumor. 5. Coronary artery disease. 6. Type 2 diabetes mellitus, diet controlled. 7. Benign prostatic hypertrophy. 8. Chronic obstructive pulmonary disease. 9. Degenerative joint disease. PLAN: The patient is for subacute rehabilitation. Social work for discharge planning in conjunction with family. Rickey Roth JD, MD cc: [id number] TT: 08/26/2016 14:46:09 rn
--- NOTE | 2016-08-26 19:47 | PN ---
DATE: 08/26/2016 SUBJECTIVE: This patient was seen and evaluated earlier today. The patient now is in the transition al care unit. The patient was recently admitted to the med/surg floor with rhabdomyolysis with acute kidney injury. The patient is slowly improving. History of recurrent pancreatitis. The patient grissom s Billroth II gastrectomy with a limited evaluation of the pancreatic head. The patient did have a d ilated pancreatic duct. PHYSICAL EXAMINATION: VITAL SIGNS: Afebrile, blood pressure 131/76, pulse 97, respirations 16. HEENT: Atraumatic, anicteric. NECK: Supple. HEART: S1, S2 heard. LUNGS: Bilateral air entry present. ABDOMEN: Soft. There is no tenderness. EXTREMITIES: No edema, no cyanosis. IMPRESSION: Status post rhabdomyolysis, acute kidney injury on top of chronic kidney disease improvi ng, history of recurrent pancreatitis etiology is unclear. Limited evaluation of the pancreatic head , coronary artery disease, diabetes mellitus, chronic obstructive pulmonary disease. RECOMMENDATIONS: We would recommend continue the present management. Depending on the clinical cour se, we may consider a CT of the pancreas with pancreatic protocol while in the transitional car e unit. We will repeat the labs in a.m. Thank you very much for allowing us to participate in the care of the patient. Dedrick Quintero MD cc: [id number] TT: 08/26/2016 19:46:29 Confirmation # [id number] Dictation # [id number] awilda
[2016-08-27] MEDS: Insulin Reg-LOW-Coverage SC SCH ×4 (06:44→21:44)
[2016-08-27 12:02] LABS: ALB/GLOB RATIO 0.8 (1.1-1.8); ALKALINE PHOSPHATASE 76 U/L (38-133); ALT/SGPT 61 U/L (7-56); AST/SGOT 52 U/L (15-59); BILIRUBIN,TOTAL 0.3 mg/dL (0.2-1.3); BLOOD UREA NITROGEN 29 mg/dL (7-21); CALCIUM 10.2 mg/dL (8.4-10.5); CARBON DIOXIDE 30 mmol/L (21-33); CHLORIDE 100 mmol/L (98-107); GFR AFRICAN-AMERICAN > 60; GLUCOSE,RANDOM 114 mg/dL (70-110); POTASSIUM 4.7 mmol/L (3.6-5.0); SODIUM 132 mmol/L (132-148); TOTAL PROTEIN 5.9 g/dL (5.8-8.3)
[2016-08-27 12:15] LABS: HEMATOCRIT 25.3 % (42.0-52.0); MEAN CELL VOLUME 77.8 fL (80.0-105.0); MEAN CORPUSCULAR HEMOGLOBIN 25.2 pg (25.0-35.0); MEAN CORPUSCULAR HGB CONC 32.4 g/dl (31.0-37.0); MEAN PLATELET VOLUME 9.5 fl (7.0-11.0); RED CELL DISTRIBUTION WIDTH 17.7 % (11.5-14.5); WHITE BLOOD COUNT 6.4 10^3/ul (4.5-11.0)
--- NOTE | 2016-08-27 13:32 | PN ---
DATE: 08/27/2016 SUBJECTIVE: The patient is lying in bed in no acute distress. OBJECTIVE: VITAL SIGNS: Blood pressure 131/76, temperature 97, pulse 110, respiratory rate 16. LUNGS: Clear. HEART: Regular rate and rhythm. Slightly tachycardic. ABDOMEN: Soft, nontender. Bowel sounds are normoactive. EXTREMITIES: Without cyanosis or edema. There is some clubbing of the fingernails bilaterally. NEUROLOGIC: The patient is awake and alert without focal, sensory or motor deficits. SKIN: Warm and dry. IMPRESSION: 1. Status post acute rhabdomyolysis secondary to mobility. 2. Failure to thrive syndrome, rule out underlying occult malignancy. 3. 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 4. Coronary artery disease. 5. Type 2 diabetes mellitus, diet controlled. 6. Benign prostatic hypertrophy. 7. Chronic obstructive pulmonary disease. 8. Degenerative joint disease. PLAN: Continue physical therapy for ambulation. Social work for discharge planning in conjunction w ith the family. We will check hemoglobin, hematocrit and stool for occult blood, secondary to decrea se in hemoglobin and hematocrit. Start empiric Protonix 40 mg daily. Continue GI followup with Dr. Quintero. Rickey Roth JD, MD cc: 353 TT: 08/27/2016 13:31:17 Confirmation # [id number] Dictation # [id number] mn
[2016-08-28] MEDS: Pantoprazole 40 mg EC Tab PO SCH (05:46)
[2016-08-28 06:53] LABS: ADD MANUAL DIFF? NO
[2016-08-28] MEDS: Insulin Reg-LOW-Coverage SC SCH ×4 (06:53→22:22)
[2016-08-28 07:09] LABS: BASO # 0.02 K/mm3 (0.0-2.0); BASO % 0.3 % (0.0-3.0); EOS # 0.1 (0.0-0.7); EOS % 0.7 % (1.5-5.0); GRAN # 5.53 (1.4-6.5); GRAN % 79.7 % (50.0-68.0); HEMATOCRIT 26.2 % (42.0-52.0); LYMPH # 0.7 (1.2-3.4); LYMPH % 10.7 % (22.0-35.0); MEAN CELL VOLUME 77.5 fL (80.0-105.0); MEAN CORPUSCULAR HGB CONC 33.6 g/dl (31.0-37.0); MEAN PLATELET VOLUME 9.6 fl (7.0-11.0); MONO # 0.6 (0.1-0.6); MONO % 8.6 % (1.0-6.0); PLATELET COUNT 404 10^3/uL (120.0-450.0); RED CELL DISTRIBUTION WIDTH 17.6 % (11.5-14.5); WHITE BLOOD COUNT 6.9 10^3/ul (4.5-11.0)
[2016-08-28 07:26] LABS: ALB/GLOB RATIO 0.8 (1.1-1.8); ALKALINE PHOSPHATASE 87 U/L (38-133); ALT/SGPT 63 U/L (7-56); AST/SGOT 48 U/L (15-59); BILIRUBIN,TOTAL 0.4 mg/dL (0.2-1.3); BLOOD UREA NITROGEN 26 mg/dL (7-21); CALCIUM 10.5 mg/dL (8.4-10.5); CARBON DIOXIDE 30 mmol/L (21-33); CHLORIDE 101 mmol/L (98-107); GFR AFRICAN-AMERICAN > 60; GLUCOSE,RANDOM 85 mg/dL (70-110); SODIUM 133 mmol/L (132-148); TOTAL PROTEIN 6.2 g/dL (5.8-8.3)
--- NOTE | 2016-08-28 11:46 | PN ---
DATE: 08/28/2016 GI FOLLOWUP NOTE Seen and examined at the bedside this morning. The patient is going to have physical therapy. He de nies any nausea, vomiting, or abdominal pain. Complains of right knee pain. He is moving his bowels . No reports of any diarrhea or any bleeding. VITAL SIGNS: Temperature is 97. His blood pressure is 131/76, respirations 16, 98 on room air. LABORATORY DATA: WBC 6.9. H and H are 8.8 and 26.2, platelets of 404. Sodium 133. K is 5.0. BUN 26. Creatinine is 1.1. Total bilirubin is 0.4, AST 48, ALT 63. Alk phos is 87. PHYSICAL EXAMINATION: HEENT: Sclerae are anicteric. NECK: Supple. CARDIAC: S1, S2. LUNGS: Lung sounds are clear. ABDOMEN: With bowel sounds, soft, not tender. No rebound or guarding. NEUROLOGIC: Awake, alert, and oriented. ASSESSMENT: Status post rhabdomyolysis. 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 Also, the patient with acute on chronic kidney disease. PLAN: Continue current treatment and consider CAT scan with pancreatic protocol when optimal. He is in TCU, and we will see his clinical course. Discussed with Dr. Quintero. Nancy CASTANON cc: 451 TT: 08/28/2016 11:45:25 Confirmation # [id number] Dictation # [id number] awilda
--- NOTE | 2016-08-28 13:12 | PN ---
DATE: 08/28/2016 SUBJECTIVE: The patient is lying in bed in no acute distress. OBJECTIVE: VITAL SIGNS: Blood pressure 131/76, temperature 97, pulse 97, respiratory rate 16. LUNGS: Clear. HEART: Regular rate and rhythm. ABDOMEN: Soft, nontender, bowel sounds are normoactive. EXTREMITIES: Without cyanosis or edema. NEUROLOGIC: The patient is awake and alert without focal, sensory or motor deficits. SKIN: Warm and dry. LABORATORY DATA: WBC 6.9, hemoglobin 8.8, hematocrit 26.2, sodium 133, potassium 5.0, chloride 102, CO2 30, BUN 26, creatinine 1.1, glucose 85. IMPRESSION: 1. Microcytic anemia, rule out gastrointestinal blood loss. 2. Status post acute rhabdomyolysis secondary to immobility. 3. Failure to thrive syndrome, rule out occult malignancy. 4. 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 5. Coronary artery disease. 6. Type 2 diabetes mellitus, diet controlled. 7. Benign prostatic hypertrophy. 8. Chronic obstructive pulmonary disease. 9. Degenerative joint disease. PLAN: Continue physical therapy for ambulation. Social work for discharge planning. Monitor hemogl obin and hematocrit. Check stool for occult blood. Continue empiric Protonix 40 mg daily and GI fol lowup with Dr. Quintero. Rickey Roth JD, MD cc: 353 TT: 08/28/2016 13:11:27 Confirmation # [id number] Dictation # [id number] nanci
[2016-08-29] MEDS: Pantoprazole 40 mg EC Tab PO SCH (05:43)
[2016-08-29] MEDS: Insulin Reg-LOW-Coverage SC SCH ×4 (09:11→21:18)
--- NOTE | 2016-08-29 18:33 | PN ---
DATE: 08/29/2016 SUBJECTIVE: The patient is lying in bed in no acute distress. He denies abdominal pain. There is n o melena, no bright red blood per rectum. No nausea, no vomiting, no diarrhea. OBJECTIVE: VITAL SIGNS: Blood pressure 135/77, temperature 98.3, pulse 71, respiratory rate 16. LUNGS: Clear. HEART: Regular rate and rhythm. ABDOMEN: Soft, nontender, bowel sounds are normoactive. EXTREMITIES: Without cyanosis or edema. NEUROLOGIC: The patient is awake and alert without focal, sensory or motor deficits. SKIN: Warm and dry. IMPRESSION: 1. Microcytic anemia, rule out gastrointestinal blood loss. 2. Status post acute rhabdomyolysis secondary to immobility. 3. Failure to thrive syndrome, rule out occult malignancy. 4. 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 5. Coronary artery disease. 6. Type 2 diabetes mellitus/diet controlled. 7. Benign prostatic hypertrophy. 8. Chronic obstructive pulmonary disease. 9. Degenerative joint disease. PLAN: Continue physical therapy for ambulation and social work for discharge planning. Monitor hemo globin and hematocrit. Check stool for occult blood. Continue empiric Protonix 40 mg daily. Follow up with GI, Dr. Quintero. Rickey Roth JD, MD cc: 353 TT: 08/29/2016 18:32:27 Confirmation # [id number] Dictation # [id number] corona
[2016-08-30] MEDS: Pantoprazole 40 mg EC Tab PO SCH (05:55)
[2016-08-30] MEDS: Insulin Reg-LOW-Coverage SC SCH ×4 (07:01→21:59)
--- NOTE | 2016-08-30 09:52 | PN ---
DATE: 08/30/2016 Seen and examined at the bedside earlier this morning. The patient with no new complaints. Denies n ausea, vomiting, or abdominal pain. No acute overnight events reported. The patient had a large bow el movement 2 days ago. No complaints of abdominal pain. LABORATORY DATA: No new labs noted except for POC glucose 111. PHYSICAL EXAMINATION: HEENT: Sclerae are anicteric. NECK: Supple. CARDIAC: S1, S2. LUNGS: With decreased breath sounds, but good aeration, no rales or wheeze. ABDOMEN: With bowel sounds, soft, nontender, no rebound, no guarding. EXTREMITIES: No edema. NEUROLOGIC: Awake, alert, and oriented. ASSESSMENT: The patient is status post rhabdomyolysis, history of recurrent pancreatitis, likely may be secondary to pancreatic divisum, history of Billroth II gastric surgery, anemia, history of diabe xochilt mellitus type 2, chronic obstructive pulmonary disease. PLAN: We are considering CT scan with pancreatic protocol. It was discussed previously with the son . We will contact him again if CT scan with pancreatic protocol to be done. We will consider hydrat ing patient with IV fluids prior to and post. In review of anemia, we will check iron studies, check B12 and folate. He is pending stool for guaiac. The patient did have an endoscopy done recently wi th EUS and that was on 08/02/2016 and esophagus and duodenum were endoscopically normal. There was so me mild inflammation in the stomach. Biopsies were obtained and the gastric biopsies were negative f or H. pylori and did show some mild chronic active inflammation. Continue PPI and diet. The patient was seen and discussed with Dr. Quintero. Nancy CASTANON cc: 451 TT: 08/30/2016 09:51:47 Confirmation # [id number] Dictation # [id number] dara
--- NOTE | 2016-08-30 14:18 | PN ---
DATE: 08/30/2016 SUBJECTIVE: The patient is lying in bed in no acute distress. He denies abdominal pain. There is n o nausea, no vomiting, no diarrhea, no melena, no bright red blood per rectum. OBJECTIVE: VITAL SIGNS: Blood pressure 135/77, temperature 98.3, pulse 71, respiratory rate 16. LUNGS: Clear. HEART: Regular rate and rhythm. ABDOMEN: Soft, nontender, bowel sounds are normoactive. EXTREMITIES: Without cyanosis, clubbing, or edema. NEUROLOGIC: The patient is awake and alert without focal, sensory or motor deficits. SKIN: Warm and dry. IMPRESSION: 1. Microcytic anemia, rule out gastrointestinal blood loss. 2. Status post acute rhabdomyolysis secondary to immobility. 3. Failure to thrive syndrome, rule out occult malignancy. 4. 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 5. Coronary artery disease. 6. Type 2 diabetes mellitus/diet controlled. 7. Benign prostatic hypertrophy. 8. Chronic obstructive pulmonary disease. 9. Degenerative joint disease. PLAN: Continue physical therapy for ambulation and social work for discharge planning. Continue GI followup with Dr. Quintero. Continue empiric Protonix 40 mg daily. Rickey Roth JD, MD cc: 353 TT: 08/30/2016 14:17:32 Confirmation # [id number] Dictation # [id number] marce
--- NOTE | 2016-08-30 19:04 | PN ---
DATE: 08/30/2016 ADDENDUM This is an addendum to the GI progress report dictated by Nancy Harrison APN. The patient is tolerating the diet. He still has ____ tolerating. Denies any abdominal discomfort a t the present time. This patient has a history of recurrent pancreatitis. Status post Billroth II g astrectomy. In the optimal ____ of the pancreas was patient would benefit from the CT of the abdomen with pancreatic protocol to further evaluate the pancreatic head. But, this decision was deferred i n view of this renal dysfunction. The patient's renal function has improved now, status post recent rhabdomyolysis. The patient has been ____. We will repeat the labs in a.m. and if the blood work sh ows GFR is optimum, then we will discuss with Dr. Roth again and consider CT with pancreatic protoco l with further hydration. Thank you very much for allowing us to participate in the care of the patient. Dedrick Quintero MD cc: 416 TT: 08/30/2016 19:03:29 Confirmation # [id number] Dictation # [id number] sn
[2016-08-31] MEDS: Pantoprazole 40 mg EC Tab PO SCH (06:14)
[2016-08-31] MEDS: Insulin Reg-LOW-Coverage SC SCH ×4 (06:41→22:42)
[2016-08-31 10:45] LABS: ADD MANUAL DIFF? NO
[2016-08-31 10:52] LABS: BASO # 0.02 K/mm3 (0.0-2.0); BASO % 0.4 % (0.0-3.0); EOS # 0.1 (0.0-0.7); EOS % 2.2 % (1.5-5.0); GRAN # 3.35 (1.4-6.5); GRAN % 72.1 % (50.0-68.0); LYMPH # 0.9 (1.2-3.4); LYMPH % 19.1 % (22.0-35.0); MEAN CELL VOLUME 80.6 fL (80.0-105.0); MEAN CORPUSCULAR HEMOGLOBIN 25.1 pg (25.0-35.0); MEAN CORPUSCULAR HGB CONC 31.1 g/dl (31.0-37.0); MEAN PLATELET VOLUME 8.8 fl (7.0-11.0); MONO # 0.3 (0.1-0.6); MONO % 6.2 % (1.0-6.0); PLATELET COUNT 566 10^3/uL (120.0-450.0); RED CELL DISTRIBUTION WIDTH 17.3 % (11.5-14.5); RETIC% 1.25 % (0.5-1.5); WHITE BLOOD COUNT 4.7 10^3/ul (4.5-11.0)
[2016-08-31 11:07] LABS: BLOOD UREA NITROGEN 28 mg/dL (7-21); CALCIUM 10.2 mg/dL (8.4-10.5); CARBON DIOXIDE 28 mmol/L (21-33); CHLORIDE 104 mmol/L (95-110); GFR AFRICAN-AMERICAN > 60; GLUCOSE,RANDOM 102 mg/dL (70-110); SODIUM 134 mmol/L (132-148)
[2016-08-31 11:26] LABS: IRON 14 ug/dL (45-180)
--- NOTE | 2016-08-31 16:01 | PN ---
DATE: 08/31/2016 SUBJECTIVE: The patient is lying in bed, in no acute distress. He denies any abdominal pain. There is no nausea, no vomiting, no diarrhea, no melena, no bright red blood per rectum. OBJECTIVE: VITAL SIGNS: Blood pressure 135/87, temperature 98.1, pulse 73, respiratory rate 16. LUNGS: Clear. HEART: Regular rate and rhythm. ABDOMEN: Soft, nontender, bowel sounds are normoactive. EXTREMITIES: Without cyanosis or edema. NEUROLOGIC: The patient is awake and oriented x 3 without focal, sensory or motor deficits. SKIN: Warm and dry. LABORATORY DATA: WBCs 4.7, hemoglobin 8.4, hematocrit 27.0. Sodium 134, potassium 5.0, chloride 102 , CO2 18, BUN 28, creatinine 1.3, glucose 102. IMPRESSION: 1. Microcytic anemia, rule out gastrointestinal blood loss. Hemoglobin and hematocrit are stable. 2. Status post acute rhabdomyolysis, secondary to immobility. 3. Failure to thrive syndrome, rule out occult malignancy. 4. 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 5. Coronary artery disease. 6. Type 2 diabetes mellitus/diet controlled. 7. Benign prostatic hypertrophy. 8. Chronic obstructive pulmonary disease. 9. Degenerative joint disease. PLAN: Continue physical therapy for ambulation and social work for discharge planning. Continue GI followup with Dr. Quintero. Rickey Roth JD, MD cc: 353 TT: 08/31/2016 16:01:14 Confirmation # [id number] Dictation # [id number] en
--- NOTE | 2016-08-31 16:02 | CP.PCM.PN ---
Subjective - Date & Time of Evaluation Date of Evaluation: 08/31/16 Time of Evaluation: 09:50 - Subjective Subjective: Seen and examined earlier today. No N/V ,abdominal pain. No new complaints. Tolerating oral intake. No reports of acute overnight events. Objective - Vital Signs/Intake and Output Vital Signs (last 24 hours): Temp Pulse Resp BP Pulse Ox 98.1 F 73 16 135/81 96 08/31/16 10:00 08/31/16 10:00 08/31/16 10:00 08/31/16 10:00 08/31/16 10:00 Intake and Output: 08/31/16 08/31/16 06:59 18:59 Intake Total 240 Output Total 250 Balance -10 - Medications Medications: Current Medications Cholecalciferol (Vitamin D) 2,000 iu PO DAILY [facility] Last Admin: 08/31/16 09:54 Dose: 2,000 iu Indomethacin (Indocin) 25 mg PO TID [facility] Last Admin: 08/31/16 09:53 Dose: 25 mg Insulin Human Regular (Humulin R Low) 0 units SC ACHS [facility] PRN Reason: Protocol Last Admin: 08/31/16 06:41 Dose: Not Given Pantoprazole Sodium (Protonix Ec Tab) 40 mg PO 0630 [facility] Last Admin: 08/31/16 06:14 Dose: 40 mg - Labs Labs: 08/31/16 10:44 08/31/16 10:44 - Constitutional Appears: No Acute Distress - Head Exam Head Exam: NORMOCEPHALIC - Eye Exam Eye Exam: Normal appearance. absent: Scleral icterus - ENT Exam ENT Exam: Mucous Membranes Moist - Neck Exam Neck Exam: Normal Inspection - Respiratory Exam Respiratory Exam: NORMAL BREATHING PATTERN. absent: Respiratory Distress - Cardiovascular Exam Cardiovascular Exam: +S1, +S2 - GI/Abdominal Exam GI & Abdominal Exam: Soft, Normal Bowel Sounds. absent: Guarding, Tenderness, Organomegaly, Rebound - Neurological Exam Neurological Exam: Alert, Awake, Oriented x3 - Skin Skin Exam: Dry, Warm Assessment and Plan - Assessment and Plan (Free Text) Assessment: ASSESSMENT: S/p Rhabdomylosis Anemia, Iron Deficiency Recurrent Pancreatitis, pancreatic Divisim Gastric sx, Bilroth II PLAN: recent EGD , no Ulcers continue GI prophylaxsis FU Vit B12, folate Ct scan with pancreatic protocol when optimal. Seen and discussed with Dr. Quintero.
[2016-08-31 17:33] LABS: FOLATE 10.3 ng/mL
--- NOTE | 2016-08-31 22:37 | PN ---
DATE: 08/31/2016 ADDENDUM This is an addendum to the GI progress report dictated by Nancy Harrison APN. The patient's labs were reviewed again. Her creatinine is still , BUN 28, creatinine 1.3. The patient appears very cac hectic. The p.o. intake is slightly improved. On examination, abdomen is soft. There is no tenderne ss. I did discussed with Dr. Roth earlier regarding this patient's CAT scan. The real concern is i n view of the recent rhabdomyolysis and acute on chronic kidney disease with significantly lowered re nal function at the time of admission, the risk of the patient precipitating another acute renal fail ure is high with the dye IV contrast. I agree with Dr. Roth regarding this. We will also discuss w ith the patient's son and apprise of the present situation. Thank you very much for allowing us to participate in the care of the patient. Dedrick Quintero MD cc: 416 TT: 08/31/2016 22:36:30 Confirmation # [id number] Dictation # [id number] ln
[2016-09-01] MEDS: Pantoprazole 40 mg EC Tab PO SCH (05:51)
[2016-09-01] MEDS: Insulin Reg-LOW-Coverage SC SCH ×4 (06:59→21:34)
--- NOTE | 2016-09-01 11:40 | PN ---
DATE: 09/01/2016 SUBJECTIVE: The patient is lying in bed in no acute distress. He denies any abdominal pain. He has no nausea, no vomiting, no diarrhea, no melena, no bright red blood per rectum. OBJECTIVE: VITAL SIGNS: Blood pressure 135/81, temperature 98.1, pulse 73, respiratory rate 16. LUNGS: Clear. HEART: Regular rate and rhythm. ABDOMEN: Soft, nontender. Bowel sounds are normoactive. EXTREMITIES: Without cyanosis or edema. NEUROLOGIC: The patient is awake and oriented x 3 without focal sensory or motor deficits. SKIN: Warm and dry. IMPRESSION: 1. Microcytic anemia, rule out gastrointestinal blood loss, hemoglobin and hematocrit are stable. 2. Status post acute rhabdomyolysis secondary to immobility. 3. Failure to thrive syndrome, rule out occult malignancy. 4. 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 5. Coronary artery disease. 6. Type 2 diabetes mellitus, diet controlled. 7. Benign prostatic hypertrophy. 8. Chronic obstructive pulmonary disease. 9. Degenerative joint disease. PLAN: Continue physical therapy for ambulation and social work for discharge planning. Continue GI followup with Dr. Quintero. He will discuss possible CT of the abdomen with son with contrast. The pros and cons in light of the potential for renal problems with contrast. Rickey Roth JD, MD cc: 353 TT: 09/01/2016 11:38:47 Confirmation # [id number] Dictation # [id number] tn
[2016-09-02] MEDS: Pantoprazole 40 mg EC Tab PO SCH (05:32)
[2016-09-02] MEDS: Insulin Reg-LOW-Coverage SC SCH ×3 (06:38→17:27)
--- NOTE | 2016-09-02 13:40 | PN ---
DATE: 09/02/2016 SUBJECTIVE: The patient is lying in bed in no acute distress. He denies chest pain or shortness penelope ath. He denies abdominal pain. There is no nausea, no vomiting, no diarrhea. OBJECTIVE: VITAL SIGNS: Blood pressure 132/75, temperature 98.1, pulse 78, respiratory rate 16. LUNGS: Clear. HEART: Regular rate and rhythm. ABDOMEN: Soft, nontender, bowel sounds are normoactive. EXTREMITIES: Without cyanosis, clubbing, or edema. NEUROLOGIC: The patient is awake and oriented x 3 without focal sensory or motor deficits. SKIN: Warm and dry. IMPRESSION: 1. Microcytic anemia, rule out gastrointestinal blood loss, hemoglobin and hematocrit are stable. 2 . Status post acute rhabdomyolysis secondary to immobility. 3. Failure to thrive syndrome, rule out occult malignancy. 4. 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 5. Coronary artery disease. 6. Type 2 diabetes mellitus/diet controlled. 7. Benign prostatic hypertrophy. 8. Chronic obstructive pulmonary disease. 9. Degenerative joint disease. PLAN: Continue physical therapy for ambulation and social work for discharge planning. Continue GI followup with Dr. Quintero. Rickey Roth JD, MD cc: 353 TT: 09/02/2016 13:39:29 Confirmation # [id number] Dictation # [id number] marce
--- NOTE | 2016-09-02 17:44 | PN ---
DATE: 09/02/2016 SUBJECTIVE: This patient was seen and evaluated earlier today. On examination earlier today, no spe cific complaints. The family was at bedside. PHYSICAL EXAMINATION: VITAL SIGNS: Temperature is 98.1, pulse 70, blood pressure 134/75. HEENT: Atraumatic, anicteric. NECK: Supple. HEART: S1, S2 heard. LUNGS: Bilateral air entry present. ABDOMEN: Soft. There is no mass palpable. No tenderness. EXTREMITIES: No edema. No cyanosis. The patient appears more cachectic, the patient appears weak. IMPRESSION: Failure to thrive, rule out occult malignancy. The patient has a recent rhabdomyolysis, chronic kidney disease. I did discuss with the patient and the family regarding the IV contrast CAT scan. In view of the recent acute kidney injury, we will hold off at the present time repeating the CT. Also, moreover, patient's condition to be optimized before further, if any, further interventio n is required. His other comorbidities include chronic obstructive pulmonary disease, status post Bi llroth II gastrectomy diabetes mellitus diet controlled, coronary artery disease. Thank you very much for allowing us to participate in the care of the patient. Dedrick Quintero MD cc: 416 TT: 09/02/2016 17:43:16 Confirmation # [id number] Dictation # [id number] jn
[2016-09-03] MEDS: Insulin Reg-LOW-Coverage SC SCH ×4 (00:53→17:33)
[2016-09-03] MEDS: Pantoprazole 40 mg EC Tab PO SCH (05:32)
--- NOTE | 2016-09-03 11:59 | PN ---
DATE: 09/03/2016 SUBJECTIVE: The patient is lying in bed in no acute distress. He denies chest pain or shortness of breath. There is no abdominal pain, nausea, vomiting or diarrhea. OBJECTIVE: VITAL SIGNS: Blood pressure 131/74, temperature 98.3, pulse 84, respiratory rate 18. LUNGS: Clear. HEART: Regular rate and rhythm. ABDOMEN: Soft, nontender, bowel sounds are normoactive. EXTREMITIES: Without cyanosis, clubbing, or edema. NEUROLOGIC: The patient is awake and oriented x 3 without focal sensory or motor deficits. SKIN: Warm and dry. IMPRESSION: 1. Microcytic anemia, rule out gastrointestinal blood loss, hemoglobin and hematocrit are stable. 2. Status post acute rhabdomyolysis secondary to immobility. 3. Failure to thrive syndrome/rule out occult malignancy. 4. 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 5. Coronary artery disease. 6. Type 2 diabetes mellitus/diet controlled. 7. Benign prostatic hypertrophy. 8. Chronic obstructive pulmonary disease. 9. Degenerative joint disease. PLAN: Continue physical therapy for ambulation and social work for discharge planning. Continue GI followup with Dr. Quintero. Rickey Roth JD, MD cc: 353 TT: 09/03/2016 11:58:31 Confirmation # [id number] Dictation # [id number] awilda
--- NOTE | 2016-09-03 12:46 | PN ---
DATE: 09/03/2016 SUBJECTIVE: This patient was seen and evaluated earlier. The patient feels better. Tolerating the diet, no complaints of abdominal pain now. PHYSICAL EXAMINATION: VITAL SIGNS: Temperature is 98.3, blood pressure 131/74, pulse 84, respirations 19, and O2 saturatio n 100%. HEENT: Atraumatic, anicteric. NECK: Supple. HEART: S1, S2 heard. LUNGS: Bilateral air entry present. ABDOMEN: Soft. There is no tenderness. EXTREMITIES: No cyanosis, no clubbing. LABORATORY DATA: There are no recent labs. Last labs, BUN of 28, creatinine 1.3. IMPRESSION: Recurrent pancreatitis. Limited evaluation of the pancreas. I had a detailed discussio n with the patient's son. I discussed with the patient's son, who was in [place], telephone [phone]. I explained about the patient's condition at length. At the moment, the patient wanted to hol d off CAT scan. Would consider having the patient general condition improves. The patient is s tatus post Billroth II gastrectomy, iron deficiency anemia. The patient would benefit from elective colonoscopy, would benefit from iron supplement and PPI. Consider colonoscopy after further optimiza tion of the patient. Thank you very much for allowing us to participate in the care of the patient. Dedrick Quintero MD cc: 416 TT: 09/03/2016 12:45:43 Confirmation # [id number] Dictation # [id number] mn
[2016-09-04] MEDS: Insulin Reg-LOW-Coverage SC SCH ×4 (00:14→17:39)
[2016-09-04] MEDS: Pantoprazole 40 mg EC Tab PO SCH (05:37)
[2016-09-04 10:28] LABS: HEMATOCRIT 28.7 % (42.0-52.0); MEAN CELL VOLUME 80.4 fL (80.0-105.0); MEAN CORPUSCULAR HEMOGLOBIN 25.2 pg (25.0-35.0); MEAN CORPUSCULAR HGB CONC 31.4 g/dl (31.0-37.0); MEAN PLATELET VOLUME 9.1 fl (7.0-11.0); RED CELL DISTRIBUTION WIDTH 17.3 % (11.5-14.5); WHITE BLOOD COUNT 6.4 10^3/ul (4.5-11.0)
--- NOTE | 2016-09-04 14:03 | PN ---
DATE: 09/04/2016 SUBJECTIVE: The patient is lying in bed in no acute distress. He denies chest pain or shortness of breath. There is no abdominal pain, nausea, vomiting or diarrhea. OBJECTIVE: VITAL SIGNS: Blood pressure 118/62, temperature 97.8, pulse 85, respiratory rate 16. LUNGS: Clear. HEART: Regular rate and rhythm. ABDOMEN: Soft, nontender, bowel sounds are normoactive. EXTREMITIES: Without cyanosis or edema. NEUROLOGIC: The patient is awake and oriented x 3 without focal sensory or motor deficits. SKIN: Warm and dry. LABORATORY DATA: WBC 6.4, hemoglobin 9.0, hematocrit 28.7, platelet count is 750,000. IMPRESSION: 1. Microcytic anemia, rule out gastrointestinal blood loss; hemoglobin and hematocrit are stable. 2. Reactive thrombocytosis. 3. Status post acute rhabdomyolysis secondary to immobility. 4. Failure to thrive syndrome, rule out occult malignancy. 5. 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 6. Coronary artery disease. 7. Type 2 diabetes mellitus/diet controlled. 8. Benign prostatic hypertrophy. 9. Chronic obstructive pulmonary disease. 10. Degenerative joint disease. PLAN: Case discussed with Dr. Quintero. Will schedule the patient for colonoscopy to rule out gastr ointestinal malignancy as source for anemia. Continue physical therapy for ambulation and social wor k for discharge planning. According to the nursing staff. The patient is dependent with ADLs - virla ot transfer independently, cannot bathe, toilet or dress independently. Will probably need 24-hour s upervision. Will discuss with family for possible long-term placement. Rickey Roth JD, MD cc: 353 TT: 09/04/2016 14:02:22 Confirmation # [id number] Dictation # [id number] nanci
[2016-09-04] MEDS ORDERED: Peg-Electrolyte Oral Soln 4L (Golytely) PO ONE (15:00)
--- NOTE | 2016-09-04 16:23 | PN ---
DATE: 09/04/2016 GI FOLLOWUP Seen and examined at the bedside earlier today. The patient with no new complaints. Denies any naus ea, vomiting, or abdominal pain. No reports of any overt GI bleed. VITAL SIGNS: Temperature is 98.1, blood pressure 128/72, pulse 75, respirations 16, 100 on room air. LABORATORY DATA: WBC is 6.4. H and H are 9.0 and 28.7. Platelets are 750 pending a manual count. Chem: No new CMP. PHYSICAL EXAMINATION: HEENT: Sclerae are anicteric. NECK: Supple. CARDIAC: S1, S2. LUNGS: With decreased breath sounds, but good air entry. No rales or wheeze. ABDOMEN: With bowel sounds, soft, nontender. No rebound or guarding. EXTREMITIES: No edema. NEUROLOGIC: Awake, alert, and oriented. ASSESSMENT: ____ with anemia, rule out gastrointestinal bleed. Also, with weight loss, history of r ecurrent pancreatitis, status post rhabdomyolysis. History of other comorbidities is history of suleman pushpa surgery, Billroth II. PLAN: The patient would benefit from colonoscopic evaluation. He will be prepared for tomorrow. Cl ear liquid diet is to be started this afternoon, and he is going to get GoLYTELY prep. The patient i s n.p.o. after clear liquid breakfast tomorrow. Dr. Quintero did have a detailed discussion with the patient's son in [place] regarding condition, and currently, CT scan of abdomen and pelvis with panc reatic protocol with IV contrast will be put on hold ____ the patient is status post acute renal fail ure on chronic kidney disease, renal insufficiency. We will continue PPI. The patient's Indocin has been discontinued. The patient was seen and case di scussed with Dr. Quintero who spoke to [facility]. Nancy CASTANON cc: 451 TT: 09/04/2016 14:23:46 Confirmation # [id number] Dictation # [id number] awilda
[2016-09-04 17:10] VITALS: O2SAT 90
--- NOTE | 2016-09-04 19:02 | PN ---
DATE: 09/04/2016 ADDENDUM: This is an addendum to the GI progress report dictated by Nancy Harrison APN. SUBJECTIVE: This patient was seen and evaluated earlier. No complaints of any abdominal pain. The concern is the patient is still anemic, history of loss of weight and appears cachectic, iron deficie ncy . The patient also a history of recurrent pancreatitis. I did discuss with the patient's s on yesterday and he does not want any CAT scan which involves IV contrast. However, I had a detailed discussed with the patient also. He would benefit from colonoscopy in view of the severe iron defic iency anemia to rule out any colonic neoplasia. The patient has Billroth II gastric surgery before. The patient is also planned to be transferred to long-term rehabilitation center. It is reasonable to consider colonoscopic evaluation. I also discussed with Dr. Roth, who agreed with and we w ill also discuss with the patient's son. Thank you very much for allowing us to participate in the care of the patient. Dedrick Quintero MD cc: [id number] TT: 09/04/2016 19:01:43 Confirmation # [id number] Dictation # [id number] mn
[2016-09-05] MEDS: Insulin Reg-LOW-Coverage SC SCH ×5 (00:52→21:41)
[2016-09-05] MEDS: Pantoprazole 40 mg EC Tab PO SCH (05:59)
[2016-09-05 06:57] LABS: ADD MANUAL DIFF? NO
[2016-09-05 07:06] LABS: BASO # 0.09 K/mm3 (0.0-2.0); EOS # 0.1 (0.0-0.7); EOS % 2.9 % (1.5-5.0); GRAN # 2.76 (1.4-6.5); GRAN % 61.2 % (50.0-68.0); HEMATOCRIT 28.3 % (42.0-52.0); LYMPH # 1.1 (1.2-3.4); LYMPH % 25.3 % (22.0-35.0); MEAN CELL VOLUME 78.6 fL (80.0-105.0); MEAN CORPUSCULAR HGB CONC 31.8 g/dl (31.0-37.0); MONO # 0.4 (0.1-0.6); MONO % 8.6 % (1.0-6.0); RED CELL DISTRIBUTION WIDTH 17.2 % (11.5-14.5); WHITE BLOOD COUNT 4.5 10^3/ul (4.5-11.0)
[2016-09-05 07:10] LABS: PLATELET COUNT 822 10^3/uL (120.0-450.0)
[2016-09-05 07:16] LABS: INR 1.05 (0.93-1.08); PARTIAL THROMBOPLASTIN TIME 26.1 Seconds (23.7-30.8)
[2016-09-05 07:33] LABS: BLOOD UREA NITROGEN 22 mg/dL (7-21); CALCIUM 10.3 mg/dL (8.4-10.5); CARBON DIOXIDE 27 mmol/L (21-33); CHLORIDE 100 mmol/L (98-107); GFR AFRICAN-AMERICAN > 60; GLUCOSE,RANDOM 75 mg/dL (70-110); POTASSIUM 4.9 mmol/L (3.6-5.0); SODIUM 131 mmol/L (132-148)
--- NOTE | 2016-09-05 14:55 | PN ---
DATE: 09/05/2016 SUBJECTIVE: The patient is lying in bed in no acute distress. He denies chest pain or shortness of breath. There is no abdominal pain, nausea, vomiting or diarrhea. OBJECTIVE: VITAL SIGNS: Blood pressure 145/86, temperature 97.2, pulse 78, respiratory rate 18. LUNGS: Clear. HEART: Regular rate and rhythm. ABDOMEN: Soft, nontender, bowel sounds are normoactive. EXTREMITIES: Without cyanosis, clubbing, or edema. NEUROLOGIC: The patient is awake and oriented x 3 without focal sensory or motor deficits. SKIN: Warm and dry. LABORATORY DATA: WBC is 4.0, hemoglobin 9.0, hematocrit 28.3, platelets are 822. Sodium 131, potass ium 4.9, chloride 100, CO2 27, BUN 9, creatinine 1.2, glucose 75. IMPRESSION: 1. Microcytic anemia, rule out gastrointestinal blood loss. 2. Reactive thrombocytosis. 3. Status post acute rhabdomyolysis secondary to immobility. 4. Failure to thrive syndrome, rule out occult malignancy. 5. 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 6. Coronary artery disease. 7. Type 2 diabetes mellitus, diet controlled. 8. Benign prostatic hypertrophy. 9. Chronic obstructive pulmonary disease. 10. Degenerative joint disease. 11. Chronic kidney disease. PLAN: The patient is scheduled for colonoscopy to rule out gastrointestinal malignancy as source for anemia. Continue physical therapy for ambulation and social work for discharge planning. Rickey Roth JD, MD cc: 353 TT: 09/05/2016 14:55:17 Confirmation # [id number] Dictation # [id number] mn
--- NOTE | 2016-09-05 19:31 | PN ---
DATE: 09/05/2016 SUBJECTIVE: This 88-year-old patient initially admitted with rhabdomyolysis, acute kidney injury on the top of chronic kidney disease, improved. The patient was subsequently transferred to the [facility] ional care unit for deconditioning. History of recurrent pancreatitis in the past. The patient also was found to be anemic with iron deficiency pattern. The patient is scheduled for an upper colonosc opy in view of the iron deficiency anemia. The last colonoscopy was nearly 7 years ago. PHYSICAL EXAMINATION: VITAL SIGNS: The patient afebrile, blood pressure 118/62. HEENT: Atraumatic, anicteric. NECK: Supple. HEART: S1, S2 heard. LUNGS: Bilateral air entry present. ABDOMEN: Soft. There is no mass palpable. No tenderness. LABORATORY DATA: Hemoglobin 9.0, hematocrit 28.3, WBC 4.5, platelets 822. IMPRESSION: Iron deficiency anemia. The patient is scheduled for an upper gastrointestinal endoscop y. The patient is scheduled for an upper gastrointestinal colonoscopic evaluation. Discussed with t taras patient's son earlier, by Nancy Harrison, and also I have discussed over the weekend with the matt kirkpatrick's son. Agreed for the procedure. Informed consent was obtained from the patient. The patient underwent a colonoscopy. Colon was found to be only fairly prepared. The areas of semi- solid stool prevented a good evaluation. There was no obvious bleeding source noticed. There was di verticulosis present. Extremely redundant colon, looping sigmoid colon noticed. Even after careful reduction, the scope could be advanced up to transverse colon. There were areas of semi-solid stool and extreme redundancy prevented further passage of the scope. The patient's scope was withdrawn. T he patient sent to the same day surgery unit. From there, the patient was discharged, to be re-admit trung to TCU. This patient has anemia, iron deficiency pattern. Would benefit from virtual colonoscop y which can be performed electively. The patient can be done electively. The patient did have a CT with oral contrast done in the past which did not show any obvious mass lesions in the colon. Wil govea with Dr. Roth regarding this patient again. Thank you very much for allowing us to participate in the care of the patient. Dedrick Quintero MD cc: [id number] TT: 09/05/2016 19:30:41 Confirmation # [id number] Dictation # [id number] dn
[2016-09-06] MEDS: Pantoprazole 40 mg EC Tab PO SCH (05:51)
[2016-09-06] MEDS: Insulin Reg-LOW-Coverage SC SCH (06:59)
[2016-09-06 11:49] VITALS: BP 139/74; PULSE 82; RESP 14; TEMP 98
--- NOTE | 2016-09-06 14:48 | PN ---
DATE: 09/06/2016 SUBJECTIVE: Seen and examined at the bedside this morning. Status post colonoscopy yesterday. He w as found to have diverticulosis in the sigmoid and descending colon with excessive loops. The scope was advanced to the transverse colon as there was semi-solid stool and redundancy. The patient denie s any nausea, vomiting, fever, chills, shortness of breath, chest pain or any abdominal pain. He is tolerating oral intake. No acute overnight events reported. VITAL SIGNS: Temperature is 98, blood pressure is 139/74, pulse 82, respirations 14, 95 on room air. LABORATORY DATA: No new labs are noted for today except for POC glucose at 112. PHYSICAL EXAMINATION: HEENT: Sclerae are anicteric. NECK: Supple. CARDIAC: S1, S2. LUNGS: With decreased breath sounds and good air entry, no rales or wheeze. ABDOMEN: With bowel sounds, soft, nontender, no rebound or guarding. ASSESSMENT: This is an 89-year-old male status post rhabdomyolysis. He is noted to have iron defici ency anemia, underwent colonoscopy, found to have diverticulosis, redundant colon. The colonoscope w as advanced up to the transverse colon as there was semi-solid stool. He also has recurrent pancreat itis, questionable pancreatic divisum, history of Billroth II gastric surgery. PLAN: The patient may benefit from a virtual colonoscopy which can be done outpatient electively. C ontinue diet as tolerated. He is on GI prophylaxis of Protonix. The patient will be going to a [facility] facility. The patient was seen and case discussed with Dr. Quintero. Nancy CASTANON cc: 451 TT: 09/06/2016 14:47:22 Confirmation # [id number] Dictation # [id number] tn
--- NOTE | 2016-09-06 20:05 | DS ---
HOSPITAL COURSE: The patient is an 89-year-old male admitted to the transitional care unit on 2016 for subacute rehab status post hospitalization for acute rhabdomyolysis due to immobility. The patient has had an uneventful course in the TCU, he is ambulating short distances with assistance, he is ADL dependent and is medically stable for transfer to a long-term facility. He is status post co lonoscopy, he had a poor prep, but no obvious masses were seen. There is no melena or bright red blo od per rectum, no nausea, vomiting or abdominal pain. The patient denies chest pain or shortness of breath. OBJECTIVE: VITAL SIGNS: Blood pressure 145/86, temperature 97.2, pulse 78, respiratory rate 18. LUNGS: Clear. HEART: Regular rate and rhythm. ABDOMEN: Soft, nontender, bowel sounds are normoactive. EXTREMITIES: Without cyanosis, clubbing, or edema. NEUROLOGIC: The patient is awake and oriented x 3 without focal sensory or motor deficits. SKIN: Warm and dry. IMPRESSION: 1. Microcytic anemia, rule out gastrointestinal blood loss. 2. Reactive thrombocytosis. 3. Status post acute rhabdomyolysis secondary to immobility. 4. Failure to thrive syndrome, rule out occult malignancy. 5. 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 6. Coronary artery disease. 7. Type 2 diabetes mellitus, diet controlled. 8. BPH. 9. COPD. 10. Degenerative joint disease. 11. Chronic kidney disease. PLAN: The patient will be discharged to subacute rehabilitation facility on the following medication s: Protonix 40 mg daily and vitamin D 2000 units daily, as well as low dose regular insulin coverage . He will be discharged on a regular diet. Activities as per the rehabilitation facility. Rickey Roth JD, MD cc: 353 TT: 09/06/2016 20:04:11 ga
--- NOTE | 2016-09-06 20:51 | PN ---
DATE: 09/06/2016 ADDENDUM This is an addendum to the GI progress report dictated by Nancy Harrison APN. This 89-year-old patient has multiple medical issues . The patient did have recurrent episodes of pancreatitis, but limi trung CT evaluation. Contrast study was not done as the patient's family was concerned about contrast- induced kidney injury. The patient want to defer that. Another problem is iron deficient anemia. T he patient is status post partial gastrectomy, Billroth II gastrectomy. The patient does have a diff use gastritis. The patient also has iron deficiency, had a colonoscopy done more than 7 years ago. I discussed with the patient's son and agreed for the colonoscopy. The patient underwent a colonosco py. The colon was extremely redundant and also the patient had fair preparation. I could not advanc e the scope beyond the transverse colon. The reasonable approach is for this patient to have CT colo nography as an outpatient. The patient is now being transferred to a long-term facility. The record s will be sent to the long-term care center to follow up regarding the followup care, and also follow up of the hemoglobin and hematocrit, followup CBC. Thank you very much for allowing us to participate in the care of the patient. Dedrick Quintero MD cc: [id number] TT: 09/06/2016 20:50:01 Confirmation # [id number] Dictation # [id number] nanci
== END 2016-09-06 11:49 | DRG 558 ==
LOC: TRCU 19:48
PROVIDERS: ADMIT Internal Medicine; ATTEND Internal Medicine
PROC: F07Z9ZZ Gait Training/Functional Ambulation Treatment (ICD-10-PCS; principal; 2016-08-26)
PROC: F07M6ZZ Therapeutic Exercise Treatment of Musculoskeletal System - Whole Body (ICD-10-PCS; 2016-08-26)
PROC: F08Z2ZZ Grooming/Personal Hygiene Treatment (ICD-10-PCS; 2016-08-28)
PROC: F08Z1ZZ Dressing Techniques Treatment (ICD-10-PCS; 2016-08-28)
PROC: F08Z0ZZ Bathing/Showering Techniques Treatment (ICD-10-PCS; 2016-08-28)
DX: M62.82 Rhabdomyolysis (principal); N17.9 Acute kidney failure, unspecified; R64 Cachexia; E11.22 Type 2 diabetes mellitus with diabetic chronic kidney disease; K86.1 Other chronic pancreatitis; Q43.8 Other specified congenital malformations of intestine; D47.3 Essential (hemorrhagic) thrombocythemia; D49.0 Neoplasm of unspecified behavior of digestive system; R62.7 Adult failure to thrive; D50.9 Iron deficiency anemia, unspecified; I25.10 Atherosclerotic heart disease of native coronary artery without angina pectoris; N18.9 Chronic kidney disease, unspecified; N40.0 Benign prostatic hyperplasia without lower urinary tract symptoms; M19.90 Unspecified osteoarthritis, unspecified site; K57.30 Diverticulosis of large intestine without perforation or abscess without bleeding; K29.70 Gastritis, unspecified, without bleeding; J44.9 Chronic obstructive pulmonary disease, unspecified; Z90.3 Acquired absence of stomach [part of]; Z87.11 Personal history of peptic ulcer disease; K86.89 Other specified diseases of pancreas

== ENCOUNTER 2016-09-05 13:44 | Day surgery (SDC) | payer MEDICARE ==
[2016-09-05] MEDS ORDERED: Propofol 10 mg/ml Inj (20 ML) ONE (15:22)
[2016-09-05] MEDS ORDERED: Sodium Chloride 0.9% 1,000 ML IV SCH (16:45)
[2016-09-05 16:59] VITALS: RESP 18; TEMP 97.8
[2016-09-05 18:04] VITALS: BP 154/74; PULSE 90; O2SAT 95
== END 2016-09-05 18:10 ==
LOC: ENDO 13:44
PROVIDERS: ATTEND Internal Medicine Gastroenterology
DX: D50.9 Iron deficiency anemia, unspecified (principal); K57.30 Diverticulosis of large intestine without perforation or abscess without bleeding; K64.8 Other hemorrhoids; E11.9 Type 2 diabetes mellitus without complications; I25.10 Atherosclerotic heart disease of native coronary artery without angina pectoris; E78.5 Hyperlipidemia, unspecified
CPT/HCPCS: 45378; 82948; J2001; J2704; J3010; J7040